=== PATIENT | female | born 1945 | race Caucasian/White ===

== ENCOUNTER 2020-06-30 13:04 | Inpatient (IN) | payer MEDICAID, MEDICARE, OTHER ==
[~2020-06-30] VITALS: Ht 154.9 cm; Wt 55.4 kg
[~2020-06-30 13:04] MED LIST: ASPI-482 PO; BYSTOLIC20 MG PO; CETI10TA16 PO; CITA40TA5 PO; HYDR12.58 PO; ISOS30TA4 PO; LEVO100T5 PO; LEVO50TA5 PO; LOSA100T14 PO; POTA10TA12 PO; SIMV40TA18 PO; ZOLP10TA4 PO
[2020-06-30 13:15] VITALS: BP 168/89
[2020-06-30] MEDS ORDERED: ONDANSETRON PF 4 MG/2 ML VIAL. IVP PRN (14:00)
[2020-06-30] MEDS ORDERED: HYDROmorphone 2 MG/ML VIAL IVP PRN (14:00)
[2020-06-30 14:49] LABS: BASO % 0 % (0-3); EOS % 0 % (0-3); HEMATOCRIT 34.3 % (36.0-47.0); HEMOGLOBIN 11.2 g/dL (12.0-15.5); LYMPH # 0.8 x10^3/uL (1.0-4.8); LYMPH % 7 % (24-48); MEAN CORPUSCULAR HEMOGLOBIN 30 pg (25-35); MEAN CORPUSCULAR HGB CONC 33 g/dL (31-37); MEAN CORPUSCULAR VOLUME 92 fL (79-100); MONO # 0.2 x10^3/uL (0.0-1.1); MONO % 2 % (0-9); NEUT # 10.7 x10^3/uL (1.8-7.7); NEUT % 91 % (31-73); PLATELET COUNT 329 x10^3/uL (140-400); RED BLOOD COUNT 3.72 x10^6/uL (3.50-5.40); RED CELL DISTRIBUTION WIDTH 19.9 % (11.5-14.5); WHITE BLOOD COUNT 11.8 x10^3/uL (4.0-11.0)
[2020-06-30 15:21] LABS: ALBUMIN 3.3 g/dL (3.4-5.0); ALBUMIN/GLOBULIN RATIO 1.3 (1.0-1.7); CALCIUM 8.5 mg/dL (8.5-10.1); CREATININE 1.3 mg/dL (0.6-1.0); GFR 39.9; POTASSIUM 4.3 mmol/L (3.5-5.1); TOTAL BILIRUBIN 1.4 mg/dL (0.2-1.0); TOTAL PROTEIN 5.9 g/dL (6.4-8.2)
--- NOTE | 2020-06-30 15:21 | PDOC2 ---
GI CONSULT Date of Service: DATE: 06/30/20 TIME: 15:00 Reason For Consult: abnormal CT A/P @ [facility] HPI: HPI: 75 y/o female transferred from [facility] w/ A Fib RVR. Reports sudden onset of "strong" chest pain and shortness of breath at home. She thinks it started yesterday. Associated w/ nausea and retching. Apparently got better but started again about 10 minutes ago. WBC 17.2, Hgb 13.5, MCV 99, plt 542, BUN 26, Cr 1.8, lactic 11.6 (to 8.9), bilirubin 2.5, AST 24, ALT 16, Alk Phos 86. CT A/P showed coronary artery calcifications, moderately dilated cardiomegaly, poor visualization of the GB w/ fluid and edema, mild splenomegaly, mild ascites, and cystic and solid lesions int he left adnexa concerning for ovarian cancer. Denies reflux/heartburn, dysphagia, diarrhea, hematochezia, and melena. Has had a bad taste in her mouth recently, even after drinking water. Sometimes has constipation - yesterday had some small hard stools and last "good" bowel movement was about 3 days ago. Daughter about a year ago - she didn't feel like eating for awhile and lost weight but recently has gained weight. No previous EGD or colonoscopy. No GB, liver, pancreas, or PUD history. Denies NSAID use. H/o A Fib on Eliquis. Also took 8 ASA when chest pain started. Indicates evaluation at [facility] 1.5 years ago - says she has "a mass in my uterus." Surgery was recommended but she had to have a stress test first. Says she did that but then no one ever called to schedule surgery and the mass doesn't bother her. PMH: PMH: A Fib, CAD w/ stents, HTN, [place], pneumonia, HLD, TORY, anxiety, OA, CKD, UTI, hypothyroidism FH: Family History: No pertinent hx Social History: Smoke: Quit (remote) ALCOHOL: none Drugs: None ROS: GEN: Denies fevers, chills, sweats HEENT: Denies blurred vision, sore throat CV: +CP RESP: +SOA GI: Per HPI : Denies hematuria, dysuria ENDO: fluctuating weight NEURO: Denies confusion, dizziness MSK: Denies weakness, joint pain/swelling SKIN: Denies jaundice, pruritus Vitals: Vitals: Vital Signs Date Time Temp Pulse Resp B/P (MAP) Pulse Ox O2 Delivery O2 Flow Rate FiO2 06/30/20 13:15 98.1 95 16 168/89 (115) 94 Room Air 98.1 Labs: Labs: Laboratory Tests Test 06/30/20 14:30 White Blood Count 11.8 x10^3/uL (4.0-11.0) Red Blood Count 3.72 x10^6/uL (3.50-5.40) Hemoglobin 11.2 g/dL (12.0-15.5) Hematocrit 34.3 % (36.0-47.0) Mean Corpuscular Volume 92 fL (79-100) Mean Corpuscular Hemoglobin 30 pg (25-35) Mean Corpuscular Hemoglobin Concent 33 g/dL (31-37) Red Cell Distribution Width 19.9 % (11.5-14.5) Platelet Count 329 x10^3/uL (140-400) Neutrophils (%) (Auto) 91 % (31-73) Lymphocytes (%) (Auto) 7 % (24-48) Monocytes (%) (Auto) 2 % (0-9) Eosinophils (%) (Auto) 0 % (0-3) Basophils (%) (Auto) 0 % (0-3) Neutrophils # (Auto) 10.7 x10^3/uL (1.8-7.7) Lymphocytes # (Auto) 0.8 x10^3/uL (1.0-4.8) Monocytes # (Auto) 0.2 x10^3/uL (0.0-1.1) Eosinophils # (Auto) 0.0 x10^3/uL (0.0-0.7) Basophils # (Auto) 0.0 x10^3/uL (0.0-0.2) Allergies: Coded Allergies: amlodipine (Verified Allergy, Intermediate, Swelling, 02/24/15) hydralazine (Verified Allergy, Intermediate, Rash, 02/24/15) morphine (Verified Allergy, Intermediate, 02/24/15) "makes me act loopy" sulfamethoxazole (Verified Allergy, Unknown, 02/24/15) trimethoprim (Verified Allergy, Unknown, 02/24/15) Imaging: Imaging: Per HPI. PE: GEN: anxious HEENT: Atraumatic, PERRL LUNGS: diminished anteriorly HEART: irregularly irregular - chest wall TTP (left, middle, right) ABD: NABS, soft, non-distended, some fullness to left EXTREMITY: trace BLE edema SKIN: No rashes, no jaundice NEURO/PSYCH: A & O 3 - a bit forgetful A/P: A/P: Chest pain, SOA Leukocytosis, lactic acidosis, SHASHANK, hyperbilirubinemia A Fib, h/o CAD Abnormal CT - poor visualization of the GB w/ fluid and edema, mild splenomegaly, mild ascites, cystic and solid lesions in the left adnexa concerning for ovarian cancer Dysgeusia Constipation CRC screen - none Depression R/o COVID-19 -- Await cardiology, MIG WELDER, and surgery evaluations - defer diet to them. 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 Treat constipation as able. Interval labs pending. MADDISON CARRENO Jun 30, 2020 15:21
[2020-06-30 15:27] LABS: % LYMPHS 9 % (24-48); % MONOS 3 % (0-10); % SEGS 88 % (35-66); ANISOCYTOSIS SLIGHT; PLT ESTIMATE ADEQUATE (ADEQUATE); POIKILOCYTOSIS SLIGHT
[2020-06-30 15:28] LABS: OVALOCYTES FEW; POLYCHROMASIA SLIGHT; TEAR DROP CELLS OCC
[2020-06-30 15:32] VITALS: BP 158/87
[2020-06-30] MEDS: IV NORMAL SALINE 1000ML BAG 1,000 ML IV SCH (16:18)
--- NOTE | 2020-06-30 16:26 | PDOC2 ---
SHERIF LARIOS FITNESS CONSULTANT 06/30/20 1626: CONSULT Date of Consult Date of Consult DATE: 06/30/20 TIME: 16:16 Reason for Consult Reason for Consult: abnormal CT Referring Physician Referring Physician: Dr austin Identification/Chief Complaint Chief Complaint SOA Source Source: Chart review, Patient History of Present Illness Reason for Visit: Admitted due to SOA--she said it was severe. She does have a significant cardia c hx. Denies abdominal pain, maybe some nausea with SOA. Does report she had a uterine mass that Paulo was planning to operate on, but had not been scheduled yet. Lab work concerning at [facility] with lactic acidosis, leukocystosis previous admission on 06/19, US done for post menopausal bleeding showed gallstones and possible cholecystitis CT also concerning for adnexal mass, possible neoplasm Past Medical History Cardiovascular: CAD, HTN, SD, Hyperlipidemia Pulmonary: Other CENTRAL NERVOUS SYSTEM: Other GI: No pertinent hx Heme/Onc: No pertinent hx Hepatobiliary: No pertinent hx Psych: Anxiety Musculoskeletal: Osteoarthritis Rheumatologic: No pertinent hx Infectious disease: No pertinent hx Renal/: Chronic renal insuff, UTI Endocrine: Hypothyroidism Past Surgical History Past Surgical History: Cataract Removal, Other Family History Family History: Diabetes, Stroke Social History Quit (remote) ALCOHOL: none Drugs: None Lives: with Family Domestic Violence: Neg Current Medications Current Medications Current Medications Sodium Chloride 1,000 ml @ 75 mls/hr [id number] IV ; Start 06/30/20 at 14:00 Hydromorphone HCl (Dilaudid) 1 mg PRN Q4HRS PRN IVP PAIN; Start 06/30/20 at 14:00 Ondansetron HCl (Zofran) 4 mg PRN Q4HRS PRN IVP NAUSEA/VOMITING; Start 06/30/20 at 14:00 Piperacillin Sod/ Tazobactam Sod 2.25 gm/Sodium Chloride 50 ml @ 100 mls/hr Q6HRS IV ; Start 06/30/20 at 14:00 Linezolid/Dextrose 300 ml @ 300 mls/hr Q12HR IV ; Start 06/30/20 at 21:00 Pantoprazole Sodium (Protonix) 40 mg DAILYAC PO ; Start 07/01/20 at 07:30 Polyethylene Glycol (miraLAX PACKET) 17 gm DAILY PO ; Start 07/01/20 at 09:00 Active Scripts Active Levothyroxine Sodium 50 Mcg Tablet 50 Tab PO DAILY Reported Isosorbide Mononitrate Er (Isosorbide Mononitrate) 30 Mg Tab.er.24h 1 Tab PO DAILY Hydrochlorothiazide Tablet (Hydrochlorothiazide) 12.5 Mg Tablet 1 Tab PO DAILY Losartan Potassium 100 Mg Tablet 1 Tab PO DAILY Citalopram Hbr (Citalopram Hydrobromide) 40 Mg Tablet 1 Tab PO HS Simvastatin 40 Mg Tablet 1 Tab PO QHS Aspir 81 (Aspirin) 81 Mg Tablet.dr 1 Tab PO DAILY Potassium Chloride 10 Meq Capsule.er 20 Meq PO BIDWMEALS Zolpidem Tartrate 10 Mg Tablet 10 Mg PO PRN QHS PRN Cetirizine Hcl 10 Mg Tablet 1 Tab PO PRN DAILY PRN Bystolic (Nebivolol Hcl) 20 Mg Tablet 1 Tab PO DAILY Allergies Allergies: Coded Allergies: amlodipine (Verified Allergy, Intermediate, Swelling, 02/24/15) hydralazine (Verified Allergy, Intermediate, Rash, 02/24/15) morphine (Verified Allergy, Intermediate, 02/24/15) "makes me act loopy" sulfamethoxazole (Verified Allergy, Unknown, 02/24/15) trimethoprim (Verified Allergy, Unknown, 02/24/15) ROS General: YES: Appetite (low); No: Chills PSYCHOLOGICAL ROS: No: Anxiety, Depression Eyes: No Blurry vision, No Double vision HEENT: No: Heacaches, Sore Throat Hematological and Lymphatic: YES: Bleeding Problems; No: Blood Clots Respiratory: YES: Shortness of breath; No: Cough Cardiovascular: yes Chest Pain; No Palpitations Gastrointestinal: Yes Nausea; No Vomiting, No Abdominal Pain Genitourinary: No Dysuria, No Hematuria Musculoskeletal: No Joint Pain, No Muscular Weakness Neurological: No Impaired Coord/balance, No Numbness/Tingling Skin: Yes Rash (laceration to right echavarria); No Pruritus Physical Exam General: Alert, Cooperative, No acute distress HEENT: Atraumatic, PERRLA Lungs: Clear to auscultation, Normal air movement Heart: Regular rate, Normal S1, Normal S2 Abdomen: Soft, Other (mildly ttp epigastric ) Extremities: No clubbing, No cyanosis Skin: No rashes, Other (right echavarria scabbed area) Neuro: Normal speech, Sensation intact Psych/Mental Status: Mental status NL, Mood NL Vitals VITALS Vital Signs Date Time Temp Pulse Resp B/P (MAP) Pulse Ox O2 Delivery O2 Flow Rate FiO2 06/30/20 15:32 98.3 94 16 158/87 (110) 96 Room Air 98.3 Labs Labs Laboratory Tests Test 06/30/20 14:30 06/30/20 15:32 White Blood Count 11.8 x10^3/uL (4.0-11.0) Red Blood Count 3.72 x10^6/uL (3.50-5.40) Hemoglobin 11.2 g/dL (12.0-15.5) Hematocrit 34.3 % (36.0-47.0) Mean Corpuscular Volume 92 fL (79-100) Mean Corpuscular Hemoglobin 30 pg (25-35) Mean Corpuscular Hemoglobin Concent 33 g/dL (31-37) Red Cell Distribution Width 19.9 % (11.5-14.5) Platelet Count 329 x10^3/uL (140-400) Neutrophils (%) (Auto) 91 % (31-73) Lymphocytes (%) (Auto) 7 % (24-48) Monocytes (%) (Auto) 2 % (0-9) Eosinophils (%) (Auto) 0 % (0-3) Basophils (%) (Auto) 0 % (0-3) Neutrophils # (Auto) 10.7 x10^3/uL (1.8-7.7) Lymphocytes # (Auto) 0.8 x10^3/uL (1.0-4.8) Monocytes # (Auto) 0.2 x10^3/uL (0.0-1.1) Eosinophils # (Auto) 0.0 x10^3/uL (0.0-0.7) Basophils # (Auto) 0.0 x10^3/uL (0.0-0.2) Segmented Neutrophils % 88 % (35-66) Lymphocytes % 9 % (24-48) Monocytes % 3 % (0-10) Platelet Estimate Adequate (ADEQUATE) Polychromasia Slight Poikilocytosis Slight Anisocytosis Slight Tear Drop Cells Occ Ovalocytes Few Sodium Level 139 mmol/L (136-145) Potassium Level 4.3 mmol/L (3.5-5.1) Chloride Level 104 mmol/L (98-107) Carbon Dioxide Level 25 mmol/L (21-32) Anion Gap 10 (6-14) Blood Urea Nitrogen 30 mg/dL (7-20) Creatinine 1.3 mg/dL (0.6-1.0) Estimated GFR (Cockcroft-Gault) 39.9 BUN/Creatinine Ratio 23 (6-20) Glucose Level 104 mg/dL (70-99) Lactic Acid Level 1.6 mmol/L (0.4-2.0) Calcium Level 8.5 mg/dL (8.5-10.1) Total Bilirubin 1.4 mg/dL (0.2-1.0) Aspartate Amino Transf (AST/SGOT) 195 U/L (15-37) Alanine Aminotransferase (ALT/SGPT) 78 U/L (14-59) Alkaline Phosphatase 71 U/L (46-116) Lactate Dehydrogenase 541 U/L (81-234) Total Protein 5.9 g/dL (6.4-8.2) Albumin 3.3 g/dL (3.4-5.0) Albumin/Globulin Ratio 1.3 (1.0-1.7) Lipase 104 U/L (73-393) SARS-CoV-2 Antigen (Rapid) Negative (NEGATIVE) Laboratory Tests Test 06/30/20 14:30 06/30/20 15:32 White Blood Count 11.8 x10^3/uL (4.0-11.0) Red Blood Count 3.72 x10^6/uL (3.50-5.40) Hemoglobin 11.2 g/dL (12.0-15.5) Hematocrit 34.3 % (36.0-47.0) Mean Corpuscular Volume 92 fL (79-100) Mean Corpuscular Hemoglobin 30 pg (25-35) Mean Corpuscular Hemoglobin Concent 33 g/dL (31-37) Red Cell Distribution Width 19.9 % (11.5-14.5) Platelet Count 329 x10^3/uL (140-400) Neutrophils (%) (Auto) 91 % (31-73) Lymphocytes (%) (Auto) 7 % (24-48) Monocytes (%) (Auto) 2 % (0-9) Eosinophils (%) (Auto) 0 % (0-3) Basophils (%) (Auto) 0 % (0-3) Neutrophils # (Auto) 10.7 x10^3/uL (1.8-7.7) Lymphocytes # (Auto) 0.8 x10^3/uL (1.0-4.8) Monocytes # (Auto) 0.2 x10^3/uL (0.0-1.1) Eosinophils # (Auto) 0.0 x10^3/uL (0.0-0.7) Basophils # (Auto) 0.0 x10^3/uL (0.0-0.2) Segmented Neutrophils % 88 % (35-66) Lymphocytes % 9 % (24-48) Monocytes % 3 % (0-10) Platelet Estimate Adequate (ADEQUATE) Polychromasia Slight Poikilocytosis Slight Anisocytosis Slight Tear Drop Cells Occ Ovalocytes Few Sodium Level 139 mmol/L (136-145) Potassium Level 4.3 mmol/L (3.5-5.1) Chloride Level 104 mmol/L (98-107) Carbon Dioxide Level 25 mmol/L (21-32) Anion Gap 10 (6-14) Blood Urea Nitrogen 30 mg/dL (7-20) Creatinine 1.3 mg/dL (0.6-1.0) Estimated GFR (Cockcroft-Gault) 39.9 BUN/Creatinine Ratio 23 (6-20) Glucose Level 104 mg/dL (70-99) Lactic Acid Level 1.6 mmol/L (0.4-2.0) Calcium Level 8.5 mg/dL (8.5-10.1) Total Bilirubin 1.4 mg/dL (0.2-1.0) Aspartate Amino Transf (AST/SGOT) 195 U/L (15-37) Alanine Aminotransferase (ALT/SGPT) 78 U/L (14-59) Alkaline Phosphatase 71 U/L (46-116) Lactate Dehydrogenase 541 U/L (81-234) Total Protein 5.9 g/dL (6.4-8.2) Albumin 3.3 g/dL (3.4-5.0) Albumin/Globulin Ratio 1.3 (1.0-1.7) Lipase 104 U/L (73-393) SARS-CoV-2 Antigen (Rapid) Negative (NEGATIVE) Assessment/Plan Assessment/Plan SOA, AFIB, CHF, CAD stents--on eliquis--on hold cholelithiasis -? cholecystitis--T bili 2.5, leukocytosis, lactic acid adnexal mass--double corner cutter consult pending, ? seen at [facility] for this will check HIDA to assess for cholecystitis ANCA MORALES MD 06/30/20 1717: CONSULT Assessment/Plan Assessment/Plan Agree with above plan SHERIF LARIOS APRN Jun 30, 2020 16:26 ANCA MORALES MD Jun 30, 2020 17:17
[2020-06-30] MEDS: PIPERACILLIN/TAZOBACTAM 2.25 GM in IV NORMAL SALINE 50ML 50 ML IV SCH ×3 (18:00→23:32)
[2020-06-30] MEDS ORDERED: INFLUENZA VAX SCREEN BY RX. MC ONE (18:45)
[2020-06-30] MEDS ORDERED: FLU VACC QS 2020-21(6MOS+)/PF 0.5 ML SYRINGE. VAX IM ONE (18:45)
[2020-06-30 19:00] VITALS: BP 171/104
--- NOTE | 2020-06-30 19:50 | NUR ---
Checked with patient's pharmacy, [facility] if received flu vaccine. They reported that she did not received flu vaccine at their store.
--- NOTE | 2020-06-30 20:57 | NUR ---
Pt offered flu vaccine this evening. Pt requests to hold off until the morning. Will recheck in the AM and pass along to day RN.
[2020-06-30 23:04] VITALS: BP 168/75
[2020-07-01] VITALS (8 sets, daily range): BP systolic 152–189; BP diastolic 87–107
[2020-07-01] MEDS: PIPERACILLIN/TAZOBACTAM 2.25 GM in IV NORMAL SALINE 50ML 50 ML IV SCH ×4 (05:33→23:37)
[2020-07-01] MEDS: IV NORMAL SALINE 1000ML BAG 1,000 ML IV SCH ×2 (05:33→18:02)
[2020-07-01] MEDS: PANTOPRAZOLE 40 MG TABLET.DR. PO SCH ×2 (07:30→10:50)
[2020-07-01] MEDS: POLYETHYLENE GLYCOL 3350 17 GM PACKET. PO SCH ×2 (09:00→10:50)
--- NOTE | 2020-07-01 09:23 | RAD ---
EXAM: HEPATOBILIARY SCINTIGRAPHY. HISTORY: Gallbladder wall thickening, concern for cholecystitis TECHNIQUE: 5.5 mCi technetium-99m Choletec were administered intravenously and scintigraphic images of the abdomen obtained. FINDINGS: There is prompt hepatic clearance of tracer from the blood pool. There is homogeneous distribution throughout the liver. There is normal filling of the gallbladder and clearance into the biliary tree and small bowel. IMPRESSION: 1. The gallbladder fills with activity indicating cystic duct patency. Electronically signed by: Citlalli Malone MD (07/01/2020 9:20 AM) [id number]
--- NOTE | 2020-07-01 09:32 | PDOC2 ---
CONSULT Date of Consult Date of Consult DATE: 07/01/20 TIME: 09:31 Reason for Consult Reason for Consult: Abnml CT History of Present Illness Reason for Visit: The pt is a 75y who presented to the ER with CP and SOA. In the course of her w/u the pt underwent imaging. A CT revealed the followin. Coronary artery calcifications. Moderately dilated cardiomegaly likely secondary to ischemic cardiomyopathy. 2. Poor visualization of the gallbladder with fluid and edema and loss of fat planes between the gallbladder fossa and surrounding structures suggest acute cholecystitis. Gallbladder cancer is felt be less likely. 3. Mild splenomegaly. 4. Mild ascites. 5. Cystic and solid lesions in the left adnexa likely ovarian cancer. An u/s revealed the following: Abnormal pelvic ultrasound showing large left adnexal 7.2 cm cyst and a small amount of pelvic free fluid. The solid mass of the left adnexa seen on earlier same day CT is obscured on transabdominal pelvic ultrasound by bowel gas but remains concerning for possible primary left ovarian neoplasm. This could be benign or malignant. Gynecologic oncology referral is recommended. Consider also endovaginal ultrasound when clinically feasible. The pt reports that about 1.5yr ago she was evaluated at [facility] where she was told she has a mass in my uterus. The pt does not recall what initiated the w/u, but likely PMB. From our discussion it sounds like they clear expressed that the mass was on the uterus (likely fibroid). Although they did say they were concerned about CA, plus no uterine masses were seen on this admissions imaging. She was to undergo a stress test but after completion was never contacted for surgery. 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 She states that she went through changes in her life early, but also states that she stopped having period later than usual. The pt states that she took ERT/HRT for about yr. Menarche 17yo Past Medical History Cardiovascular: CAD, HTN, [place], Hyperlipidemia Pulmonary: Other CENTRAL NERVOUS SYSTEM: Other GI: No pertinent hx Heme/Onc: No pertinent hx Hepatobiliary: No pertinent hx Psych: Anxiety Musculoskeletal: Osteoarthritis Rheumatologic: No pertinent hx Infectious disease: No pertinent hx Renal/: Chronic renal insuff, UTI Endocrine: Hypothyroidism Past Surgical History Past Surgical History: Cataract Removal, Other Family History Family History: Diabetes, Stroke Social History Quit (remote) ALCOHOL: none Drugs: None Lives: with Family Domestic Violence: Neg Current Medications Current Medications Current Medications Sodium Chloride 1,000 ml @ 75 mls/hr [id number] IV Last administered on 06/13 at 05:33; Start 06/30/20 at 14:00 Hydromorphone HCl (Dilaudid) 1 mg PRN Q4HRS PRN IVP PAIN; Start 06/30/20 at 14:00 Ondansetron HCl (Zofran) 4 mg PRN Q4HRS PRN IVP NAUSEA/VOMITING; Start 06/30/20 at 14:00 Piperacillin Sod/ Tazobactam Sod 2.25 gm/Sodium Chloride 50 ml @ 100 mls/hr Q6HRS IV Last administered on 07/01/20at 05:33; Start 06/30/20 at 14:00 Linezolid/Dextrose 300 ml @ 300 mls/hr Q12HR IV Last administered on 06/30/20at 20:56; Start 06/30/20 at 21:00 Pantoprazole Sodium (Protonix) 40 mg DAILYAC PO ; Start 07/01/20 at 07:30 Polyethylene Glycol (miraLAX PACKET) 17 gm DAILY PO ; Start 07/01/20 at 09:00 Info (FLU VACCINE SCREEN per RX) 1 each 1X ONCE MC Last administered on 06/30/20at 19:00; Start 06/30/20 at 18:45; Stop 06/30/20 at 18:46; Status DC Influenza Virus Vaccine Quadrival (Fluzone Quad [id number] Syringe) 0.5 ml ONCE ONCE VAX IM ; Start 06/30/20 at 18:45; Stop 06/30/20 at 18:46; Status DC Active Scripts Active Levothyroxine Sodium 50 Mcg Tablet 50 Tab PO DAILY Reported Isosorbide Mononitrate Er (Isosorbide Mononitrate) 30 Mg Tab.er.24h 1 Tab PO DAILY Hydrochlorothiazide Tablet (Hydrochlorothiazide) 12.5 Mg Tablet 1 Tab PO DAILY Losartan Potassium 100 Mg Tablet 1 Tab PO DAILY Citalopram Hbr (Citalopram Hydrobromide) 40 Mg Tablet 1 Tab PO HS Simvastatin 40 Mg Tablet 1 Tab PO QHS Aspir 81 (Aspirin) 81 Mg Tablet.dr 1 Tab PO DAILY Potassium Chloride 10 Meq Capsule.er 20 Meq PO BIDWMEALS Zolpidem Tartrate 10 Mg Tablet 10 Mg PO PRN QHS PRN Cetirizine Hcl 10 Mg Tablet 1 Tab PO PRN DAILY PRN Bystolic (Nebivolol Hcl) 20 Mg Tablet 1 Tab PO DAILY Allergies Allergies: Coded Allergies: amlodipine (Verified Allergy, Intermediate, Swelling, 02/24/15) hydralazine (Verified Allergy, Intermediate, Rash, 02/24/15) morphine (Verified Allergy, Intermediate, 02/24/15) "makes me act loopy" sulfamethoxazole (Verified Allergy, Intermediate, 07/01/20) trimethoprim (Verified Allergy, Intermediate, 07/01/20) Physical Exam HEENT: PERRLA, Mucous membr. moist/pink Lungs: Clear to auscultation, Normal air movement Heart: Regular rate, Normal S1, Normal S2, No murmurs Abdomen: Normal bowel sounds, Soft, No tenderness, No hepatosplenomegaly, No masses Extremities: No clubbing, No cyanosis, No edema, Normal pulses, No tenderness/swelling Skin: No rashes, No breakdown Vitals VITALS Vital Signs Date Time Temp Pulse Resp B/P (MAP) Pulse Ox O2 Delivery O2 Flow Rate FiO2 07/01/20 07:00 98.9 105 18 189/100 (129) 94 Room Air 98.9 Labs Labs Laboratory Tests Test 06/30/20 14:30 06/30/20 15:32 White Blood Count 11.8 x10^3/uL (4.0-11.0) Red Blood Count 3.72 x10^6/uL (3.50-5.40) Hemoglobin 11.2 g/dL (12.0-15.5) Hematocrit 34.3 % (36.0-47.0) Mean Corpuscular Volume 92 fL (79-100) Mean Corpuscular Hemoglobin 30 pg (25-35) Mean Corpuscular Hemoglobin Concent 33 g/dL (31-37) Red Cell Distribution Width 19.9 % (11.5-14.5) Platelet Count 329 x10^3/uL (140-400) Neutrophils (%) (Auto) 91 % (31-73) Lymphocytes (%) (Auto) 7 % (24-48) Monocytes (%) (Auto) 2 % (0-9) Eosinophils (%) (Auto) 0 % (0-3) Basophils (%) (Auto) 0 % (0-3) Neutrophils # (Auto) 10.7 x10^3/uL (1.8-7.7) Lymphocytes # (Auto) 0.8 x10^3/uL (1.0-4.8) Monocytes # (Auto) 0.2 x10^3/uL (0.0-1.1) Eosinophils # (Auto) 0.0 x10^3/uL (0.0-0.7) Basophils # (Auto) 0.0 x10^3/uL (0.0-0.2) Segmented Neutrophils % 88 % (35-66) Lymphocytes % 9 % (24-48) Monocytes % 3 % (0-10) Platelet Estimate Adequate (ADEQUATE) Polychromasia Slight Poikilocytosis Slight Anisocytosis Slight Tear Drop Cells Occ Ovalocytes Few Sodium Level 139 mmol/L (136-145) Potassium Level 4.3 mmol/L (3.5-5.1) Chloride Level 104 mmol/L (98-107) Carbon Dioxide Level 25 mmol/L (21-32) Anion Gap 10 (6-14) Blood Urea Nitrogen 30 mg/dL (7-20) Creatinine 1.3 mg/dL (0.6-1.0) Estimated GFR (Cockcroft-Gault) 39.9 BUN/Creatinine Ratio 23 (6-20) Glucose Level 104 mg/dL (70-99) Lactic Acid Level 1.6 mmol/L (0.4-2.0) Calcium Level 8.5 mg/dL (8.5-10.1) Total Bilirubin 1.4 mg/dL (0.2-1.0) Aspartate Amino Transf (AST/SGOT) 195 U/L (15-37) Alanine Aminotransferase (ALT/SGPT) 78 U/L (14-59) Alkaline Phosphatase 71 U/L (46-116) Lactate Dehydrogenase 541 U/L (81-234) Total Protein 5.9 g/dL (6.4-8.2) Albumin 3.3 g/dL (3.4-5.0) Albumin/Globulin Ratio 1.3 (1.0-1.7) Lipase 104 U/L (73-393) SARS-CoV-2 Antigen (Rapid) Negative (NEGATIVE) Laboratory Tests Test 06/30/20 14:30 06/30/20 15:32 White Blood Count 11.8 x10^3/uL (4.0-11.0) Red Blood Count 3.72 x10^6/uL (3.50-5.40) Hemoglobin 11.2 g/dL (12.0-15.5) Hematocrit 34.3 % (36.0-47.0) Mean Corpuscular Volume 92 fL (79-100) Mean Corpuscular Hemoglobin 30 pg (25-35) Mean Corpuscular Hemoglobin Concent 33 g/dL (31-37) Red Cell Distribution Width 19.9 % (11.5-14.5) Platelet Count 329 x10^3/uL (140-400) Neutrophils (%) (Auto) 91 % (31-73) Lymphocytes (%) (Auto) 7 % (24-48) Monocytes (%) (Auto) 2 % (0-9) Eosinophils (%) (Auto) 0 % (0-3) Basophils (%) (Auto) 0 % (0-3) Neutrophils # (Auto) 10.7 x10^3/uL (1.8-7.7) Lymphocytes # (Auto) 0.8 x10^3/uL (1.0-4.8) Monocytes # (Auto) 0.2 x10^3/uL (0.0-1.1) Eosinophils # (Auto) 0.0 x10^3/uL (0.0-0.7) Basophils # (Auto) 0.0 x10^3/uL (0.0-0.2) Segmented Neutrophils % 88 % (35-66) Lymphocytes % 9 % (24-48) Monocytes % 3 % (0-10) Platelet Estimate Adequate (ADEQUATE) Polychromasia Slight Poikilocytosis Slight Anisocytosis Slight Tear Drop Cells Occ Ovalocytes Few Sodium Level 139 mmol/L (136-145) Potassium Level 4.3 mmol/L (3.5-5.1) Chloride Level 104 mmol/L (98-107) Carbon Dioxide Level 25 mmol/L (21-32) Anion Gap 10 (6-14) Blood Urea Nitrogen 30 mg/dL (7-20) Creatinine 1.3 mg/dL (0.6-1.0) Estimated GFR (Cockcroft-Gault) 39.9 BUN/Creatinine Ratio 23 (6-20) Glucose Level 104 mg/dL (70-99) Lactic Acid Level 1.6 mmol/L (0.4-2.0) Calcium Level 8.5 mg/dL (8.5-10.1) Total Bilirubin 1.4 mg/dL (0.2-1.0) Aspartate Amino Transf (AST/SGOT) 195 U/L (15-37) Alanine Aminotransferase (ALT/SGPT) 78 U/L (14-59) Alkaline Phosphatase 71 U/L (46-116) Lactate Dehydrogenase 541 U/L (81-234) Total Protein 5.9 g/dL (6.4-8.2) Albumin 3.3 g/dL (3.4-5.0) Albumin/Globulin Ratio 1.3 (1.0-1.7) Lipase 104 U/L (73-393) SARS-CoV-2 Antigen (Rapid) Negative (NEGATIVE) Assessment/Plan Assessment/Plan Assessment: 75y who admitted for CP and SOA Recommendations 1.) Ovarian mass Due to pt age, size of the mass and ascites very likely an ovarian CA. It is unclear if they were aware of this mass previously based on her history. The pt should be referred to a GynOnc for eval to determine if she is a candidate for surgery or chemotherapy. 2.) PMB previously w/u, may be were mass was first noted Chest pain, SOA cardiology consulted, Chronic probable diastolic CHF; appears compensated 3.) A Fib, h/o CAD cardiology consulted, s/p PCI/stents 4.) Poor visualization of the GB w/ fluid and edema, mild splenomegaly, mild ascites, cystic along with the ovarian findings GI and Gen Surgery consulted 5.) Depression 6.) Rapid Covid neg 7.) SHASHANK on CKD, hyperkalemia 8.) Hypertension; controlled 9.) Hypothyroidism 10.) Encephalopathy vs dementia SONNY MORALES MD Jul 01, 2020 09:32
--- NOTE | 2020-07-01 09:40 | PDOC ---
Date of Service: DATE: 07/01/20 TIME: 09:35 Subjective: Subjective: Denies pain. Objective: Objective: Able to review other records: Abd US 06/17/20 @ [facility]: cholelithiasis w/ sludge and GB wall thickening and pericholecystic fluid, mild splenomegaly, CBD 4.1 mm. Reviewed SENIOR MANAGEMENT CONSULTANT note - refer to GynOnc for probable ovarian cancer. Vital Signs: Vital Signs Date Time Temp Pulse Resp B/P (MAP) Pulse Ox O2 Delivery O2 Flow Rate FiO2 07/01/20 07:00 98.9 105 18 189/100 (129) 94 Room Air 98.9 Labs: Laboratory Tests Test 06/30/20 14:30 06/30/20 15:32 White Blood Count 11.8 x10^3/uL Red Blood Count 3.72 x10^6/uL Hemoglobin 11.2 g/dL Hematocrit 34.3 % Mean Corpuscular Volume 92 fL Mean Corpuscular Hemoglobin 30 pg Mean Corpuscular Hemoglobin Concent 33 g/dL Red Cell Distribution Width 19.9 % Platelet Count 329 x10^3/uL Neutrophils (%) (Auto) 91 % Lymphocytes (%) (Auto) 7 % Monocytes (%) (Auto) 2 % Eosinophils (%) (Auto) 0 % Basophils (%) (Auto) 0 % Neutrophils # (Auto) 10.7 x10^3/uL Lymphocytes # (Auto) 0.8 x10^3/uL Monocytes # (Auto) 0.2 x10^3/uL Eosinophils # (Auto) 0.0 x10^3/uL Basophils # (Auto) 0.0 x10^3/uL Segmented Neutrophils % 88 % Lymphocytes % 9 % Monocytes % 3 % Platelet Estimate Adequate Polychromasia Slight Poikilocytosis Slight Anisocytosis Slight Tear Drop Cells Occ Ovalocytes Few Sodium Level 139 mmol/L Potassium Level 4.3 mmol/L Chloride Level 104 mmol/L Carbon Dioxide Level 25 mmol/L Anion Gap 10 Blood Urea Nitrogen 30 mg/dL Creatinine 1.3 mg/dL Estimated GFR (Cockcroft-Gault) 39.9 BUN/Creatinine Ratio 23 Glucose Level 104 mg/dL Lactic Acid Level 1.6 mmol/L Calcium Level 8.5 mg/dL Total Bilirubin 1.4 mg/dL Aspartate Amino Transf (AST/SGOT) 195 U/L Alanine Aminotransferase (ALT/SGPT) 78 U/L Alkaline Phosphatase 71 U/L Lactate Dehydrogenase 541 U/L Total Protein 5.9 g/dL Albumin 3.3 g/dL Albumin/Globulin Ratio 1.3 Lipase 104 U/L SARS-CoV-2 Antigen (Rapid) Negative Imaging: HIDA 07/01 IMPRESSION: 1. The gallbladder fills with activity indicating cystic duct patency. PE: GEN: NAD LUNGS: clear anteriorly HEART: irregular ABD: NABS, S/ND/NT NEURO/PSYCH: A & O 3, forgetful A/P: Chest pain, SOA - resolved Leukocytosis, lactic acidosis, SHASHANK, hyperbilirubinemia - no labs today A Fib, h/o CAD Cholelithiasis - no cholecystitis per HIDA as above Rapid COVID negative -- She's not a good historian. Recheck labs. Justicifation of Admission Dx: Justifications for Admission: Justification of Admission Dx: Yes MADDISON CARRENO Jul 01, 2020 09:40
--- NOTE | 2020-07-01 10:10 | NUR ---
SW following. Discussed with RN, pt from home alone, room air, NPO. Pt having a HIDA scan today. Per BUSINESS DEVELOPMENT MANAGER note refer to BUSINESS DEVELOPMENT MANAGER ONC for probable ovarian cancer. SW spoke with Dr. Ryder, he will let SW know the plan when he sees pt this morning. SW expressed concern to Dr. Ryder RE inpatient hospital transfer because of hospitals in our area being at capacity due to COVID and short staff. SW will continue to follow.
[2020-07-01] MEDS ORDERED: CETIRIZINE HCL 10 MG TABLET. PO PRN (10:15)
[2020-07-01] MEDS ORDERED: ACETAMINOPHEN 325 MG TABLET. PO PRN (10:15)
--- NOTE | 2020-07-01 10:24 | PDOC ---
SHERIF LARIOS PROFESSOR OF GENETICS 07/01/20 1024: SURGICAL PROGRESS NOTE DATE: 07/01/20 TIME: 10:23 Subjective no abdominal pain hungry Vital Signs Vital Signs Date Time Temp Pulse Resp B/P (MAP) Pulse Ox O2 Delivery O2 Flow Rate FiO2 07/01/20 07:00 98.9 105 18 189/100 (129) 94 Room Air 98.9 I&O Intake and Output 07/01/20 07:00 Intake Total 1400 ml Output Total 300 ml Balance 1100 ml Intake Oral 0 ml IV Total 1400 ml Output Urine Total 300 ml # Voids 1 General: Alert, Oriented X3, Cooperative Abdomen: Soft, No tenderness Labs Laboratory Tests Test 06/30/20 14:30 06/30/20 15:32 White Blood Count 11.8 x10^3/uL (4.0-11.0) Red Blood Count 3.72 x10^6/uL (3.50-5.40) Hemoglobin 11.2 g/dL (12.0-15.5) Hematocrit 34.3 % (36.0-47.0) Mean Corpuscular Volume 92 fL (79-100) Mean Corpuscular Hemoglobin 30 pg (25-35) Mean Corpuscular Hemoglobin Concent 33 g/dL (31-37) Red Cell Distribution Width 19.9 % (11.5-14.5) Platelet Count 329 x10^3/uL (140-400) Neutrophils (%) (Auto) 91 % (31-73) Lymphocytes (%) (Auto) 7 % (24-48) Monocytes (%) (Auto) 2 % (0-9) Eosinophils (%) (Auto) 0 % (0-3) Basophils (%) (Auto) 0 % (0-3) Neutrophils # (Auto) 10.7 x10^3/uL (1.8-7.7) Lymphocytes # (Auto) 0.8 x10^3/uL (1.0-4.8) Monocytes # (Auto) 0.2 x10^3/uL (0.0-1.1) Eosinophils # (Auto) 0.0 x10^3/uL (0.0-0.7) Basophils # (Auto) 0.0 x10^3/uL (0.0-0.2) Segmented Neutrophils % 88 % (35-66) Lymphocytes % 9 % (24-48) Monocytes % 3 % (0-10) Platelet Estimate Adequate (ADEQUATE) Polychromasia Slight Poikilocytosis Slight Anisocytosis Slight Tear Drop Cells Occ Ovalocytes Few Sodium Level 139 mmol/L (136-145) Potassium Level 4.3 mmol/L (3.5-5.1) Chloride Level 104 mmol/L (98-107) Carbon Dioxide Level 25 mmol/L (21-32) Anion Gap 10 (6-14) Blood Urea Nitrogen 30 mg/dL (7-20) Creatinine 1.3 mg/dL (0.6-1.0) Estimated GFR (Cockcroft-Gault) 39.9 BUN/Creatinine Ratio 23 (6-20) Glucose Level 104 mg/dL (70-99) Lactic Acid Level 1.6 mmol/L (0.4-2.0) Calcium Level 8.5 mg/dL (8.5-10.1) Total Bilirubin 1.4 mg/dL (0.2-1.0) Aspartate Amino Transf (AST/SGOT) 195 U/L (15-37) Alanine Aminotransferase (ALT/SGPT) 78 U/L (14-59) Alkaline Phosphatase 71 U/L (46-116) Lactate Dehydrogenase 541 U/L (81-234) Total Protein 5.9 g/dL (6.4-8.2) Albumin 3.3 g/dL (3.4-5.0) Albumin/Globulin Ratio 1.3 (1.0-1.7) Lipase 104 U/L (73-393) SARS-CoV-2 Antigen (Rapid) Negative (NEGATIVE) Laboratory Tests Test 06/30/20 14:30 06/30/20 15:32 White Blood Count 11.8 x10^3/uL (4.0-11.0) Red Blood Count 3.72 x10^6/uL (3.50-5.40) Hemoglobin 11.2 g/dL (12.0-15.5) Hematocrit 34.3 % (36.0-47.0) Mean Corpuscular Volume 92 fL (79-100) Mean Corpuscular Hemoglobin 30 pg (25-35) Mean Corpuscular Hemoglobin Concent 33 g/dL (31-37) Red Cell Distribution Width 19.9 % (11.5-14.5) Platelet Count 329 x10^3/uL (140-400) Neutrophils (%) (Auto) 91 % (31-73) Lymphocytes (%) (Auto) 7 % (24-48) Monocytes (%) (Auto) 2 % (0-9) Eosinophils (%) (Auto) 0 % (0-3) Basophils (%) (Auto) 0 % (0-3) Neutrophils # (Auto) 10.7 x10^3/uL (1.8-7.7) Lymphocytes # (Auto) 0.8 x10^3/uL (1.0-4.8) Monocytes # (Auto) 0.2 x10^3/uL (0.0-1.1) Eosinophils # (Auto) 0.0 x10^3/uL (0.0-0.7) Basophils # (Auto) 0.0 x10^3/uL (0.0-0.2) Segmented Neutrophils % 88 % (35-66) Lymphocytes % 9 % (24-48) Monocytes % 3 % (0-10) Platelet Estimate Adequate (ADEQUATE) Polychromasia Slight Poikilocytosis Slight Anisocytosis Slight Tear Drop Cells Occ Ovalocytes Few Sodium Level 139 mmol/L (136-145) Potassium Level 4.3 mmol/L (3.5-5.1) Chloride Level 104 mmol/L (98-107) Carbon Dioxide Level 25 mmol/L (21-32) Anion Gap 10 (6-14) Blood Urea Nitrogen 30 mg/dL (7-20) Creatinine 1.3 mg/dL (0.6-1.0) Estimated GFR (Cockcroft-Gault) 39.9 BUN/Creatinine Ratio 23 (6-20) Glucose Level 104 mg/dL (70-99) Lactic Acid Level 1.6 mmol/L (0.4-2.0) Calcium Level 8.5 mg/dL (8.5-10.1) Total Bilirubin 1.4 mg/dL (0.2-1.0) Aspartate Amino Transf (AST/SGOT) 195 U/L (15-37) Alanine Aminotransferase (ALT/SGPT) 78 U/L (14-59) Alkaline Phosphatase 71 U/L (46-116) Lactate Dehydrogenase 541 U/L (81-234) Total Protein 5.9 g/dL (6.4-8.2) Albumin 3.3 g/dL (3.4-5.0) Albumin/Globulin Ratio 1.3 (1.0-1.7) Lipase 104 U/L (73-393) SARS-CoV-2 Antigen (Rapid) Negative (NEGATIVE) Problem List patent cystic duct--no cholecystitis lfts improved no surgical plans for eva CRISIS CLINICIAN recs noted Justicifation of Admission Dx: Justifications for Admission: Justification of Admission Dx: Yes ANCA MORALES MD 07/02/20 0931: SURGICAL PROGRESS NOTE Assessment/Plan Agree with above SHERIF LARIOS PROFESSOR OF GENETICS Jul 01, 2020 10:24 ANCA MORALES MD Jul 02, 2020 09:31
[2020-07-01] MEDS ORDERED: LEVOTHYROXINE 50 MCG TABLET PO SCH (10:30)
[2020-07-01] MEDS: METOPROLOL TART IMMED RELEASE 50 MG TABLET. PO SCH ×2 (10:49→20:59)
[2020-07-01] MEDS: LEVOTHYROXINE 50 MCG TABLET PO SCH (10:49)
[2020-07-01] MEDS: CITALOPRAM 20 MG TABLET. PO SCH (10:49)
[2020-07-01] MEDS: LOSARTAN POTASSIUM 50 MG TABLET. PO SCH (10:49)
[2020-07-01 11:01] LABS: HEMOGLOBIN 10.2 g/dL (12.0-15.5); RED BLOOD COUNT 3.34 x10^6/uL (3.50-5.40); RED CELL DISTRIBUTION WIDTH 19.3 % (11.5-14.5); WHITE BLOOD COUNT 7.5 x10^3/uL (4.0-11.0)
--- NOTE | 2020-07-01 11:17 | HP ---
ADMIT DATE: HISTORY OF PRESENT ILLNESS: The patient is a 75-year-old female patient who apparently presented to [facility] Emergency Room with a sudden onset of chest pain and shortness of breath. The patient was sitting on the couch for about an hour prior to arrival when she began to feel short of breath and had a central chest discomfort. The shortness of breath is the most distressing to her. She has a history of atrial fibrillation. She is not sure what medication she is taking. She does not feel that her heart rate is elevated. Denies any fever or chills. Denied any falls or trauma. She was apparently extensively investigated in the Emergency Room. With lab work, she was found to have leukocytosis with a white cell count 17,200. She did have also lactic acidosis with lactic acid of 11.6. She has mild hyperkalemia and she did have a chest x-ray done, which showed the patient has moderate cardiomegaly, stable appearance of the chest. The pulmonary vessels appear normal. A curvilinear images of the right are overlying skin folds. There is a diffuse linear opacity in the right lung base, likely discoid atelectasis. She has had a CT scan of the abdomen and pelvis, which showed the patient has coronary artery calcification, moderately dilated cardiomegaly, likely secondary to ischemic cardiomyopathy. There is poor visualization of the gallbladder with fluid and edema and loss of fat planes between the gallbladder fossa and surrounding structures, suggesting acute cholecystitis, gallbladder cancer is felt to be less likely, mild splenomegaly, mild ascites, cystic and solid lesion in the left adnexa, likely ovarian cancer. The patient was given IV fluid. She was actually admitted to [facility] and she received at least 2 liters of fluid and was started on antibiotic and given her finding on the CT scan, she underwent transabdominal and transvaginal ultrasound, which showed abnormal pelvic ultrasound showing large left adnexal 7.2 cm cyst and a small amount of pelvic free fluid and solid mass in the left adnexa seen. On earlier the same day, the CT scan is obscured on transabdominal pelvic ultrasound by bowel gas, but remains concerning for possible primary left ovarian neoplasm. This could be benign or malignant. Gynecologic Oncology referral is recommended. The patient was therefore transferred to [facility] to consult the surgical team as well as the territory sales manager medical. She was kept n.p.o., continued on IV fluid and IV antibiotic. The patient herself has poor memory. PAST MEDICAL HISTORY: Significant for atrial fibrillation with rapid ventricular response, coronary artery disease, hypertension, hyperlipidemia, hypothyroidism. She is known to have coronary artery disease, status post PCI with stent deployment and congestive heart failure. She is also known to have hypothyroidism, chronic kidney disease and obstructive sleep apnea. PAST SURGICAL HISTORY: Significant for cataract extraction, appendectomy, cardiac catheterization with PCI and stent deployment. FAMILY HISTORY: Positive for cancer and stroke. SOCIAL HISTORY: She lives alone. She is an ex-smoker, does not drink alcohol or use any recreational drugs. REVIEW OF SYSTEMS: As per history of present illness. PHYSICAL EXAMINATION: GENERAL: On arrival to the Emergency Room, she looked well and was clearly in no apparent distress. No pallor, jaundice, cyanosis or thyromegaly. No jugular venous distention. No lower limb edema. VITAL SIGNS: Her heart rate was 130, blood pressure was 121/54, temperature was 97.4, respiratory rate was 26, and oxygen saturation was 100% on room air. HEAD, EYES, EARS, NOSE AND THROAT: Showed normocephalic, atraumatic. NECK: Supple. HEART: Normal first and second heart sounds. No gallop, rub or murmur. CHEST: Showed equal bilateral expansion, air entry, vesicular sounds. No crepitation or rhonchi. ABDOMEN: Soft, nontender. There is no guarding or rigidity. No organomegaly. All hernial orifices are intact. Bowel sounds normal. NEUROLOGIC: She is alert, oriented x 3, does have some poor memory, but there is no obvious motor or sensory deficit. EXTREMITIES: Showed no clubbing, cyanosis or edema. LABORATORY DATA: Her lab work in the Emergency Room showed a white cell count 17,200; hemoglobin 13.5; hematocrit 44.9; MCV 99 and platelet count 542,000. Her chemistry showed that her serum sodium is 141, potassium 5.3, chloride 100, bicarbonate 15, anion gap of 26, BUN 26, creatinine 1.8, estimated GFR was 27 mL per minute. Her glucose was 102, calcium was 9.9, total bilirubin 2.5. AST, ALT, alkaline phosphatase were normal. Total protein 7.5, albumin was 4.2. Her white cell count was 17,200; hemoglobin 13.5; hematocrit was 44.9; MCV 99 and platelet count 542,000 with normal manual differential. Her chest x-ray showed that the patient has moderate cardiomegaly. The pulmonary vessels appear normal. CT scan of the abdomen and pelvis without contrast showed that the heart is moderately dilated. There is significant coronary artery calcium present. The gallbladder is not well seen and there is fluid and edema around the gallbladder fossa and loss of fat planes between the gallbladder and the aorta. Mana hepatis and liver and distal stomach and duodenal sweep and pancreatic head, small amount of fluid is seen tracking along the right paracolic gutter. There is a 4 x 3.6 cm solid mass in the left of the uterus and there is an 8.7 cm x 4.9 cm septated cystic structure more anteriorly in the left adnexa. The liver and pancreas as well as adrenal glands and kidneys are normal. The spleen is mildly enlarged. There is no free air. There is no lymphadenopathy. The urinary bladder appears normal. There is no pericolonic inflammation identified and basically, the radiologist felt that the patient might have acute cholecystitis as well as obviously cystic and solid lesion in the left adnexa, likely representing ovarian cancer. ASSESSMENT AND PLAN: The patient was treated with IV fluid. She did receive at least 2 liters of fluid while at [facility] and was transferred to [facility] to consult the surgical team as well as the territory sales manager medical. She was kept n.p.o., continued on IV fluid as well as antibiotic in the form of piperacillin, tazobactam as well as Zyvox. HAIR SMITH MD DR: SALOMON/richy JOB#: [id number] / [id number]
[2020-07-01 11:18] LABS: ALBUMIN 3.1 g/dL (3.4-5.0); ALBUMIN/GLOBULIN RATIO 1.3 (1.0-1.7); CALCIUM 8.3 mg/dL (8.5-10.1); CREATININE 1.1 mg/dL (0.6-1.0); GFR 48.4; TOTAL BILIRUBIN 1.1 mg/dL (0.2-1.0); TOTAL PROTEIN 5.4 g/dL (6.4-8.2)
[2020-07-01 11:19] LABS: POTASSIUM 3.1 mmol/L (3.5-5.1)
--- NOTE | 2020-07-01 11:20 | PN ---
DATE: 07/01/2020 SUBJECTIVE: The patient is resting, almost flat in bed, in no apparent distress. On questioning her, denied any complaint; in particular denied any abdominal pain. Denied any further episodes of chest pain or shortness of breath. PHYSICAL EXAMINATION: GENERAL: When I examined her, she looked well and was clearly in no apparent respiratory distress, somewhat pale, but no jaundice, cyanosis or thyromegaly. No jugular venous distention. No lower limb edema. VITAL SIGNS: Her heart rate was 105, blood pressure was 189/100, temperature was 98.9, respiratory rate was 18 and oxygen saturation was 94% on room air. HEAD, EYES, EARS, NOSE, AND THROAT: Showed normocephalic, atraumatic. NECK: Supple. HEART: Normal first and second heart sounds. No gallop or murmur. CHEST: Clear to auscultation. No crepitation or rhonchi. ABDOMEN: Slightly distended, soft, nontender. There is definitely no guarding or rigidity. No organomegaly. All hernial orifice intact. Bowel sounds normal. NEUROLOGIC: She is grossly intact. Her intake was 1400, output was incompletely recorded. LABORATORY DATA: Her lab work this morning showed white cell count of 11,800; hemoglobin 11; hematocrit 34; MCV 92; and platelet count of 329,000. Serum sodium was 139, potassium 4.3, chloride 104, bicarbonate 25, anion gap of 10, BUN 30, creatinine 1.3, estimated GFR was 40 mL per minute. Her glucose was 104, lactic acid was 1.6, calcium was 8.5. Total bilirubin, AST, ALT were slightly elevated. Alkaline phosphatase was normal. Her lactate dehydrogenase was 541. Total protein was 5.9, albumin was 3.3. Her SARS COVID antigen test was negative. She was seen by the Surgical team as well as the rotary engine assembler. Had had a HIDA scan done, which showed a gallbladder filled with activity indicating cystic duct patency and the Surgical team did not recommend any surgical intervention. She was seen by Dr. Jae Lainez, who basically given the size of the mass and ascites, very likely an ovarian carcinoma, and he recommended that she should be referred to rotary engine assembler oncologist for evaluation to determine if she is a candidate for surgery or chemotherapy. She was seen also by the Gastroenterology team and for her impaired liver enzymes, they recommended Cardiology consult. As there is no need for any surgical intervention, I basically will advance her diet as tolerated. I am somewhat concerned about the fact that she has also lactic acidosis and elevated lactic acid, which sometimes indicates bowel ischemia, although the patient seems to be asymptomatic as far as her abdomen is concerned today. I will repeat her labs today and decide the further management accordingly. HAIR SMITH MD DR: SALOMON/richy JOB#: [id number] / [id number]
--- NOTE | 2020-07-01 12:57 | PDOC ---
CARDIO Progress Notes Date and Time Date of Service 07/01/2020 Time of Evaluation 1100 Subjective Subjective: No Chest Pain, No shortness of breath, No Palpitations Vitals Vitals Vital Signs Date Time Temp Pulse Resp B/P (MAP) Pulse Ox O2 Delivery O2 Flow Rate FiO2 07/01/20 11:00 99.3 107 18 185/105 (131) 92 Room Air 99.3 Weight Weight [ ] Input and Output Intake and Output Intake and Output 07/01/20 07:00 Intake Total 1400 ml Output Total 300 ml Balance 1100 ml Intake Oral 0 ml IV Total 1400 ml Output Urine Total 300 ml # Voids 1 Laboratory Labs Laboratory Tests Test 06/30/20 14:30 06/30/20 15:32 07/01/20 10:45 07/01/20 11:10 White Blood Count 11.8 x10^3/uL (4.0-11.0) 7.5 x10^3/uL (4.0-11.0) Red Blood Count 3.72 x10^6/uL (3.50-5.40) 3.34 x10^6/uL (3.50-5.40) Hemoglobin 11.2 g/dL (12.0-15.5) 10.2 g/dL (12.0-15.5) Hematocrit 34.3 % (36.0-47.0) 31.0 % (36.0-47.0) Mean Corpuscular Volume 92 fL (79-100) 93 fL (79-100) Mean Corpuscular Hemoglobin 30 pg (25-35) 31 pg (25-35) Mean Corpuscular Hemoglobin Concent 33 g/dL (31-37) 33 g/dL (31-37) Red Cell Distribution Width 19.9 % (11.5-14.5) 19.3 % (11.5-14.5) Platelet Count 329 x10^3/uL (140-400) 202 x10^3/uL (140-400) Neutrophils (%) (Auto) 91 % (31-73) Lymphocytes (%) (Auto) 7 % (24-48) Monocytes (%) (Auto) 2 % (0-9) Eosinophils (%) (Auto) 0 % (0-3) Basophils (%) (Auto) 0 % (0-3) Neutrophils # (Auto) 10.7 x10^3/uL (1.8-7.7) Lymphocytes # (Auto) 0.8 x10^3/uL (1.0-4.8) Monocytes # (Auto) 0.2 x10^3/uL (0.0-1.1) Eosinophils # (Auto) 0.0 x10^3/uL (0.0-0.7) Basophils # (Auto) 0.0 x10^3/uL (0.0-0.2) Segmented Neutrophils % 88 % (35-66) Lymphocytes % 9 % (24-48) Monocytes % 3 % (0-10) Platelet Estimate Adequate (ADEQUATE) Polychromasia Slight Poikilocytosis Slight Anisocytosis Slight Tear Drop Cells Occ Ovalocytes Few Sodium Level 139 mmol/L (136-145) 137 mmol/L (136-145) Potassium Level 4.3 mmol/L (3.5-5.1) 3.1 mmol/L (3.5-5.1) Chloride Level 104 mmol/L (98-107) 102 mmol/L (98-107) Carbon Dioxide Level 25 mmol/L (21-32) 24 mmol/L (21-32) Anion Gap 10 (6-14) 11 (6-14) Blood Urea Nitrogen 30 mg/dL (7-20) 19 mg/dL (7-20) Creatinine 1.3 mg/dL (0.6-1.0) 1.1 mg/dL (0.6-1.0) Estimated GFR (Cockcroft-Gault) 39.9 48.4 BUN/Creatinine Ratio 23 (6-20) 17 (6-20) Glucose Level 104 mg/dL (70-99) 133 mg/dL (70-99) Lactic Acid Level 1.6 mmol/L (0.4-2.0) 1.5 mmol/L (0.4-2.0) Calcium Level 8.5 mg/dL (8.5-10.1) 8.3 mg/dL (8.5-10.1) Total Bilirubin 1.4 mg/dL (0.2-1.0) 1.1 mg/dL (0.2-1.0) Aspartate Amino Transf (AST/SGOT) 195 U/L (15-37) 217 U/L (15-37) Alanine Aminotransferase (ALT/SGPT) 78 U/L (14-59) 113 U/L (14-59) Alkaline Phosphatase 71 U/L (46-116) 67 U/L (46-116) Lactate Dehydrogenase 541 U/L (81-234) Total Protein 5.9 g/dL (6.4-8.2) 5.4 g/dL (6.4-8.2) Albumin 3.3 g/dL (3.4-5.0) 3.1 g/dL (3.4-5.0) Albumin/Globulin Ratio 1.3 (1.0-1.7) 1.3 (1.0-1.7) Lipase 104 U/L (73-393) SARS-CoV-2 Antigen (Rapid) Negative (NEGATIVE) Physical Exam HEENT: Neck Supple W Full Motion Chest: Symmetric LUNGS: Other (diminished bases) Heart: irregularly irregular (AFIB rate controlled) Abdomen: Other (soft) Extremities: No Edema, No Calf Tenderness Neurology: alert, oriented, follow commands Assessment Assessment 1. PAFIB with RVR; rate better controlled with metoprolol 2. Chronic probable diastolic CHF; compensated 3. Severe lactic acidosis with leukocytosis: much improved. Differentials include liver disease, sepsis, renal insufficiency and malignancy 4. SHASHANK on CKD, hyperkalemia 5. Hypertension; labile 6. CAD s/p PCI/stents; primary psychology lecturer, Dr. Pederson at [facility] clinically stable 7. Hyperlipidemia; statin 8. Hypothyroidism; TSH 24. as per IM 9. Abnormal uterine bleeding: CT with possible ovarian CA 9. Abd US with cholelithiasis 10.. Metabolic encephaolpathy: mentation improved Recommendations 1. Continue metopolol for rate control. Continue BP regimen. Will add norvasc if BP remains labile Labetolol IV PRN. Replace K 2. Hold eliquis for now for potential biopsy. Continue ASA 3. Continue current secondary prevention measures. 4. Supportive care Justicifation of Admission Dx: Justifications for Admission: Justification of Admission Dx: Yes MORRIS DAILEY HEAD WAITRESS Jul 01, 2020 12:57
[2020-07-01] MEDS: hydroCHLOROthiazide 12.5 MG CAPSULE PO SCH (13:17)
[2020-07-01] MEDS ORDERED: POTASSIUM CHLORIDE 20 MEQ TABLET.ER. PO ONE ×2 (16:15→19:00)
[2020-07-01] MEDS ORDERED: amLODIPine BESYLATE 5 MG TABLET PO ONE (17:00)
[2020-07-01] MEDS: POTASSIUM CHLORIDE 10 MEQ TABLET.ER. PO SCH (18:03)
[2020-07-01] MEDS ORDERED: SIMVASTATIN 40 MG TABLET. PO SCH (21:00)
[2020-07-02] VITALS (7 sets, daily range): BP systolic 132–169; BP diastolic 75–113
[2020-07-02] MEDS: PIPERACILLIN/TAZOBACTAM 2.25 GM in IV NORMAL SALINE 50ML 50 ML IV SCH ×3 (05:11→17:51)
[2020-07-02] MEDS: LABETALOL 20 MG/4 ML DISP.SYRIN. IVP PRN (05:11)
[2020-07-02] MEDS: IV NORMAL SALINE 1000ML BAG 1,000 ML IV SCH ×2 (05:12→20:27)
[2020-07-02] MEDS: PANTOPRAZOLE 40 MG TABLET.DR. PO SCH (05:12)
[2020-07-02] MEDS: LEVOTHYROXINE 50 MCG TABLET PO SCH (05:12)
[2020-07-02] MEDS ORDERED: amLODIPine BESYLATE 5 MG TABLET PO SCH (09:00)
[2020-07-02] MEDS: POLYETHYLENE GLYCOL 3350 17 GM PACKET. PO SCH (09:00)
[2020-07-02] MEDS ORDERED: ISOSORBIDE MONONITRATE ER 30 MG TAB.ER.24H PO SCH (09:00)
--- NOTE | 2020-07-02 10:18 | PN ---
DATE: 07/02/2020 SUBJECTIVE: The patient is resting, slightly propped up in bed, in no apparent respiratory distress. She is awake, alert. On questioning her, denied any complaint, in particular denied any nausea or vomiting. Denied any abdominal pain. Nursing staff did not voice any concern. PHYSICAL EXAMINATION: GENERAL: When I examined her, she looked pale, no jaundice, cyanosis or thyromegaly. No jugular venous distention. No lower limb edema. VITAL SIGNS: Her heart rate was 77, blood pressure was 167/109, temperature was 97.9, respiratory rate was 18 and oxygen saturation was 95%. HEENT: Showed normocephalic, atraumatic. NECK: Supple. CARDIAC: Normal first and second heart sounds. No gallop, rub or murmur. CHEST: Clear to auscultation. No crepitation or rhonchi. ABDOMEN: Distended, soft, nontender. I could not really appreciate any guarding or rigidity. No organomegaly. All hernial orifice intact. Bowel sounds normal. NEUROLOGIC: She is grossly intact. Her intake was 1400, output was 300. LABORATORY DATA: This morning labs are still pending at the time of this dictation. As of yesterday, her white cell count was 7500, hemoglobin 10, hematocrit 31, MCV 93, and platelet count 202,000. Serum sodium was 137, potassium 3.1, chloride 102, bicarbonate 24, anion gap of 11, BUN 19, creatinine 1.1, estimated GFR was 48 mL per minute. Her glucose 133, calcium was 8.3. Total bilirubin, AST and ALT elevated. Alkaline phosphatase was normal. Total protein was 5.4, albumin was 3.1. Her coronavirus by PCR was negative. Her HIDA scan done yesterday showed a gallbladder filled with activity, indicating cystic duct patency. The surgical team did not feel that she has any evidence of acute cholecystitis, did not require any surgical intervention. Her cultures done at [facility], unfortunately, she has no blood cultures done; however, her procalcitonin was less than 0.10. However, her white cell count was elevated at 17,200. PLAN: My plan is to continue with IV antibiotic in the form of piperacillin, tazobactam as well as linezolid. I will continue with IV fluid. I would consult Dr. Claros for antibiotic management. HAIR SMITH MD DR: SALOMON/richy JOB#: [id number] / [id number]
[2020-07-02] MEDS: hydroCHLOROthiazide 12.5 MG CAPSULE PO SCH (10:26)
[2020-07-02] MEDS: LOSARTAN POTASSIUM 50 MG TABLET. PO SCH (10:27)
[2020-07-02] MEDS: POTASSIUM CHLORIDE 10 MEQ TABLET.ER. PO SCH ×2 (10:27→17:50)
[2020-07-02] MEDS: METOPROLOL TART IMMED RELEASE 50 MG TABLET. PO SCH (10:27)
[2020-07-02] MEDS: ISOSORBIDE MONONITRATE ER 30 MG TAB.ER.24H PO SCH (10:28)
[2020-07-02] MEDS: CITALOPRAM 20 MG TABLET. PO SCH (10:28)
[2020-07-02 10:29] LABS: BASO # 0.1 x10^3/uL (0.0-0.2); BASO % 1 % (0-3); EOS # 0.2 x10^3/uL (0.0-0.7); EOS % 3 % (0-3); HEMATOCRIT 32.8 % (36.0-47.0); HEMOGLOBIN 10.9 g/dL (12.0-15.5); LYMPH # 0.8 x10^3/uL (1.0-4.8); LYMPH % 11 % (24-48); MEAN CORPUSCULAR HEMOGLOBIN 31 pg (25-35); MEAN CORPUSCULAR HGB CONC 33 g/dL (31-37); MEAN CORPUSCULAR VOLUME 92 fL (79-100); MONO # 0.2 x10^3/uL (0.0-1.1); MONO % 2 % (0-9); NEUT # 6.3 x10^3/uL (1.8-7.7); NEUT % 83 % (31-73); PLATELET COUNT 183 x10^3/uL (140-400); RED BLOOD COUNT 3.55 x10^6/uL (3.50-5.40); RED CELL DISTRIBUTION WIDTH 20.4 % (11.5-14.5); WHITE BLOOD COUNT 7.5 x10^3/uL (4.0-11.0)
[2020-07-02] MEDS: ASPIRIN ENTERIC COATED 81 MG TABLET.DR. PO SCH (10:29)
[2020-07-02 10:41] LABS: ALBUMIN/GLOBULIN RATIO 1.3 (1.0-1.7); GFR 54.1; POTASSIUM 3.6 mmol/L (3.5-5.1); TOTAL BILIRUBIN 0.9 mg/dL (0.2-1.0); TOTAL PROTEIN 5.4 g/dL (6.4-8.2)
--- NOTE | 2020-07-02 10:58 | PDOC ---
PROGRESS NOTES Date of Service DATE: 07/02/20 TIME: 10:57 Subjective Subjective appears well, denies abdominal pain Objective Objective Vital Signs Date Time Temp Pulse Resp B/P (MAP) Pulse Ox O2 Delivery O2 Flow Rate FiO2 07/02/20 10:28 77 167/109 07/02/20 07:00 97.9 18 95 Room Air 97.9 Intake and Output 07/02/20 07:00 Intake Total 322 ml Balance 322 ml Intake Oral 322 ml # Voids 6 # Bowel Movements 3 Physical Exam Abdomen: Soft, No tenderness Heart: Regular rate, Normal S2 Extremities: No clubbing General: Alert, Oriented X3 HEENT: Atraumatic Neuro: Normal gait Psych/Mental Status: Mental status NL Assessment Assessment Ovarian tumor Plan Plan of Care HIDA scan showed no cystic duct obstruction; WEATHERIZATION COORDINATOR input noted; no new surgical recs; we will sign off, please call if needed in the future Comment Review of Relevant I have reviewed the following items reginald (where applicable) has been applied. Labs Laboratory Tests Test 06/30/20 14:30 06/30/20 15:32 06/30/20 15:35 07/01/20 10:45 White Blood Count 11.8 x10^3/uL (4.0-11.0) 7.5 x10^3/uL (4.0-11.0) Red Blood Count 3.72 x10^6/uL (3.50-5.40) 3.34 x10^6/uL (3.50-5.40) Hemoglobin 11.2 g/dL (12.0-15.5) 10.2 g/dL (12.0-15.5) Hematocrit 34.3 % (36.0-47.0) 31.0 % (36.0-47.0) Mean Corpuscular Volume 92 fL (79-100) 93 fL (79-100) Mean Corpuscular Hemoglobin 30 pg (25-35) 31 pg (25-35) Mean Corpuscular Hemoglobin Concent 33 g/dL (31-37) 33 g/dL (31-37) Red Cell Distribution Width 19.9 % (11.5-14.5) 19.3 % (11.5-14.5) Platelet Count 329 x10^3/uL (140-400) 202 x10^3/uL (140-400) Neutrophils (%) (Auto) 91 % (31-73) Lymphocytes (%) (Auto) 7 % (24-48) Monocytes (%) (Auto) 2 % (0-9) Eosinophils (%) (Auto) 0 % (0-3) Basophils (%) (Auto) 0 % (0-3) Neutrophils # (Auto) 10.7 x10^3/uL (1.8-7.7) Lymphocytes # (Auto) 0.8 x10^3/uL (1.0-4.8) Monocytes # (Auto) 0.2 x10^3/uL (0.0-1.1) Eosinophils # (Auto) 0.0 x10^3/uL (0.0-0.7) Basophils # (Auto) 0.0 x10^3/uL (0.0-0.2) Segmented Neutrophils % 88 % (35-66) Lymphocytes % 9 % (24-48) Monocytes % 3 % (0-10) Platelet Estimate Adequate (ADEQUATE) Polychromasia Slight Poikilocytosis Slight Anisocytosis Slight Tear Drop Cells Occ Ovalocytes Few Sodium Level 139 mmol/L (136-145) 137 mmol/L (136-145) Potassium Level 4.3 mmol/L (3.5-5.1) 3.1 mmol/L (3.5-5.1) Chloride Level 104 mmol/L (98-107) 102 mmol/L (98-107) Carbon Dioxide Level 25 mmol/L (21-32) 24 mmol/L (21-32) Anion Gap 10 (6-14) 11 (6-14) Blood Urea Nitrogen 30 mg/dL (7-20) 19 mg/dL (7-20) Creatinine 1.3 mg/dL (0.6-1.0) 1.1 mg/dL (0.6-1.0) Estimated GFR (Cockcroft-Gault) 39.9 48.4 BUN/Creatinine Ratio 23 (6-20) 17 (6-20) Glucose Level 104 mg/dL (70-99) 133 mg/dL (70-99) Lactic Acid Level 1.6 mmol/L (0.4-2.0) Calcium Level 8.5 mg/dL (8.5-10.1) 8.3 mg/dL (8.5-10.1) Total Bilirubin 1.4 mg/dL (0.2-1.0) 1.1 mg/dL (0.2-1.0) Aspartate Amino Transf (AST/SGOT) 195 U/L (15-37) 217 U/L (15-37) Alanine Aminotransferase (ALT/SGPT) 78 U/L (14-59) 113 U/L (14-59) Alkaline Phosphatase 71 U/L (46-116) 67 U/L (46-116) Lactate Dehydrogenase 541 U/L (81-234) Total Protein 5.9 g/dL (6.4-8.2) 5.4 g/dL (6.4-8.2) Albumin 3.3 g/dL (3.4-5.0) 3.1 g/dL (3.4-5.0) Albumin/Globulin Ratio 1.3 (1.0-1.7) 1.3 (1.0-1.7) Lipase 104 U/L (73-393) SARS-CoV-2 Antigen (Rapid) Negative (NEGATIVE) Coronavirus (COVID-19)(PCR) Negative (NEGATIVE) Test 07/01/20 11:10 07/02/20 09:40 Lactic Acid Level 1.5 mmol/L (0.4-2.0) White Blood Count 7.5 x10^3/uL (4.0-11.0) Red Blood Count 3.55 x10^6/uL (3.50-5.40) Hemoglobin 10.9 g/dL (12.0-15.5) Hematocrit 32.8 % (36.0-47.0) Mean Corpuscular Volume 92 fL (79-100) Mean Corpuscular Hemoglobin 31 pg (25-35) Mean Corpuscular Hemoglobin Concent 33 g/dL (31-37) Red Cell Distribution Width 20.4 % (11.5-14.5) Platelet Count 183 x10^3/uL (140-400) Neutrophils (%) (Auto) 83 % (31-73) Lymphocytes (%) (Auto) 11 % (24-48) Monocytes (%) (Auto) 2 % (0-9) Eosinophils (%) (Auto) 3 % (0-3) Basophils (%) (Auto) 1 % (0-3) Neutrophils # (Auto) 6.3 x10^3/uL (1.8-7.7) Lymphocytes # (Auto) 0.8 x10^3/uL (1.0-4.8) Monocytes # (Auto) 0.2 x10^3/uL (0.0-1.1) Eosinophils # (Auto) 0.2 x10^3/uL (0.0-0.7) Basophils # (Auto) 0.1 x10^3/uL (0.0-0.2) Sodium Level 140 mmol/L (136-145) Potassium Level 3.6 mmol/L (3.5-5.1) Chloride Level 105 mmol/L (98-107) Carbon Dioxide Level 25 mmol/L (21-32) Anion Gap 10 (6-14) Blood Urea Nitrogen 14 mg/dL (7-20) Creatinine 1.0 mg/dL (0.6-1.0) Estimated GFR (Cockcroft-Gault) 54.1 BUN/Creatinine Ratio 14 (6-20) Glucose Level 94 mg/dL (70-99) Calcium Level 8.0 mg/dL (8.5-10.1) Total Bilirubin 0.9 mg/dL (0.2-1.0) Aspartate Amino Transf (AST/SGOT) 87 U/L (15-37) Alanine Aminotransferase (ALT/SGPT) 73 U/L (14-59) Alkaline Phosphatase 72 U/L (46-116) Lactate Dehydrogenase 288 U/L (81-234) Total Protein 5.4 g/dL (6.4-8.2) Albumin 3.0 g/dL (3.4-5.0) Albumin/Globulin Ratio 1.3 (1.0-1.7) Laboratory Tests Test 07/01/20 11:10 07/02/20 09:40 Lactic Acid Level 1.5 mmol/L (0.4-2.0) White Blood Count 7.5 x10^3/uL (4.0-11.0) Red Blood Count 3.55 x10^6/uL (3.50-5.40) Hemoglobin 10.9 g/dL (12.0-15.5) Hematocrit 32.8 % (36.0-47.0) Mean Corpuscular Volume 92 fL (79-100) Mean Corpuscular Hemoglobin 31 pg (25-35) Mean Corpuscular Hemoglobin Concent 33 g/dL (31-37) Red Cell Distribution Width 20.4 % (11.5-14.5) Platelet Count 183 x10^3/uL (140-400) Neutrophils (%) (Auto) 83 % (31-73) Lymphocytes (%) (Auto) 11 % (24-48) Monocytes (%) (Auto) 2 % (0-9) Eosinophils (%) (Auto) 3 % (0-3) Basophils (%) (Auto) 1 % (0-3) Neutrophils # (Auto) 6.3 x10^3/uL (1.8-7.7) Lymphocytes # (Auto) 0.8 x10^3/uL (1.0-4.8) Monocytes # (Auto) 0.2 x10^3/uL (0.0-1.1) Eosinophils # (Auto) 0.2 x10^3/uL (0.0-0.7) Basophils # (Auto) 0.1 x10^3/uL (0.0-0.2) Sodium Level 140 mmol/L (136-145) Potassium Level 3.6 mmol/L (3.5-5.1) Chloride Level 105 mmol/L (98-107) Carbon Dioxide Level 25 mmol/L (21-32) Anion Gap 10 (6-14) Blood Urea Nitrogen 14 mg/dL (7-20) Creatinine 1.0 mg/dL (0.6-1.0) Estimated GFR (Cockcroft-Gault) 54.1 BUN/Creatinine Ratio 14 (6-20) Glucose Level 94 mg/dL (70-99) Calcium Level 8.0 mg/dL (8.5-10.1) Total Bilirubin 0.9 mg/dL (0.2-1.0) Aspartate Amino Transf (AST/SGOT) 87 U/L (15-37) Alanine Aminotransferase (ALT/SGPT) 73 U/L (14-59) Alkaline Phosphatase 72 U/L (46-116) Lactate Dehydrogenase 288 U/L (81-234) Total Protein 5.4 g/dL (6.4-8.2) Albumin 3.0 g/dL (3.4-5.0) Albumin/Globulin Ratio 1.3 (1.0-1.7) Medications Current Medications Sodium Chloride 1,000 ml @ 75 mls/hr [id number] IV Last administered on 07/02/20at 05:12; Start 06/30/20 at 14:00 Hydromorphone HCl (Dilaudid) 1 mg PRN Q4HRS PRN IVP PAIN; Start 06/30/20 at 14:00 Ondansetron HCl (Zofran) 4 mg PRN Q4HRS PRN IVP NAUSEA/VOMITING; Start 06/30/20 at 14:00 Piperacillin Sod/ Tazobactam Sod 2.25 gm/Sodium Chloride 50 ml @ 100 mls/hr Q6HRS IV Last administered on 07/02/20at 05:11; Start 06/30/20 at 14:00 Linezolid/Dextrose 300 ml @ 300 mls/hr Q12HR IV Last administered on 07/02/20at 10:28; Start 06/30/20 at 21:00 Pantoprazole Sodium (Protonix) 40 mg DAILYAC PO Last administered on 07/02/20 05:12; Start 07/01/20 at 07:30 Polyethylene Glycol (miraLAX PACKET) 17 gm DAILY PO Last administered on 07/01/20at 10:50; Start 07/01/20 at 09:00 Info (FLU VACCINE SCREEN per RX) 1 each 1X ONCE MC Last administered on 06/30/20at 19:00; Start 06/30/20 at 18:45; Stop 06/30/20 at 18:46; Status DC Influenza Virus Vaccine Quadrival (Fluzone Quad Syringe) 0.5 ml ONCE ONCE VAX IM Last administered on 07/01/20at 13:18; Start 06/30/20 at 18:45; Stop 06/30/20 at 18:46; Status DC Acetaminophen (Tylenol) 650 mg PRN Q4HRS PRN PO MILD PAIN / TEMP > 100.3'F Last administered on 07/01/20at 10:48; Start 07/01/20 at 10:15 Aspirin (Ecotrin) 81 mg DAILY PO Last administered on 07/02/20at 10:29; Start 07/02/20 at 09:00 Cetirizine HCl (ZyrTEC) 10 mg PRN DAILY PRN PO ALLERGIES; Start 07/01/20 at 10:15 Isosorbide Mononitrate (Imdur) 30 mg DAILY PO ; Start 07/02/20 at 09:00; Stop 07/01/20 at 16:59; Status DC Levothyroxine Sodium (Synthroid) 250 mcg DAILY06 PO ; Start 07/01/20 at 10:30; Stop 07/01/20 at 10:15; Status DC Potassium Chloride (Klor-Con) 20 meq BIDWMEALS PO Last administered on 07/02/20at 10:27; Start 07/01/20 at 17:00 Simvastatin (Zocor) 40 mg QHS PO Last administered on 07/01/20at 20:59; Start 07/01/20 at 21:00 Citalopram Hydrobromide (CeleXA) 40 mg DAILY PO Last administered on 07/02/20at 10:28; Start 07/01/20 at 11:00 Hydrochlorothiazide (Microzide) 12.5 mg DAILY PO Last administered on 07/02/20at 10:26; Start 07/01/20 at 11:00 Losartan Potassium (Cozaar) 100 mg DAILY PO Last administered on 07/02/20at 10:27; Start 07/01/20 at 11:00 Metoprolol Tartrate (Lopressor) 50 mg BID PO Last administered on 07/02/20at 10:27; Start 07/01/20 at 11:00 Zolpidem Tartrate (Ambien) 5 mg PRN QHS PRN PO INSOMNIA; Start 07/01/20 at 10:15 Levothyroxine Sodium (Synthroid) 50 mcg DAILY06 PO Last administered on 09/01/19at 05:12; Start 07/01/20 at 10:30 Potassium Chloride (Klor-Con) 40 meq 1X ONCE PO Last administered on 07/01/20at 16:26; Start 07/01/20 at 16:15; Stop 07/01/20 at 16:16; Status DC Potassium Chloride (Klor-Con) 40 meq 1X ONCE PO Last administered on 07/01/20at 20:59; Start 07/01/20 at 19:00; Stop 07/01/20 at 19:11; Status DC Labetalol HCl (Normodyne Iv Push) 20 mg PRN Q2HR PRN IVP HYPERTENSION Last administered on 07/02/20at 05:11; Start 07/01/20 at 17:00 Amlodipine Besylate (Norvasc) 5 mg 1X ONCE PO ; Start 07/01/20 at 17:00; Stop 07/01/20 at 17:01; Status UNV Amlodipine Besylate (Norvasc) 5 mg DAILY PO ; Start 07/02/20 at 09:00; Status UNV Isosorbide Mononitrate (Imdur) 30 mg DAILY PO Last administered on 07/02/20at 10:28; Start 07/02/20 at 09:00 Active Scripts Active Levothyroxine Sodium 50 Mcg Tablet 50 Tab PO DAILY Reported Isosorbide Mononitrate Er (Isosorbide Mononitrate) 30 Mg Tab.er.24h 1 Tab PO DAILY Hydrochlorothiazide Tablet (Hydrochlorothiazide) 12.5 Mg Tablet 1 Tab PO DAILY Losartan Potassium 100 Mg Tablet 1 Tab PO DAILY Citalopram Hbr (Citalopram Hydrobromide) 40 Mg Tablet 1 Tab PO HS Simvastatin 40 Mg Tablet 1 Tab PO QHS Aspir 81 (Aspirin) 81 Mg Tablet.dr 1 Tab PO DAILY Potassium Chloride 10 Meq Capsule.er 20 Meq PO BIDWMEALS Zolpidem Tartrate 10 Mg Tablet 10 Mg PO PRN QHS PRN Cetirizine Hcl 10 Mg Tablet 1 Tab PO PRN DAILY PRN Bystolic (Nebivolol Hcl) 20 Mg Tablet 1 Tab PO DAILY Vitals/I & O Vital Sign - Last 24 Hours 07/01/20 07/01/20 07/01/20 07/01/20 11:00 13:18 15:00 16:59 Temp 99.3 98.5 99.3 98.5 Pulse 107 91 92 83 Resp 18 18 18 B/P (MAP) 185/105 (131) 158/87 (110) 188/96 (126) 168/107 (127) Pulse Ox 92 92 98 O2 Delivery Room Air Room Air Room Air 07/01/20 07/01/20 07/01/20 07/01/20 19:00 20:00 20:59 23:00 Temp 97.9 97.5 97.9 97.5 Pulse 68 83 86 Resp 18 18 B/P (MAP) 152/96 (114) 168/107 161/89 (113) Pulse Ox 96 95 O2 Delivery Room Air Room Air Room Air 07/02/20 07/02/20 07/02/20 07/02/20 03:10 05:11 07:00 10:27 Temp 97.8 97.9 97.8 97.9 Pulse 77 77 77 77 Resp 18 18 B/P (MAP) 153/101 (118) 153/101 167/109 (128) 167/109 Pulse Ox 95 95 O2 Delivery Room Air Room Air 07/02/20 07/02/20 10:27 10:28 Pulse 77 77 B/P (MAP) 167/109 167/109 Intake and Output 07/01/20 07/01/20 07/02/20 15:00 23:00 07:00 Intake Total 120 ml 202 ml Balance 120 ml 202 ml Justifications for Admission Other Justification ANCA MORALES MD Jul 02, 2020 10:58
--- NOTE | 2020-07-02 12:05 | PDOC ---
ROLL UP MACHINE OPERATOR PROGRESS NOTE Date of Service: DATE: 07/02/20 TIME: 12:04 Subjective: Pt is doing well. Discussed findings with the pt. Explained that based on the information gathered so far it is highly likely that this ovarian mass is CA. Also Discussed how it may have been present for some time. The pt stated the other day that she was noted to have a uterine mass found at . With no uterine mass seen on imaging here it is likely that she had that they were taking about this same ovarian mass. The pt states that Dr. Palacios at told h er that it was no likely CA. It is likely that either these were to separate findings or possibly the findings at the time (like tumor markers) were not consistent with CA. Objective: Vital Signs: Vital Signs Date Time Temp Pulse Resp B/P (MAP) Pulse Ox O2 Delivery O2 Flow Rate FiO2 07/01/20 07:00 98.9 105 18 189/100 (129) 94 Room Air 98.9 Vital Signs Date Time Temp Pulse Resp B/P (MAP) Pulse Ox O2 Delivery O2 Flow Rate FiO2 07/02/20 11:31 97.8 74 18 162/96 (118) 97 Room Air 97.8 Labs: Laboratory Tests Test 07/02/20 09:40 White Blood Count 7.5 x10^3/uL (4.0-11.0) Red Blood Count 3.55 x10^6/uL (3.50-5.40) Hemoglobin 10.9 g/dL (12.0-15.5) L Hematocrit 32.8 % (36.0-47.0) L Mean Corpuscular Volume 92 fL (79-100) Mean Corpuscular Hemoglobin 31 pg (25-35) Mean Corpuscular Hemoglobin Concent 33 g/dL (31-37) Red Cell Distribution Width 20.4 % (11.5-14.5) H Platelet Count 183 x10^3/uL (140-400) Neutrophils (%) (Auto) 83 % (31-73) H Lymphocytes (%) (Auto) 11 % (24-48) L Monocytes (%) (Auto) 2 % (0-9) Eosinophils (%) (Auto) 3 % (0-3) Basophils (%) (Auto) 1 % (0-3) Neutrophils # (Auto) 6.3 x10^3/uL (1.8-7.7) Lymphocytes # (Auto) 0.8 x10^3/uL (1.0-4.8) L Monocytes # (Auto) 0.2 x10^3/uL (0.0-1.1) Eosinophils # (Auto) 0.2 x10^3/uL (0.0-0.7) Basophils # (Auto) 0.1 x10^3/uL (0.0-0.2) Sodium Level 140 mmol/L (136-145) Potassium Level 3.6 mmol/L (3.5-5.1) Chloride Level 105 mmol/L (98-107) Carbon Dioxide Level 25 mmol/L (21-32) Anion Gap 10 (6-14) Blood Urea Nitrogen 14 mg/dL (7-20) Creatinine 1.0 mg/dL (0.6-1.0) Estimated GFR (Cockcroft-Gault) 54.1 BUN/Creatinine Ratio 14 (6-20) Glucose Level 94 mg/dL (70-99) Calcium Level 8.0 mg/dL (8.5-10.1) L Total Bilirubin 0.9 mg/dL (0.2-1.0) Aspartate Amino Transferase (AST) 87 U/L (15-37) H Alanine Aminotransferase (ALT) 73 U/L (14-59) H Alkaline Phosphatase 72 U/L (46-116) Lactate Dehydrogenase 288 U/L (81-234) H Total Protein 5.4 g/dL (6.4-8.2) L Albumin 3.0 g/dL (3.4-5.0) L Albumin/Globulin Ratio 1.3 (1.0-1.7) Laboratory Tests 07/02/20 09:40 Laboratory Tests 07/02/20 09:40 Laboratory Tests 07/02/20 09:40 Physical Exam: GENERAL: No apparent distress. Alert and oriented. HEENT: Head normocephalic, atraumatic. NECK: Supple LUNGS: Clear to auscultation. HEART: RRR, S1, S2 present, pulses intact ABDOMEN: Soft, positive bowel sounds. EXTREMITIES: No cyanosis or edema. NEUROLOGIC: Normal speech, normal tone PSYCHIATRIC: Normal affect, normal mood. SKIN: No ulceration. Assessment & Plan: A/P 75y who admitted for CP and SOA 1.) Ovarian mass likely CA. Needs eval by GynOnc. Sounds like may have had previous w/u by [facility]. To be determined by the primary team if this eval should be inpt transfer or on an outpt basis. Inpt transfer may expedite tx of this ovarian CA. If pt prefers another GynOnc outside of , Dr. Hanna Lovelace with [facility] would be an excellent choice. 2.) PMB previously w/u, may be were mass was first noted Chest pain, SOA cardiology consulted, Chronic probable diastolic CHF; appears compensated 3.) A Fib, h/o CAD cardiology consulted, s/p PCI/stents 4.) Poor visualization of the GB w/ fluid and edema, mild splenomegaly, mild ascites, cystic along with the ovarian findings HIDA scan showed no cystic duct obstruction 5.) Sepsis - On piperacillin, tazobactam and linezolid. ID consulted 6.) Depression 7.) Rapid Covid neg 8.) SHASHANK on CKD, hyperkalemia 9.) Hypertension; controlled 10.) Hypothyroidism 11.) Encephalopathy vs dementia SONNY MORALES MD Jul 02, 2020 12:04
--- NOTE | 2020-07-02 13:52 | PDOC ---
PROGRESS NOTES Date of Service: DATE: 07/02/20 TIME: 13:50 Subjective Subjective Denied any chest pain or shortness of breath Objective Objective Vital Signs Date Time Temp Pulse Resp B/P (MAP) Pulse Ox O2 Delivery O2 Flow Rate FiO2 07/02/20 11:31 97.8 74 18 162/96 (118) 97 Room Air 97.8 Intake and Output 07/02/20 07:00 Intake Total 322 ml Balance 322 ml Intake Oral 322 ml # Voids 6 # Bowel Movements 3 Physical Exam Abdomen: Normal bowel sounds Heart: Regular rate, Normal S2 Extremities: No clubbing General: Alert, Oriented X3 HEENT: Atraumatic Lungs: Clear to auscultation, Normal air movement Neuro: Normal gait Psych/Mental Status: Mental status NL Skin: No rashes, No breakdown Assessment Assessment 1. PAFIB with RVR; rate better controlled with metoprolol 2. Chronic probable diastolic CHF; compensated 3. Severe lactic acidosis with leukocytosis: much improved. Differentials include liver disease, sepsis, renal insufficiency and malignancy 4. SHASHANK on CKD, hyperkalemia : Improved 5. Hypertension; labile. Stop hydrochlorothiazide. Change metoprolol to labetalol for better control. 6. 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 Hyperlipidemia; statin 8. Hypothyroidism; TSH 24. as per IM 9. Abnormal uterine bleeding: CT with possible ovarian CA. FORMING ACID DUMPER following 9. Abd US with cholelithiasis: No plans for surgery per general surgery team 10.. Metabolic encephaolpathy: mentation improved Comment Review of Relevant I have reviewed the following items reginald (where applicable) has been applied. Labs Laboratory Tests Test 07/02/20 09:40 White Blood Count 7.5 x10^3/uL (4.0-11.0) Red Blood Count 3.55 x10^6/uL (3.50-5.40) Hemoglobin 10.9 g/dL (12.0-15.5) Hematocrit 32.8 % (36.0-47.0) Mean Corpuscular Volume 92 fL (79-100) Mean Corpuscular Hemoglobin 31 pg (25-35) Mean Corpuscular Hemoglobin Concent 33 g/dL (31-37) Red Cell Distribution Width 20.4 % (11.5-14.5) Platelet Count 183 x10^3/uL (140-400) Neutrophils (%) (Auto) 83 % (31-73) Lymphocytes (%) (Auto) 11 % (24-48) Monocytes (%) (Auto) 2 % (0-9) Eosinophils (%) (Auto) 3 % (0-3) Basophils (%) (Auto) 1 % (0-3) Neutrophils # (Auto) 6.3 x10^3/uL (1.8-7.7) Lymphocytes # (Auto) 0.8 x10^3/uL (1.0-4.8) Monocytes # (Auto) 0.2 x10^3/uL (0.0-1.1) Eosinophils # (Auto) 0.2 x10^3/uL (0.0-0.7) Basophils # (Auto) 0.1 x10^3/uL (0.0-0.2) Sodium Level 140 mmol/L (136-145) Potassium Level 3.6 mmol/L (3.5-5.1) Chloride Level 105 mmol/L (98-107) Carbon Dioxide Level 25 mmol/L (21-32) Anion Gap 10 (6-14) Blood Urea Nitrogen 14 mg/dL (7-20) Creatinine 1.0 mg/dL (0.6-1.0) Estimated GFR (Cockcroft-Gault) 54.1 BUN/Creatinine Ratio 14 (6-20) Glucose Level 94 mg/dL (70-99) Calcium Level 8.0 mg/dL (8.5-10.1) Total Bilirubin 0.9 mg/dL (0.2-1.0) Aspartate Amino Transf (AST/SGOT) 87 U/L (15-37) Alanine Aminotransferase (ALT/SGPT) 73 U/L (14-59) Alkaline Phosphatase 72 U/L (46-116) Lactate Dehydrogenase 288 U/L (81-234) Total Protein 5.4 g/dL (6.4-8.2) Albumin 3.0 g/dL (3.4-5.0) Albumin/Globulin Ratio 1.3 (1.0-1.7) Medications Current Medications Amlodipine Besylate (Norvasc) 5 mg 1X ONCE PO ; Start 07/01/20 at 17:00; Stop 07/01/20 at 17:01; Status UNV Amlodipine Besylate (Norvasc) 5 mg DAILY PO ; Start 07/02/20 at 09:00; Status UNV Aspirin (Ecotrin) 81 mg DAILY PO Last administered on 07/02/20at 10:29; Start 07/02/20 at 09:00 Isosorbide Mononitrate (Imdur) 30 mg DAILY PO ; Start 07/02/20 at 09:00; Stop 07/01/20 at 16:59; Status DC Isosorbide Mononitrate (Imdur) 30 mg DAILY PO Last administered on 07/02/20at 10:28; Start 07/02/20 at 09:00 Labetalol HCl (Normodyne Iv Push) 20 mg PRN Q2HR PRN IVP HYPERTENSION Last administered on 07/02/20at 05:11; Start 07/01/20 at 17:00 Potassium Chloride (Klor-Con) 20 meq BIDWMEALS PO Last administered on 07/02/20at 10:27; Start 07/01/20 at 17:00 Potassium Chloride (Klor-Con) 40 meq 1X ONCE PO Last administered on 07/01/20at 16:26; Start 07/01/20 at 16:15; Stop 07/01/20 at 16:16; Status DC Potassium Chloride (Klor-Con) 40 meq 1X ONCE PO Last administered on 07/01/20at 20:59; Start 07/01/20 at 19:00; Stop 07/01/20 at 19:11; Status DC Simvastatin (Zocor) 40 mg QHS PO Last administered on 07/01/20at 20:59; Start 07/01/20 at 21:00 Vitals/I & O Vital Sign - Last 24 Hours 07/01/20 07/01/20 07/01/20 07/01/20 15:00 16:59 19:00 20:00 Temp 98.5 97.9 98.5 97.9 Pulse 92 83 68 Resp 18 18 18 B/P (MAP) 188/96 (126) 168/107 (127) 152/96 (114) Pulse Ox 92 98 96 O2 Delivery Room Air Room Air Room Air Room Air 07/01/20 07/01/20 07/02/20 07/02/20 20:59 23:00 03:10 05:11 Temp 97.5 97.8 97.5 97.8 Pulse 83 86 77 77 Resp 18 18 B/P (MAP) 168/107 161/89 (113) 153/101 (118) 153/101 Pulse Ox 95 95 O2 Delivery Room Air Room Air 07/02/20 07/02/20 07/02/20 07/02/20 07:00 08:05 10:27 10:27 Temp 97.9 97.9 Pulse 77 77 77 Resp 18 B/P (MAP) 167/109 (128) 167/109 167/109 Pulse Ox 95 O2 Delivery Room Air Room Air 07/02/20 07/02/20 10:28 11:31 Temp 97.8 97.8 Pulse 77 74 Resp 18 B/P (MAP) 167/109 162/96 (118) Pulse Ox 97 O2 Delivery Room Air Intake and Output 07/01/20 07/01/20 07/02/20 15:00 23:00 07:00 Intake Total 120 ml 202 ml Balance 120 ml 202 ml DANAE UMAÑA MD Jul 02, 2020 13:52
[2020-07-02] MEDS: ATORVASTATIN CALCIUM 40 MG TABLET. PO SCH (20:24)
[2020-07-02] MEDS: LABETALOL HCL 200 MG TABLET PO SCH (20:25)
[2020-07-02] MEDS: ZOLPIDEM 5 MG TABLET. PO PRN (21:18)
[2020-07-03] MEDS: PIPERACILLIN/TAZOBACTAM 2.25 GM in IV NORMAL SALINE 50ML 50 ML IV SCH ×2 (00:35→05:56)
[2020-07-03 03:16] VITALS: BP 166/90
[2020-07-03] MEDS: LEVOTHYROXINE 50 MCG TABLET PO SCH (05:58)
[2020-07-03 07:56] LABS: ALBUMIN/GLOBULIN RATIO 1.3 (1.0-1.7); CALCIUM 8.1 mg/dL (8.5-10.1); CREATININE 0.9 mg/dL (0.6-1.0); POTASSIUM 3.4 mmol/L (3.5-5.1); TOTAL BILIRUBIN 0.9 mg/dL (0.2-1.0); TOTAL PROTEIN 5.3 g/dL (6.4-8.2)
[2020-07-03 07:59] VITALS: BP 177/106
[2020-07-03] MEDS: LOSARTAN POTASSIUM 50 MG TABLET. PO SCH (08:51)
[2020-07-03] MEDS: ISOSORBIDE MONONITRATE ER 30 MG TAB.ER.24H PO SCH (08:52)
[2020-07-03] MEDS: CITALOPRAM 20 MG TABLET. PO SCH (08:52)
[2020-07-03] MEDS: POTASSIUM CHLORIDE 10 MEQ TABLET.ER. PO SCH ×2 (08:52→18:08)
[2020-07-03] MEDS: ASPIRIN ENTERIC COATED 81 MG TABLET.DR. PO SCH (08:52)
[2020-07-03] MEDS: PANTOPRAZOLE 40 MG TABLET.DR. PO SCH (08:52)
[2020-07-03] MEDS: LABETALOL HCL 200 MG TABLET PO SCH ×2 (08:52→21:06)
[2020-07-03] MEDS: IV NORMAL SALINE 1000ML BAG 1,000 ML IV SCH (08:54)
[2020-07-03] MEDS: POLYETHYLENE GLYCOL 3350 17 GM PACKET. PO SCH (08:59)
[2020-07-03] MEDS ORDERED: amLODIPine BESYLATE 5 MG TABLET PO SCH (09:00)
--- NOTE | 2020-07-03 10:20 | PN ---
DATE: 07/03/2020 SUBJECTIVE: The patient is resting, slightly propped up in bed, in no apparent respiratory distress. She is awake and alert. On questioning her, denied any complaint; in particular denied any chest pain or shortness of breath. PHYSICAL EXAMINATION: GENERAL: When I examined her this morning, she looked pale. No jaundice, cyanosis or thyromegaly. No jugular venous distention. No lower limb edema. VITAL SIGNS: Her heart rate was 104, blood pressure was 144/106, temperature was 97.4, respiratory rate was 20, and oxygen saturation was 94% on room air. HEAD, EYES, EARS, NOSE, AND THROAT: Showed normocephalic, atraumatic. NECK: Supple. HEART: Normal first and second heart sounds. No gallop, rub or murmur. CHEST: Clear to auscultation. No crepitation or rhonchi. ABDOMEN: Distended, soft, nontender. NEUROLOGIC: She is hard of hearing and somewhat demented, but without any obvious lateralizing sign. Her intake over the last 24 hours was 722, no output was recorded. LABORATORY DATA: Her chemistry this morning showed a serum sodium 139, potassium 3.4, chloride 103, bicarbonate 27, anion gap of 9, BUN 10, creatinine 0.9, estimated GFR was 61 mL per minute. Her glucose was 81, calcium was 8.1. Total bilirubin, AST, ALT, alkaline phosphatase were normal. Total protein was 6.3, albumin 3. As of yesterday; her white cell count is 7500; hemoglobin 11; hematocrit 33; MCV 92; and platelet count of 183,000. ASSESSMENT: 1. Atrial fibrillation with rapid ventricular response. 2. Chronic diastolic congestive heart failure. 3. Severe lactic acidosis and leukocytosis, likely due to sepsis. 4. Acute on chronic kidney injury and hyperkalemia, improved. 5. Hypertension, labile. 6. Coronary artery disease, status post percutaneous coronary intervention with stent deployment. 7. Hyperlipidemia. 8. Hypothyroidism. 9. Abnormal uterine bleeding. CT scan with possibly ovarian cancer. Abdominal ultrasound showed cholelithiasis without any evidence of acute cholecystitis. PLAN: My plan is to discontinue IV fluids, discontinue IV antibiotics. Switched her to Augmentin. I did actually speak with the gameroom technician oncologist at [facility]. Unfortunately, their office is not open. We will contact him again tomorrow to make an appointment for her to be seen for her ovarian cyst and tumor, and hopefully, she can be discharged home tomorrow as I contacted her family yesterday and today without success to get anybody to come and take her. HAIR SMITH MD DR: SALOMON/richy JOB#: [id number] / [id number]
--- NOTE | 2020-07-03 10:36 | PDOC ---
MONUMENT LETTERER PROGRESS NOTE Date of Service: DATE: 07/03/20 TIME: 10:34 Subjective: No issues or concerns. Objective: Vital Signs: Vital Signs Date Time Temp Pulse Resp B/P (MAP) Pulse Ox O2 Delivery O2 Flow Rate FiO2 07/02/20 07:00 97.9 77 18 167/109 (128) 95 Room Air 97.9 Vital Signs Date Time Temp Pulse Resp B/P (MAP) Pulse Ox O2 Delivery O2 Flow Rate FiO2 07/03/20 08:52 104 177/106 07/03/20 07:59 98.1 20 95 Room Air 98.1 Labs: Laboratory Tests Test 07/02/20 16:31 07/03/20 06:15 Glucose (Fingerstick) 113 mg/dL (70-99) H Sodium Level 139 mmol/L (136-145) Potassium Level 3.4 mmol/L (3.5-5.1) L Chloride Level 103 mmol/L (98-107) Carbon Dioxide Level 27 mmol/L (21-32) Anion Gap 9 (6-14) Blood Urea Nitrogen 10 mg/dL (7-20) Creatinine 0.9 mg/dL (0.6-1.0) Estimated GFR (Cockcroft-Gault) 61.0 BUN/Creatinine Ratio 11 (6-20) Glucose Level 81 mg/dL (70-99) Calcium Level 8.1 mg/dL (8.5-10.1) L Total Bilirubin 0.9 mg/dL (0.2-1.0) Aspartate Amino Transferase (AST) 49 U/L (15-37) H Alanine Aminotransferase (ALT) 57 U/L (14-59) Alkaline Phosphatase 64 U/L (46-116) Total Protein 5.3 g/dL (6.4-8.2) L Albumin 3.0 g/dL (3.4-5.0) L Albumin/Globulin Ratio 1.3 (1.0-1.7) Laboratory Tests 07/03/20 06:15 Laboratory Tests 07/03/20 06:15 Physical Exam: GENERAL: No apparent distress. Alert and oriented. HEENT: Head normocephalic, atraumatic. NECK: Supple LUNGS: Clear to auscultation. HEART: RRR, S1, S2 present, pulses intact ABDOMEN: Soft, positive bowel sounds. EXTREMITIES: No cyanosis or edema. NEUROLOGIC: Normal speech, normal tone PSYCHIATRIC: Normal affect, normal mood. SKIN: No ulceration. Assessment & Plan: A/P 75y who admitted for CP and SOA 1.) Ovarian mass likely CA. GynOnc referral to be arranged Saturday. 2.) PMB previously w/u, december be were mass was first noted Chest pain, SOA cardiology consulted, Chronic probable diastolic CHF; appears compensated 3.) A Fib, h/o CAD cardiology consulted, s/p PCI/stents 4.) Poor visualization of the GB w/ fluid and edema, mild splenomegaly, mild ascites, cystic along with the ovarian findings HIDA scan showed no cystic duct obstruction 5.) Sepsis - On piperacillin, tazobactam and linezolid. ID consulted 6.) Depression 7.) Rapid Covid neg 8.) SHASHANK on CKD, hyperkalemia 9.) Hypertension; controlled 10.) Hypothyroidism 11.) Encephalopathy - improved SONNY MORALES MD Jul 03, 2020 10:36
--- NOTE | 2020-07-03 11:00 | PDOC ---
PROGRESS NOTES Date of Service: DATE: 07/03/20 TIME: 10:57 Subjective Subjective No new complaints. Objective Objective Vital Signs Date Time Temp Pulse Resp B/P (MAP) Pulse Ox O2 Delivery O2 Flow Rate FiO2 07/03/20 08:52 104 177/106 07/03/20 07:59 98.1 20 95 Room Air 98.1 Intake and Output 07/03/20 07:00 Intake Total 950 ml Output Total 200 ml Balance 750 ml Intake Oral 600 ml IV Total 350 ml Output Urine Total 200 ml # Voids 3 # Bowel Movements 3 Physical Exam Abdomen: Normal bowel sounds Heart: Regular rate, Normal S2 Extremities: No clubbing General: Alert, Oriented X3 HEENT: Atraumatic Lungs: Clear to auscultation, Normal air movement Neuro: Normal gait Psych/Mental Status: Mental status NL Skin: No rashes, No breakdown Assessment Assessment 1. AFIB with RVR; rate better controlled with metoprolol. Patient poor candidate for long-term anticoagulation. Continue aspirin. 2. Chronic probable diastolic CHF; compensated 3. Severe lactic acidosis with leukocytosis: Multifactorial, improved 4. SHASHANK on CKD, hyperkalemia : Improved 5. Hypertension; labile. Change metoprolol to labetalol for better control. 6. CAD s/p PCI/stents; primary arrt technologist, Dr. Pederson at [facility] clinically stable 7. Hyperlipidemia; statin 8. Hypothyroidism; TSH 24. as per IM 9. Abnormal uterine bleeding: CT with possible ovarian CA. WELLNESS NURSE RN following 9. Abd US with cholelithiasis: No plans for surgery per general surgery team 10.. Metabolic encephaolpathy: mentation improved Comment Review of Relevant I have reviewed the following items reginald (where applicable) has been applied. Labs Laboratory Tests Test 07/02/20 16:31 07/03/20 06:15 Glucose (Fingerstick) 113 mg/dL (70-99) Sodium Level 139 mmol/L (136-145) Potassium Level 3.4 mmol/L (3.5-5.1) Chloride Level 103 mmol/L (98-107) Carbon Dioxide Level 27 mmol/L (21-32) Anion Gap 9 (6-14) Blood Urea Nitrogen 10 mg/dL (7-20) Creatinine 0.9 mg/dL (0.6-1.0) Estimated GFR (Cockcroft-Gault) 61.0 BUN/Creatinine Ratio 11 (6-20) Glucose Level 81 mg/dL (70-99) Calcium Level 8.1 mg/dL (8.5-10.1) Total Bilirubin 0.9 mg/dL (0.2-1.0) Aspartate Amino Transf (AST/SGOT) 49 U/L (15-37) Alanine Aminotransferase (ALT/SGPT) 57 U/L (14-59) Alkaline Phosphatase 64 U/L (46-116) Total Protein 5.3 g/dL (6.4-8.2) Albumin 3.0 g/dL (3.4-5.0) Albumin/Globulin Ratio 1.3 (1.0-1.7) Medications Current Medications Amlodipine Besylate (Norvasc) 5 mg DAILY PO ; Start 07/03/20 at 09:00; Status UNV Amoxicillin/ Clavulanate Potassium (Augmentin 500/ 125mg) 1 tab BID PO ; Start 07/03/20 at 10:00 Atorvastatin Calcium (Lipitor) 40 mg QHS PO Last administered on 07/02/20at 20:24; Start 07/02/20 at 21:00 Labetalol HCl (Trandate) 200 mg BID PO Last administered on 07/03/20at 08:52; Start 07/02/20 at 21:00 Vitals/I & O Vital Sign - Last 24 Hours 07/02/20 07/02/20 07/02/20 07/02/20 11:31 13:55 14:49 19:00 Temp 97.8 97.8 98.1 97.8 97.8 98.1 Pulse 74 94 86 94 Resp 18 18 18 B/P (MAP) 162/96 (118) 159/97 (117) 160/98 (118) 169/113 (131) Pulse Ox 97 97 97 O2 Delivery Room Air Room Air Room Air 07/02/20 07/02/20 07/02/20 07/03/20 20:10 20:25 23:00 03:16 Temp 97.2 97.4 97.2 97.4 Pulse 94 87 90 Resp 16 20 B/P (MAP) 169/113 132/75 (94) 166/90 (115) Pulse Ox 95 94 O2 Delivery Room Air Room Air Room Air 07/03/20 07/03/20 07/03/20 07/03/20 07:59 08:51 08:52 08:52 Temp 98.1 98.1 Pulse 104 104 104 104 Resp 20 B/P (MAP) 177/106 (129) 177/106 177/106 177/106 Pulse Ox 95 O2 Delivery Room Air Intake and Output 07/02/20 07/02/20 07/03/20 15:00 23:00 07:00 Intake Total 750 ml 200 ml Output Total 200 ml Balance 750 ml 200 ml -200 ml DANAE UMAÑA MD Jul 03, 2020 11:00
[2020-07-03 11:59] VITALS: BP 162/109
[2020-07-03] MEDS: AMOXICILLIN/K CLAV 500/125MG TABLET. PO SCH ×2 (13:38→21:06)
[2020-07-03] MEDS: LABETALOL 20 MG/4 ML DISP.SYRIN. IVP PRN (15:49)
[2020-07-03 15:59] VITALS: BP 172/105
[2020-07-03 19:00] VITALS: BP 170/97
[2020-07-03] MEDS: ATORVASTATIN CALCIUM 40 MG TABLET. PO SCH (21:06)
[2020-07-03] MEDS: ZOLPIDEM 5 MG TABLET. PO PRN (21:06)
[2020-07-03 23:00] VITALS: BP 179/114
[2020-07-04] MEDS: LABETALOL 20 MG/4 ML DISP.SYRIN. IVP PRN ×2 (03:07→10:48)
[2020-07-04 03:15] VITALS: BP 170/104
[2020-07-04] MEDS: LEVOTHYROXINE 50 MCG TABLET PO SCH (05:53)
[2020-07-04 07:00] VITALS: BP 191/109
[2020-07-04] MEDS: POTASSIUM CHLORIDE 10 MEQ TABLET.ER. PO SCH (08:38)
[2020-07-04] MEDS: POLYETHYLENE GLYCOL 3350 17 GM PACKET. PO SCH (08:38)
[2020-07-04] MEDS: ISOSORBIDE MONONITRATE ER 30 MG TAB.ER.24H PO SCH (08:39)
[2020-07-04] MEDS: AMOXICILLIN/K CLAV 500/125MG TABLET. PO SCH (08:39)
[2020-07-04] MEDS: ASPIRIN ENTERIC COATED 81 MG TABLET.DR. PO SCH (08:39)
[2020-07-04] MEDS: PANTOPRAZOLE 40 MG TABLET.DR. PO SCH (08:39)
[2020-07-04] MEDS: LABETALOL HCL 200 MG TABLET PO SCH (08:40)
[2020-07-04] MEDS: CITALOPRAM 20 MG TABLET. PO SCH (08:40)
[2020-07-04] MEDS: LOSARTAN POTASSIUM 50 MG TABLET. PO SCH (08:40)
[2020-07-04] MEDS ORDERED: AMOX1TAB58 PO (10:18)
--- NOTE | 2020-07-04 10:21 | SNU/HH DC ---
DISCHARGE WITH HOME HEALTH DISCHARGE INFORMATION: Discharge Date: Jul 04, 2020 Final Diagnosis: sepsis ovarian cancer Condition on Discharge: Stable CODE STATUS: Code Status: Full HOME HEALTH: Face to Face: /I certify this patient is under my care and that I, or a nurse practitioner or physician's nutritional assistant working with me, had a face to face encounter that meets the physician face to face encounter requirements with this patient 07/04/2020 RN For Eval/Treatment: Yes Physical Therapy For: Evalulation/Treatment Occupational Therapy For: Evaluation/Treatment Pt Meets Homebound Status: Unsteady balance w/ amb, POST DISCHARGE ORDERS: Activity Instructions for Disc: No restrictions, Activity as tolerated Weight Bearing Status after Di: No restrictions DIET AFTER DISCHARGE: Cardiac CHECKS AFTER DISCHARGE: Checks after discharge: Check blood press - daily CERTIFICATION STATEMENT: Certification Statement: Certification Statement: Based on the above finding, I certify that this patient is confined to the home and needs intermittent penitentiary care, physical therapy and/or speech therapy, or continues to need occupational therapy.~ This patient is under my care, and I have initiated the establishment of the plan of care.~ This patient will be followed by myself or a community physician who will periodically review the plan of care. Home Meds Active Scripts Amoxicillin/Potassium Clav (AUGMENTIN 500-125 TABLET) 1 Each Tablet, 1 TAB PO BID for sepsis for 7 Days, #14 TAB 0 Refills Prov:HAIR SMITH MD 07/04/20 Levothyroxine Sodium (LEVOTHYROXINE SODIUM) 50 Mcg Tablet, 50 TAB PO DAILY, #30 TAB 5 Refills Prov:KERLINE BROWN MD 02/25/15 Reported Medications Isosorbide Mononitrate (ISOSORBIDE MONONITRATE ER) 30 Mg Tab.er.24h, 1 TAB PO DAILY, #30 TAB 5 Refills 02/24/15 Hydrochlorothiazide (HYDROCHLOROTHIAZIDE TABLET) 12.5 Mg Tablet, 1 TAB PO DAILY, #30 TAB 5 Refills 02/24/15 Losartan Potassium (LOSARTAN POTASSIUM) 100 Mg Tablet, 1 TAB PO DAILY, #30 TAB 5 Refills 02/24/15 Citalopram Hydrobromide (CITALOPRAM HBR) 40 Mg Tablet, 1 TAB PO HS, #90 TAB 1 Refill 02/24/15 Simvastatin (SIMVASTATIN) 40 Mg Tablet, 1 TAB PO QHS, #30 TAB 5 Refills 02/24/15 Aspirin (ASPIR 81) 81 Mg Tablet.dr, 1 TAB PO DAILY, #30 TAB 5 Refills 02/24/15 Potassium Chloride (POTASSIUM CHLORIDE ) 10 Meq Capsule.er, 20 MEQ PO BIDWMEALS, TAB.SR 02/24/15 Zolpidem Tartrate (ZOLPIDEM TARTRATE) 10 Mg Tablet, 10 MG PO PRN QHS PRN for INSOMNIA, TAB 0 Refills 02/24/15 Cetirizine Hcl (CETIRIZINE HCL) 10 Mg Tablet, 1 TAB PO PRN DAILY PRN for CONGESTION, #30 TAB 5 Refills 02/24/15 Nebivolol Hcl (BYSTOLIC) 20 Mg Tablet, 1 TAB PO DAILY, #90 TAB 1 Refill 02/24/15 HAIR SMITH MD Jul 04, 2020 10:21
[2020-07-04 10:49] VITALS: BP 175/105
--- NOTE | 2020-07-04 11:02 | DS ---
DATE OF DISCHARGE: 07/04/2020 HOSPITAL COURSE: The patient is a 75-year-old female patient who was originally seen at [facility] with chest pain and shortness of breath. She was diagnosed with severe sepsis, lactic acidosis and questionable ovarian cancer as well as possible acute cholecystitis. She was seen by the surgical team and had had a HIDA scan that was negative for acute cholecystitis. She was seen by Dr. Jae Lainez, who recommended to referral to clergy member oncologist. She continued to be on IV antibiotic and I did switch her to oral Augmentin and as she remained hemodynamically stable, a decision was made to discharge her home with home health. PHYSICAL EXAMINATION: GENERAL: When I saw her today, she looked well and was clearly in no apparent respiratory distress. No pallor, jaundice, cyanosis or thyromegaly. No jugular venous distention. No lower limb edema. VITAL SIGNS: Her heart rate was 95, blood pressure was 191/109, temperature was 97.7, respiratory rate was 18 and oxygen saturation was 97%. HEAD, EYES, EARS, NOSE AND THROAT: Showed normocephalic, atraumatic. NECK: Supple. HEART: Showed normal first and second heart sounds. No gallop, rub or murmur. CHEST: Clear to auscultation. No crepitation or rhonchi. ABDOMEN: Distended, soft, nontender. NEUROLOGIC: She was grossly intact. LABORATORY DATA: Showed a white cell count 7500, hemoglobin 11, hematocrit 33, MCV 92, and platelet count of 183,000. Her chemistry showed a serum sodium 139, potassium 3.4, chloride 103, bicarbonate 27, anion gap of 9, BUN 10, creatinine 0.9, estimated GFR was 61 mL per minute. Her glucose was 81, calcium was 8.1. Total bilirubin, AST, ALT, alkaline phosphatase were normal. Total protein 5.3, albumin 3. Her COVID-19 by PCR was negative. DISCHARGE MEDICATIONS: She will be discharged home with home health to continue on amoxicillin/clavulanic acid 500/125 one tablet twice a day with food for 7 days, aspirin 81 mg once a day, cetirizine 10 mg once a day, citalopram hydrobromide 40 mg once a day, hydrochlorothiazide 12.5 mg once a day, isosorbide mononitrate 30 mg once a day, levothyroxine sodium 50 mcg once a day, losartan potassium 100 mg daily as needed, nebivolol for Bystolic 20 mg once a day, potassium chloride 20 mEq twice a day, simvastatin 40 mg at bedtime and Ambien 10 mg at bedtime. FINAL DISCHARGE DIAGNOSES: 1. Atrial fibrillation with rapid ventricular response, rate controlled, off anticoagulation. 2. Chronic diastolic congestive heart failure, clinically well compensated. 3. Severe lactic acidosis and leukocytosis, lactic acidosis, resolved. 4. Acute on chronic kidney injury and hyperkalemia resolved. 5. Hypertension, labile. 6. Coronary artery disease, status post percutaneous coronary intervention with stent deployment. 7. Hyperlipidemia. 8. Hypothyroidism, abnormal. The patient has ovarian mass given her age and the size of the mass and ascites are very likely an ovarian cancer and therefore we have referred her to the clergy member oncologist at [facility]. I contacted their office [phone] and we faxed all her face sheet and CT scan, ultrasound and Dr. Rowe's consult to [phone]. HAIR SMITH MD DR: SALOMON/richy JOB#: [id number] / [id number]
--- NOTE | 2020-07-04 11:13 | PDOC ---
Date of Service: DATE: 07/04/20 TIME: 11:05 Subjective: Subjective: No GI complaints, denies abdominal pain, tolerating diet. Objective: Vital Signs: Vital Signs Date Time Temp Pulse Resp B/P (MAP) Pulse Ox O2 Delivery O2 Flow Rate FiO2 07/04/20 10:49 98.5 87 18 175/105 (128) 97 Room Air 98.5 PE: GEN: NAD - was asleep LUNGS: diminished HEART: irregular ABD: S/ND/NT NEURO/PSYCH: A & O 3 A/P: A Fib, CHF, lactic acidosis, concern for ovarian cancer (recs for GynOnc eval) Normocytic anemia (stable), elevated LFTs (resolving) Cholelithiasis - no cholecystitis per HIDA COVID negative 06/30 -- Improved/stable from GI standpoint. Dc per primary - follow-up w/ GynOnc @ [facility] as discussed. 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 Justicifation of Admission Dx: Justifications for Admission: Justification of Admission Dx: Yes MADDISON CARRENO Jul 04, 2020 11:13
--- NOTE | 2020-07-04 12:59 | NUR ---
SW following. Discussed with RN, discharge order for home with home health. DAVY met with pt (no isolation precautions at the time), pt agreeable to home health, reported she has had before but can't remember the name. Pt advised she would like the same company if SW can see it in a previous admission, otherwise no preference of provider. DAVY checked previous admission, no indication of home health company. DAVY faxed referral to [employer], awaiting acceptance decision. Choice of vendor form completed. Pt reported she does not have a ride home, DAVY discussed with RN who advised they are trying to determine if pt can get into her home, based on that her purse isn't here - RN has contacted [facility] and the EMS to determine if pt's purse is there. RN is going to arrange transportation when it is figured out. DAVY will continue to follow. Addendum: 07/04/20 at 1525 by BECCA BHATTI Transportation arranged with [employer] for between [id number]. RN notified.
[2020-07-04 15:00] VITALS: BP 181/102
--- NOTE | 2020-07-04 15:46 | PDOC ---
HILDA PADILLA MANAGER MARKET DEVELOPMENT 07/04/20 1546: CARDIO Progress Notes Date and Time Date of Service 07/04/20 Time of Evaluation 1220 Subjective Subjective: No Chest Pain, No shortness of breath, No Palpitations Vitals Vitals Vital Signs Date Time Temp Pulse Resp B/P (MAP) Pulse Ox O2 Delivery O2 Flow Rate FiO2 07/04/20 15:00 98.6 91 18 181/102 (128) 96 Room Air 98.6 Weight Weight [ ] Input and Output Intake and Output Intake and Output 07/04/20 07:00 Intake Total 200 ml Output Total 600 ml Balance -400 ml Intake Oral 200 ml Output Urine Total 600 ml Physical Exam HEENT: Neck Supple W Full Motion Chest: Symmetric LUNGS: Other (diminished bases) Heart: irregularly irregular (AFIB rate controlled) Abdomen: Other (soft) Extremities: No Edema, No Calf Tenderness Neurology: alert, oriented, follow commands Assessment Assessment 1. AFIB with RVR; rate controlled. Continue aspirin therapy. OAC discontinue due to vaginal bleeding 2. Chronic probable diastolic CHF; compensated 3. Severe lactic acidosis with leukocytosis: Multifactorial, improved 4. SHASHANK on CKD, hyperkalemia : Improved 5. Hypertension; remains labile. Add hydralazine. 6. CAD s/p PCI/stents; primary rigging worker, Dr. Pederson at [facility] clinically stable 7. Hyperlipidemia; statin 8. Hypothyroidism; TSH 24. as per IM 9. Abnormal uterine bleeding: CT with possible ovarian CA. PROGRAM DEVELOPER following. Outpatient hemo/onc eval to be arranged 9. Abd US with cholelithiasis: No plans for surgery per general surgery team 10.. Metabolic encephaolpathy: mentation improved Justicifation of Admission Dx: Justifications for Admission: Justification of Admission Dx: Yes JASMEET PINTO MD 07/04/20 [id number]: CARDIO Progress Notes Assessment Assessment Patient seen and evaluated. I agree with our nurse practitioners assessment and plan as above. AFIB with RVR; rate controlled. Continue aspirin therapy. OAC discontinue due to vaginal bleeding Chronic diastolic CHF; compensated. Continue present treatment. SHASHANK on CKD, hyperkalemia : Improved Hypertension; remains labile. Add hydralazine. CAD s/p PCI/stents; primary rigging worker, Dr. Pederson at [facility] clinically stable Hyperlipidemia; statin Hypothyroidism; TSH 24. as per IM Abnormal uterine bleeding: CT with possible ovarian CA. PROGRAM DEVELOPER following. Outpatient hemo/onc eval to be arranged Abd US with cholelithiasis: No plans for surgery per general surgery team HILDA PADILLA APRN Jul 04, 2020 15:46 JASMEET PINTO MD Jul 04, 2020 18:14
--- NOTE | 2020-07-04 17:08 | NUR ---
pt left via wheelchair by [employer]. No belongings were found
== END 2020-07-04 16:50 | disposition home health service (06) | DRG 871 ==
LOC: 5 NORTH 13:04
PROVIDERS: ADMIT Internal Medicine; ATTEND Internal Medicine
DX: A41.9 Sepsis, unspecified organism (principal); G93.41 Metabolic encephalopathy; N17.9 Acute kidney failure, unspecified; C56.9 Malignant neoplasm of unspecified ovary; I13.0 Hypertensive heart and chronic kidney disease with heart failure and stage 1 through stage 4 chronic kidney disease, or unspecified chronic kidney disease; I50.32 Chronic diastolic (congestive) heart failure; J98.11 Atelectasis; N39.0 Urinary tract infection, site not specified; R18.8 Other ascites; E03.9 Hypothyroidism, unspecified; E78.5 Hyperlipidemia, unspecified; E87.5 Hyperkalemia; F41.9 Anxiety disorder, unspecified; G47.33 Obstructive sleep apnea (adult) (pediatric); I25.10 Atherosclerotic heart disease of native coronary artery without angina pectoris; I25.5 Ischemic cardiomyopathy; I48.0 Paroxysmal atrial fibrillation; K80.20 Calculus of gallbladder without cholecystitis without obstruction; N18.9 Chronic kidney disease, unspecified; N83.9 Noninflammatory disorder of ovary, fallopian tube and broad ligament, unspecified; N93.9 Abnormal uterine and vaginal bleeding, unspecified; R65.20 Severe sepsis without septic shock; Z20.828 Contact with and (suspected) exposure to other viral communicable diseases; Z79.01 Long term (current) use of anticoagulants; Z82.3 Family history of stroke; Z83.3 Family history of diabetes mellitus; Z87.891 Personal history of nicotine dependence; Z95.5 Presence of coronary angioplasty implant and graft; M19.90 Unspecified osteoarthritis, unspecified site
CPT/HCPCS: 36415; 78226; 80053; 82962; 83605; 83615; 83690; 85007; 85025; 85027; 87426; 90471; 90686; 96374; A9537; J2020; J2543; J3490; J7030; U0003; 97116-GP; G0378

== ENCOUNTER 2021-10-11 02:08 | Inpatient (IN) | payer MEDICARE, MEDICAID ==
[~2021-10-11] VITALS: Ht 157.5 cm; Wt 59.7 kg
[~2021-10-11 02:08] MED LIST changes: +ACET325T9 PO; +AMOX1TAB58 PO; +APIX5TAB PO; +CALC200T23 PO; +CHOL10004 PO; -CITA40TA5 PO; +CITA40TA6 PO; +DOCU-148 PO; +HYDR-2761 PO; -ISOS30TA4 PO; +ISOS30TA68 PO; +MAG30ORA2 PO; +MULT1TAB92 PO; +POLY17PO52 PO
[2021-10-11 02:24] LABS: BASO # 0.2 x10^3/uL (0.0-0.2); BASO % 1 % (0-3); EOS # 0.7 x10^3/uL (0.0-0.7); EOS % 3 % (0-3); HEMOGLOBIN 13.7 g/dL (12.0-15.5); LYMPH # 2.2 x10^3/uL (1.0-4.8); LYMPH % 10 % (24-48); MEAN CORPUSCULAR HEMOGLOBIN 21 pg (25-35); MEAN CORPUSCULAR HGB CONC 30 g/dL (31-37); MEAN CORPUSCULAR VOLUME 70 fL (79-100); MONO # 0.3 x10^3/uL (0.0-1.1); MONO % 1 % (0-9); NEUT # 17.8 x10^3/uL (1.8-7.7); NEUT % 84 % (31-73); PLATELET COUNT 560 x10^3/uL (140-400); RED BLOOD COUNT 6.58 x10^6/uL (3.50-5.40); RED CELL DISTRIBUTION WIDTH 21.3 % (11.5-14.5); WHITE BLOOD COUNT 21.2 x10^3/uL (4.0-11.0)
[2021-10-11 02:36] LABS: CALCIUM 8.4 mg/dL (8.5-10.1); CREATININE 1.2 mg/dL (0.6-1.0); GFR 43.7; POTASSIUM 3.9 mmol/L (3.5-5.1)
[2021-10-11 02:38] LABS: ALBUMIN/GLOBULIN RATIO 1.2 (1.0-1.7); MAGNESIUM 2.2 mg/dL (1.8-2.4); TOTAL BILIRUBIN 0.4 mg/dL (0.2-1.0); TOTAL PROTEIN 7.3 g/dL (6.4-8.2)
[2021-10-11 03:13] LABS: BARBITURATES NEG (NEG); BENZODIAZEPINES NEG (NEG); CANNABINOIDS NEG (NEG); COCAINE NEG (NEG); METHADONE NEG (NEG); OPIATES NEG (NEG); PHENCYCLIDINE NEG (NEG)
[2021-10-11 03:20] LABS: AMPHETAMINE/METHAMPHETAMINE NEG (NEG)
--- NOTE | 2021-10-11 03:58 | RAD ---
EXAM: XR CHEST 1V 10/11/2021 2:46 AM CLINICAL INDICATION: Chest pain COMPARISON: Chest radiograph 08/25/2021 TECHNIQUE: AP upright view of the chest FINDINGS: The heart is enlarged. Lungs are well-expanded and clear. No pleural effusion or pneumotho rax. IMPRESSION: Cardiomegaly. No acute abnormality. Electronically signed by: Nicolette Tee MD (10/11/2021 3:55 AM) [facility]
--- NOTE | 2021-10-11 04:08 | PHYS DOC ---
Past Medical History Past Surgical History: Other Additional Past Surgical Histo: UNKNOWN Smoking Status: Former Smoker General Adult EDM: Chief Complaint: CHEST PAIN HPI: HPI: 76-year-old female past medical history HTN, HLD, A. fib on Eliquis, hypothyroidism, anemia, tobacco use and anxiety, presents the ED from her residential facility with complaints of " I feel like someone was sitting on my chest," described left upper chest pressure with associated shortness of breath that woke patient up " out of a sleep." Patient states symptoms lasted for approximately 10 to 15 minutes and improved after aspirin was given by EMS. Is vaccinated for COVID and states she tested positive for covid within the past few months. Has family history of coronary artery disease (mother and sister). EMS reports blood pressure medications were not given tonight. History of stress test and [facility] in the past year and a half. No history of cardiac catheterization. Reports pain is very mild while in the emergency department. No alcohol or cocaine abuse. Review of Systems: Review of Systems: Constitutional: Denies fever or chills. [] Eyes: Denies change in visual acuity. [] HENT: Denies nasal congestion or sore throat. [] Respiratory: Denies cough or hemoptysis Cardiovascular: Denies syncope or edema. [] GI: Denies abdominal pain,bloody stools or diarrhea. [] : Denies dysuria or vaginal bleeding Musculoskeletal: Denies back pain or joint pain. [] Integument: Denies rash or diaphoresis Neurologic: Denies headache, focal weakness or sensory changes. [] Endocrine: Denies polyuria or polydipsia. [] Lymphatic: Denies swollen glands. [] Psychiatric: Denies depression or anxiety. [] Heart Score: C/O Chest Pain: Yes HEART Score for Chest Pain: HEART Score for Chest Pain Response (Comments) Value History Moderately Suspicious 1 ECG Nonspecific Repolarizatio 1 Age > 65 2 Risk Factors >3 Risk Factors or Hx CAD 2 Troponin < Normal Limit 0 Total 6 Risk Factors: Risk Factors: DM, Current or recent (<one month) smoker, HTN, HLP, family history of CAD, obesity. Risk Scores: Score 0 - 3: 2.5% MACE over next 6 weeks - Discharge Home Score 4 - 6: 20.3% MACE over next 6 weeks - Admit for Clinical Observation Score 7 - 10: 72.7% MACE over next 6 weeks - Early Invasive Strategies Current Medications: Current Medications Medications (Trade) Dose Ordered Sig/[place] Start Time Stop Time Status Last Admin Dose Admin Diltiazem HCl (Cardizem Iv Push) 15 mg 1X ONCE 10/11/21 03:30 10/11/21 03:31 DC 10/11/21 03:44 15 MG Allergies: Allergies: Allergies Coded Allergies Type Severity Reaction Last Updated Verified amlodipine Allergy Severe lip swelling 07/01/20 Yes hydralazine Allergy Intermediate Rash 02/24/15 Yes morphine Allergy Intermediate 02/24/15 Yes sulfamethoxazole Allergy Intermediate 07/01/20 Yes trimethoprim Allergy Intermediate 07/01/20 Yes Physical Exam: PE: Constitutional: Well developed, well nourished, no acute distress, non-toxic appearance. HENT: Normocephalic, atraumatic, Eyes: EOMI, conjunctiva normal, no discharge. Neck: Normal range of motion, supple, Cardiovascular: S1/2 present, regular rhythm Lungs & Thorax: Speaking in full sentences, bilateral equal chest rise, no tachypnea or increased work of breathing Abdomen: soft, no tenderness, Skin: Warm, dry, no erythema, no rash. [] Back: No tenderness, no CVA tenderness. [] Extremities: No tenderness, no cyanosis, no lower extremity edema Neurologic: Alert and oriented X 3, normal motor function, normal sensory function, no focal deficits noted. [] Psychologic: Affect normal, judgement normal, mood normal. [] Current Patient Data: Labs: Laboratory Tests Test 10/11/21 02:16 10/11/21 02:56 White Blood Count 21.2 x10^3/uL (4.0-11.0) H Red Blood Count 6.58 x10^6/uL (3.50-5.40) H Hemoglobin 13.7 g/dL (12.0-15.5) Hematocrit 46.0 % (36.0-47.0) Mean Corpuscular Volume 70 fL (79-100) L Mean Corpuscular Hemoglobin 21 pg (25-35) L Mean Corpuscular Hemoglobin Concent 30 g/dL (31-37) L Red Cell Distribution Width 21.3 % (11.5-14.5) H Platelet Count 560 x10^3/uL (140-400) H Neutrophils (%) (Auto) 84 % (31-73) H Lymphocytes (%) (Auto) 10 % (24-48) L Monocytes (%) (Auto) 1 % (0-9) Eosinophils (%) (Auto) 3 % (0-3) Basophils (%) (Auto) 1 % (0-3) Neutrophils # (Auto) 17.8 x10^3/uL (1.8-7.7) H Lymphocytes # (Auto) 2.2 x10^3/uL (1.0-4.8) Monocytes # (Auto) 0.3 x10^3/uL (0.0-1.1) Eosinophils # (Auto) 0.7 x10^3/uL (0.0-0.7) Basophils # (Auto) 0.2 x10^3/uL (0.0-0.2) Platelet Estimate Pending Sodium Level 140 mmol/L (136-145) Potassium Level 3.9 mmol/L (3.5-5.1) Chloride Level 102 mmol/L (98-107) Carbon Dioxide Level 31 mmol/L (21-32) Anion Gap 7 (6-14) Blood Urea Nitrogen 17 mg/dL (7-20) Creatinine 1.2 mg/dL (0.6-1.0) H Estimated GFR (Cockcroft-Gault) 43.7 BUN/Creatinine Ratio 14 (6-20) Glucose Level 107 mg/dL (70-99) H Calcium Level 8.4 mg/dL (8.5-10.1) L Magnesium Level 2.2 mg/dL (1.8-2.4) Total Bilirubin 0.4 mg/dL (0.2-1.0) Aspartate Amino Transferase (AST) 21 U/L (15-37) Alanine Aminotransferase (ALT) 15 U/L (14-59) Alkaline Phosphatase 88 U/L (46-116) Troponin I High Sensitivity 13 ng/L (4-50) AL-Xwa-M-Type Natriuretic Peptide 677 pg/mL (0-449) H Total Protein 7.3 g/dL (6.4-8.2) Albumin 4.0 g/dL (3.4-5.0) Albumin/Globulin Ratio 1.2 (1.0-1.7) Urine Opiates Screen Neg (NEG) Urine Methadone Screen Neg (NEG) Urine Barbiturates Neg (NEG) Urine Phencyclidine Screen Neg (NEG) Urine Amphetamine/Methamphetamine Neg (NEG) Urine Benzodiazepines Screen Neg (NEG) Urine Cocaine Screen Neg (NEG) Urine Cannabinoids Screen Neg (NEG) Urine Ethyl Alcohol Neg (NEG) Laboratory Tests 10/11/21 02:16 Laboratory Tests 10/11/21 02:16 Vital Signs: Vital Signs Date Time Temp Pulse Resp B/P (MAP) Pulse Ox O2 Delivery O2 Flow Rate FiO2 10/11/21 03:52 93 22 148/76 (100) 93 Room Air 10/11/21 02:10 98.5 98.5 EKG: EK A. fib with rapid ventricular rate 135 bpm, left axis deviation, QTC 45, T wave inversion 1, aVL, V5 and V6, no ST elevation or ST depression Radiology/Procedures: Radiology/Procedures: [] IMAGING REPORT Signed PATIENT: MONICO LONG ACCOUNT: [id number] : 1945 LOCATION: ER AGE: 76 SEX: F EXAM STATUS: PRE ER ORD. PHYSICIAN: DENIZ OATES DO REASON: cp PROCEDURE: PORTABLE CHEST 1V EXAM: XR CHEST 1V 10/11/2021 2:46 AM CLINICAL INDICATION: Chest pain COMPARISON: Chest radiograph 08/25/2021 TECHNIQUE: AP upright view of the chest FINDINGS: The heart is enlarged. Lungs are well-expanded and clear. No pleural effusion or pneumothorax. IMPRESSION: Cardiomegaly. No acute abnormality. Electronically signed by: Nicolette Tee MD (10/11/2021 3:55 AM) [facility] DICTATED and SIGNED BY: NICOLETTE TEE MD DATE: 10/11/21 [id number] 0 Course & Med Decision Making: Course & Med Decision Making Pertinent Labs and Imaging studies reviewed. (See chart for details) Concern for chest pain in the setting of uncontrolled hypertension and A. fib with RVR. After the Cardizem was given heart rate was 95. Chest x-ray with cardiomegaly. EKG with inferior lateral T wave inversions. Patient with no history of coronary artery disease. Admit for serial troponins, further medical management and cardiology consultation. Patient stable time of admission agrees with this plan. I have spoken with the patient and/or caregivers. I have explained the patient's condition, diagnosis and treatment plan based on the information available to me at this time. I have answered the patient's and/or caregivers questions and answered any concerns. The patient and/or caregivers have as good an understanding of the patient's diagnosis, condition and treatment plan as can be expected at this point. The patient has been stabilized within the capability of the emergency department. The patient will be transported for further care and management or will be moved to an observation or inpatient [facility]. I have communicated with the staff or medical practitioner taking over this patient's care. Dragon Disclaimer: Dragon Disclaimer: This electronic medical record was generated, in whole or in part, using a voice recognition dictation system. Departure Departure Impression: Primary Impression: Chest pain Additional Impressions: Atrial fibrillation with rapid ventricular response Renal insufficiency Leukocytosis Disposition: ADMITTED INPATIENT Admitting Physician: [facility] (Dr. Oviedo) Condition: STABLE Referrals: NO PCP (PCP) DENIZ OATES DO Oct 11, 2021 04:08
[2021-10-11 05:31] LABS: BILIRUBIN,URINE NEGATIVE (NEG); CLARITY,URINE CLEAR; COLOR,URINE YELLOW; NITRITE,URINE NEGATIVE (NEG); PH,URINE 7.5 (<5.0-8.0); PROTEIN,URINE 100 mg/dL (NEG-TRACE); UROBILINOGEN,URINE 0.2 mg/dL (0.2 mg/dL)
[2021-10-11 05:32] LABS: BACTERIA,URINE FEW /HPF (0-FEW); RBC,URINE OCC /HPF (0-2)
--- NOTE | 2021-10-11 06:20 | EKG ---
[facility] [address] [place] [address] Test Date: 2021-10-11 Test Time: 02:15:06 Pat Name: MONICO LONG Department: Room: Gender: F Movie Star: : 1945 Requested By: DENIZ OATES Order Number: [id number] Reading MD: Wesley Lares MD Measurements Intervals [place] Rate: 135 P: NM: QRS: -27 QRSD: 88 T: 156 QT: 320 QTc: 485 Interpretive Statements ATRIAL FIBRILLATION/SVT ANTEROLATERAL ISCHEMIA LAD Electronically Signed On 10-16-2021 11:25:45 PERFORMANCE MANAGER by Wesley Lares MD
[2021-10-11 07:30] VITALS: BP 174/80
[2021-10-11 07:46] LABS: % ATYL 2 % (0-0); % EOS 1 % (0-5); % LYMPHS 16 % (24-48); % MONOS 1 % (0-10); % SEGS 80 % (35-66); PLT ESTIMATE ADEQUATE (ADEQUATE)
[2021-10-11 07:47] LABS: ANISOCYTOSIS SLIGHT; HYPOCHROMIA SLIGHT
[2021-10-11 08:09] LABS: CHOLESTEROL/HDL RATIO 3.2
[2021-10-11] MEDS ORDERED: METOPROLOL IV PUSH 5 MG/5 ML VIAL. IVP ONE (08:30)
[2021-10-11] MEDS: cefTRIAXone IV Push 1 GM VIAL. IVP SCH (09:03)
--- NOTE | 2021-10-11 09:42 | PDOC2 ---
MORRIS DAILEY MASSAGE THERAPIST 10/11/21 0942: CARDIAC CONSULT DATE OF CONSULT Date of Consult DATE: 10/11/21 TIME: 09:26 REASON FOR CONSULT Reason for Consult: Chest pain REFERRING PHYSICIAN Referring Physician: [facility] SOURCE Source: Chart review, Patient HISTORY OF PRESENT ILLNESS HISTORY OF PRESENT ILLNESS This is a pleasant 76 yo female admitted for complains of chest pain. Reports that this woke her up from her sleep describing it as midchest pressure but no sensation of palpitations. No nausea or vomiting. Has some SOA. No dizziness. Positive for bilateral arm discomfort. No recent falls or injury. No recent MPI or LHC and sees Dr. Pederson at [facility]. She has been feeling fatigue lately as well. PAST MEDICAL HISTORY Past Medical History Coronary artery disease s/p PCI/stent placement CHF PAFIB Hypertension Hyperlipidemia Hypothyroidism Chronic kidney disease Obstructive sleep apnea PAST SURGICAL HISTORY Past Surgical History: Appendectomy, Cataract Removal FAMILY HISTORY Family History: Family History Unknown SOCIAL HISTORY Smoke: Quit ALCOHOL: none Drugs: None Lives: Long Term CURRENT MEDICATIONS CURRENT MEDICATIONS Current Medications Medications (Trade) Dose Ordered Sig/Merced Route PRN Reason Start Time Stop Time Status Last Admin Dose Admin Diltiazem HCl (Cardizem Iv Push) 15 mg 1X ONCE IVP 10/11/21 03:30 10/11/21 03:31 DC 10/11/21 03:44 Metoprolol Tartrate (Lopressor Vial) 5 mg 1X ONCE IVP 10/11/21 08:30 10/11/21 08:31 DC 10/11/21 08:37 Ceftriaxone Sodium (Rocephin) 1 gm Q24H IVP 10/11/21 09:00 10/11/21 09:03 ALLERGIES ALLERGIES: Coded Allergies: amlodipine (Verified Allergy, Severe, lip swelling, 10/11/21) hydralazine (Verified Allergy, Intermediate, Rash, 10/11/21) morphine (Verified Allergy, Intermediate, 10/11/21) "makes me act loopy" sulfamethoxazole (Verified Allergy, Intermediate, 10/11/21) trimethoprim (Verified Allergy, Intermediate, 10/11/21) ROS Review of System 14 point ROS evaluated with pertinent positives noted per HPI PHYSICAL EXAM General: Alert, Oriented X3, Cooperative, No acute distress HEENT: Atraumatic, Mucous membr. moist/pink, Other (LA JOLLA) Lungs: Clear to auscultation, Normal air movement Heart: Other (AFIB RVR) Abdomen: Soft, No tenderness Extremities: No cyanosis Skin: No breakdown, No significant lesion Neuro: Normal speech, Sensation intact Psych/Mental Status: Mental status NL, Mood NL MUSCULOSKELETAL: Osteoarthritic changes both hands VITALS/I&O VITALS/I&O: Vital Signs Date Time Temp Pulse Resp B/P (MAP) Pulse Ox O2 Delivery O2 Flow Rate FiO2 10/11/21 08:37 102 174/80 10/11/21 07:30 98.3 18 97 Room Air 98.3 LABS Lab: Laboratory Tests Test 10/11/21 02:16 10/11/21 02:56 10/11/21 05:42 10/11/21 08:11 White Blood Count 21.2 x10^3/uL (4.0-11.0) H Red Blood Count 6.58 x10^6/uL (3.50-5.40) H Hemoglobin 13.7 g/dL (12.0-15.5) Hematocrit 46.0 % (36.0-47.0) Mean Corpuscular Volume 70 fL (79-100) L Mean Corpuscular Hemoglobin 21 pg (25-35) L Mean Corpuscular Hemoglobin Concent 30 g/dL (31-37) L Red Cell Distribution Width 21.3 % (11.5-14.5) H Platelet Count 560 x10^3/uL (140-400) H Neutrophils (%) (Auto) 84 % (31-73) H Lymphocytes (%) (Auto) 10 % (24-48) L Monocytes (%) (Auto) 1 % (0-9) Eosinophils (%) (Auto) 3 % (0-3) Basophils (%) (Auto) 1 % (0-3) Neutrophils # (Auto) 17.8 x10^3/uL (1.8-7.7) H Lymphocytes # (Auto) 2.2 x10^3/uL (1.0-4.8) Monocytes # (Auto) 0.3 x10^3/uL (0.0-1.1) Eosinophils # (Auto) 0.7 x10^3/uL (0.0-0.7) Basophils # (Auto) 0.2 x10^3/uL (0.0-0.2) Segmented Neutrophils % 80 % (35-66) H Lymphocytes % 16 % (24-48) L Atypical Lymphocytes % (Manual) 2 % (0-0) H Monocytes % 1 % (0-10) Eosinophils % 1 % (0-5) Platelet Estimate Adequate (ADEQUATE) Large Platelets Few Hypochromasia Slight Anisocytosis Slight Sodium Level 140 mmol/L (136-145) Potassium Level 3.9 mmol/L (3.5-5.1) Chloride Level 102 mmol/L (98-107) Carbon Dioxide Level 31 mmol/L (21-32) Anion Gap 7 (6-14) Blood Urea Nitrogen 17 mg/dL (7-20) Creatinine 1.2 mg/dL (0.6-1.0) H Estimated GFR (Cockcroft-Gault) 43.7 BUN/Creatinine Ratio 14 (6-20) Glucose Level 107 mg/dL (70-99) H Calcium Level 8.4 mg/dL (8.5-10.1) L Magnesium Level 2.2 mg/dL (1.8-2.4) Total Bilirubin 0.4 mg/dL (0.2-1.0) Aspartate Amino Transferase (AST) 21 U/L (15-37) Alanine Aminotransferase (ALT) 15 U/L (14-59) Alkaline Phosphatase 88 U/L (46-116) Troponin I High Sensitivity 13 ng/L (4-50) 91 ng/L (4-50) H 219 ng/L (4-50) H LX-Blj-K-Type Natriuretic Peptide 677 pg/mL (0-449) H Total Protein 7.3 g/dL (6.4-8.2) Albumin 4.0 g/dL (3.4-5.0) Albumin/Globulin Ratio 1.2 (1.0-1.7) Urine Collection Type Unknown Urine Color Yellow Urine Clarity Clear Urine pH 7.5 (<5.0-8.0) Urine Specific [place] 1.015 (1.000-1.030) Urine Protein 100 mg/dL (NEG-TRACE) Urine Glucose (UA) Negative mg/dL (NEG) Urine Ketones (Stick) Negative mg/dL (NEG) Urine Blood Negative (NEG) Urine Nitrite Negative (NEG) Urine Bilirubin Negative (NEG) Urine Urobilinogen Dipstick 0.2 mg/dL (0.2 mg/dL) Urine Leukocyte Esterase Negative (NEG) Urine RBC Occ /HPF (0-2) Urine WBC 1-4 /HPF (0-4) Urine Squamous Epithelial Cells Few /LPF Urine Transitional Epithelial Cells Occ /LPF Urine Bacteria Few /HPF (0-FEW) Urine Opiates Screen Neg (NEG) Urine Methadone Screen Neg (NEG) Urine Barbiturates Neg (NEG) Urine Phencyclidine Screen Neg (NEG) Urine Amphetamine/Methamphetamine Neg (NEG) Urine Benzodiazepines Screen Neg (NEG) Urine Cocaine Screen Neg (NEG) Urine Cannabinoids Screen Neg (NEG) Urine Ethyl Alcohol Neg (NEG) Triglycerides Level 177 mg/dL (0-150) H Cholesterol Level 134 mg/dL (0-200) LDL Cholesterol, Calculated 57 mg/dL (0-100) VLDL Cholesterol, Calculated 35 mg/dL (0-40) Non-HDL Cholesterol Calculated 92 mg/dL (0-129) HDL Cholesterol 42 mg/dL (40-60) Cholesterol/HDL Ratio 3.2 Thyroid Stimulating Hormone (TSH) 17.020 uIU/mL (0.358-3.74) H Laboratory Tests 10/11/21 02:16 Laboratory Tests 10/11/21 02:16 ASSESSMENT/PLAN ASSESSMENT/PLAN 1. NSTEMI: ischemic changes to V3-V6 with ST depression 2. HTN urgency 3. AFIB RVR: paroxysmal by hx 4. HLP 5. Chronic diastolic CHF 6. HYpothyroidism: TSH not on goal 7. CAD: past stents 8. Leukocytosis Recommendations 1. Will need ischemic workup. Will control HTN and AFIB, med adjustment 2. Secondary prevention measures 3. TTE 4. ASA, hold eliquis for possible [facility] JASMEET PINTO MD 10/11/21 1624: CARDIAC CONSULT ASSESSMENT/PLAN ASSESSMENT/PLAN Patient seen and examined She is feeling better and denies chest pain. I agree with our nurse practitioners assessment and plan. NSTEMI: ischemic changes to V3-V6 with ST depression. History of coronary artery disease with stents. Now chest pain-free. Heart rate to 120-130. We will initially control the patient's heart rate. Further ischemia evaluation once completed. HTN urgency. Improving on present treatment. AFIB RVR: paroxysmal by hx. elevated rate as above. HLP Chronic diastolic CHF Hypothyroidism: TSH not on goal CAD: past stents MORRIS DAILEY APRN Oct 11, 2021 09:42 JASMEET PINTO MD Oct 11, 2021 16:24
[2021-10-11] MEDS ORDERED: HEPARIN 25,000UTS/250ML PREMIX 250 ML IV PRN (10:15)
[2021-10-11 10:19] VITALS: BP 150/99
[2021-10-11] MEDS ORDERED: DIGOXIN IV 500 MCG/2 ML AMPUL. IV ONE (10:45)
--- NOTE | 2021-10-11 11:29 | HP ---
DATE OF SERVICE: 10/11/2021 ADMIT DATE: 10/11/2021 CHIEF COMPLAINT: Chest discomfort. HISTORY OF PRESENT ILLNESS: The patient is a pleasant 76-year-old female who presented to the ER last night with chest discomfort. She has a known history of AFib and she is on chronic anticoagulation with Eliquis. She has associated weakness that has been occurring for several days. She states it feels like something was sitting on her chest. She has previous known coronary artery disease with 5 prior stents. I discussed the case with ER physician. The patient has been admitted. We will consult Cardiology. I understand she is going to the [facility]phalt plant laborer later today. PAST MEDICAL HISTORY: CAD with previous stents, AFib, hyperlipidemia, hypertension, hypothyroidism, anemia, tobacco abuse, anxiety. ALLERGIES: AMLODIPINE, HYDRALAZINE, MORPHINE, BACTERUM. FAMILY HISTORY: Coronary artery disease. 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 She quit smoking. No drink or drugs. MEDICATIONS: Reviewed, please refer to the MRAD. REVIEW OF SYSTEMS: GENERAL: No history of weight change, weakness or fevers. SKIN: No bruising, hair changes or rashes. EYES: No blurred, double or loss of vision. NOSE AND THROAT: No history of nosebleeds, hoarseness or sore throat. HEART: No history of palpitations, chest pain or shortness of breath on exertion. LUNGS: Denies cough, hemoptysis, wheezing or shortness of breath. GASTROINTESTINAL: Denies changes in appetite, nausea, vomiting, diarrhea or constipation. GENITOURINARY: No history of frequency, urgency, hesitancy or nocturia. NEUROLOGIC: Denies history of numbness, tingling, tremor or weakness. PSYCHIATRIC: No history of panic, anxiety or depression. ENDOCRINE: No history of heat or cold intolerance, polyuria or polydipsia. EXTREMITIES: Denies muscle weakness, joint pain, pain on walking or stiffness. PHYSICAL EXAMINATION: VITALS: Within normal limits and are stable. GENERAL: No apparent distress. Alert and oriented. HEENT: Normal cephalic atraumatic, external auditory canals are patent EYES: Extraocular muscles are intact, pupils are equally round and reactive to light and accommodation MUSCULOSKELETAL: Well developed, well nourished, good range of motion ENDOCRINE: No thyromegaly was palpated LYMPHATICS: No cervical chain or axillary nodes were noted HEMATOPOIETIC: No bruising NECK: Supple, no JVD, no thyromegaly was noted. LUNGS: Clear to auscultation in all lung cox without rhonchi or wheezing. HEART: RRR, S1, S2 present. Peripheral pulses intact, no obvious murmurs were noted. ABDOMEN: Soft, nontender. Positive bowel sounds no organomegaly, normal bowel sounds. EXTREMITIES: Without any cyanosis, clubbing, or edema. Pedal pulses intact, Homans sign is negative. NEUROLOGIC: Normal speech, normal tone. A and O x 3, moves all extremities, no obvious focal deficits. PSYCHIATRIC: Normal affect, normal mood. Stable. SKIN: No ulcerations or rashes, good skin turgor, no jaundice. VASCULAR: Good capillary refill, neurovascular bundle appears to be intact. LABORATORY DATA: Troponin is 91. It then went up to 219. ASSESSMENT AND PLAN: Chest pain with previous known coronary artery disease with elevated troponin. The patient has been admitted. We have consulted Cardiology. They are taking her to the asphalt plant laborer this afternoon. For now, continue cardiac monitoring, serial enzymes, serial EKGs, home meds. DVT prophylaxis. Full code. Await cardiac catheterization results. MYRANDA/KULDEEP/ANUSHA DR: MYRANDA/richy TID: [id number]
[2021-10-11] MEDS ORDERED: CETIRIZINE HCL 10 MG TABLET. PO PRN (13:15)
[2021-10-11] MEDS ORDERED: POLYETHYLENE GLYCOL 3350 17 GM PACKET. PO PRN (13:15)
--- NOTE | 2021-10-11 13:21 | NUR ---
SS following for discharge planning. SS reviewed pt chart and discussed with pt RN. Pt is LT resident from [facility], ; fax [phone]. COVID19 test requested by facility. Pt's RN notified. Pt is currently on room air. Pt on IV Rocephin. Heparin drip. Cardiology following. SS will continue to follow for discharge planning.
[2021-10-11 15:00] VITALS: BP 181/112
[2021-10-11] MEDS: LABETALOL 20 MG/4 ML DISP.SYRIN. IVP PRN ×2 (15:38→20:38)
[2021-10-11] MEDS ORDERED: LOSARTAN POTASSIUM 50 MG TABLET. PO ONE (16:00)
[2021-10-11] MEDS ORDERED: METOPROLOL TART IMMED RELEASE 50 MG TABLET. PO ONE (17:15)
[2021-10-11] MEDS: POTASSIUM CHLORIDE 20 MEQ TABLET.ER. PO SCH (17:19)
[2021-10-11 19:00] VITALS: BP 194/88
[2021-10-11] MEDS: HEPARIN for IV BOLUS 10,000 UNIT/10 ML VIAL. IV PRN (19:03)
--- NOTE | 2021-10-11 19:15 | NUR ---
Pt in bed assessment completed vss poc explained pt denied pain at this time will resume care and continue to monitor pt.
[2021-10-11 20:35] VITALS: BP 175/99
[2021-10-11] MEDS: DOCUSATE SODIUM 100 MG CAPSULE. PO SCH (20:36)
[2021-10-11] MEDS: CITALOPRAM 20 MG TABLET. PO SCH (20:36)
[2021-10-11] MEDS: SIMVASTATIN 40 MG TABLET. PO SCH (20:37)
[2021-10-11] MEDS: METOPROLOL TART IMMED RELEASE 50 MG TABLET. PO SCH (20:37)
[2021-10-11] MEDS ORDERED: APIXABAN 5 MG TABLET. PO SCH (21:00)
[2021-10-11 22:39] VITALS: BP 171/79
[2021-10-12] VITALS (19 sets, daily range): BP systolic 103–220; BP diastolic 58–95
[2021-10-12] MEDS: HEPARIN for IV BOLUS 10,000 UNIT/10 ML VIAL. IV PRN (01:14)
[2021-10-12] MEDS: LABETALOL 20 MG/4 ML DISP.SYRIN. IVP PRN (02:51)
[2021-10-12] MEDS ORDERED: LEVOTHYROXINE 50 MCG TABLET PO SCH (07:00)
[2021-10-12 08:32] LABS: HEMATOCRIT 48.7 % (36.0-47.0); RED BLOOD COUNT 6.93 x10^6/uL (3.50-5.40); RED CELL DISTRIBUTION WIDTH 20.9 % (11.5-14.5); WHITE BLOOD COUNT 22.6 x10^3/uL (4.0-11.0)
[2021-10-12] MEDS: ASPIRIN ENTERIC COATED 81 MG TABLET.DR. PO SCH (08:50)
[2021-10-12] MEDS: CHOLECALCIFEROL (VITAMIN D3) 1,000 UNIT TABLET PO SCH (08:50)
[2021-10-12] MEDS: MULTIVITAMIN with MINERAL TABLET. PO SCH (08:50)
[2021-10-12] MEDS: POTASSIUM CHLORIDE 20 MEQ TABLET.ER. PO SCH ×2 (08:50→17:41)
[2021-10-12] MEDS: ISOSORBIDE MONONITRATE ER 30 MG TAB.ER.24H PO SCH (08:51)
[2021-10-12] MEDS: METOPROLOL TART IMMED RELEASE 50 MG TABLET. PO SCH ×2 (08:52→21:22)
[2021-10-12] MEDS: cefTRIAXone IV Push 1 GM VIAL. IVP SCH (08:52)
[2021-10-12] MEDS: LOSARTAN POTASSIUM 50 MG TABLET. PO SCH (08:52)
[2021-10-12] MEDS: hydroCHLOROthiazide 12.5 MG CAPSULE PO SCH (09:00)
[2021-10-12] MEDS: DOCUSATE SODIUM 100 MG CAPSULE. PO SCH ×2 (09:00→21:23)
[2021-10-12 10:26] LABS: INFLUENZA A PATIENT NEGATIVE (NEGATIVE); INFLUENZA B PATIENT NEGATIVE (NEGATIVE)
--- NOTE | 2021-10-12 10:47 | PDOC ---
[employer] PROGRESS NOTE Date of Service DOS: DATE: 10/12/21 TIME: 10:44 Chief Complaint Chief Complaint Chest pain with elevated troponin CAD with previous stents, AFib, hyperlipidemia, hypertension, hypothyroidism, anemia, tobacco abuse, anxiety. History of Present Illness History of Present Illness 10/12/2021 Patient seen and examined Discussed with RN Discussed with cardiology Chart reviewed Discussed with case management Patient is going for cardiac cath today Her TSH is a little high went ahead and called pharmacy and we increased her Synthroid to 75 a day Vitals/I&O Vitals/I&O: Vital Signs Date Time Temp Pulse Resp B/P (MAP) Pulse Ox O2 Delivery O2 Flow Rate FiO2 10/12/21 08:52 78 168/95 10/12/21 08:00 Room Air 10/12/21 07:00 97.9 18 94 97.9 I & O 10/11/21 10/11/21 10/12/21 15:00 23:00 07:00 Intake Total 0 ml 540 ml 200 ml Output Total 450 ml 400 ml Balance 0 ml 90 ml -200 ml Physical Exam General: Alert, Oriented X3, Cooperative, No acute distress Heart: Other (AFIB RVR) Lungs: Clear Abdomen: Soft, No tenderness Extremities: No cyanosis Skin: No breakdown, No significant lesion Labs Labs: Laboratory Tests Test 10/11/21 18:07 10/12/21 00:45 10/12/21 07:55 10/12/21 09:40 Heparin Anti-Xa Act, Unfractionated < 0.10 IU/mL (0.30-0.70) 0.13 IU/mL (0.30-0.70) 0.49 IU/mL (0.30-0.70) White Blood Count 22.6 x10^3/uL (4.0-11.0) Red Blood Count 6.93 x10^6/uL (3.50-5.40) Hemoglobin 14.0 g/dL (12.0-15.5) Hematocrit 48.7 % (36.0-47.0) Mean Corpuscular Volume 70 fL (79-100) Mean Corpuscular Hemoglobin 20 pg (25-35) Mean Corpuscular Hemoglobin Concent 29 g/dL (31-37) Red Cell Distribution Width 20.9 % (11.5-14.5) Platelet Count 500 x10^3/uL (140-400) Influenza Type A Antigen Negative (NEGATIVE) Influenza Type B Antigen Negative (NEGATIVE) SARS-CoV-2 Antigen (Rapid) Negative (NEGATIVE) Assessment and Plan Assessmemt and Plan Problems Medical Problems: (1) Atrial fibrillation with rapid ventricular response Status: Acute (2) Leukocytosis Status: Acute (3) Renal insufficiency Status: Acut Chest pain with elevated troponin Leukocytosis CAD with previous stents, AFib, hyperlipidemia, hypertension, hypothyroidism, anemia, tobacco abuse, anxiety. Samuel She is going for cardiac cath today Increased her Synthroid to 75 a day Await cath report Cardiac monitoring Continue empiric Rocephin for the leukocytosis Serial enzymes Serial EKGs Home meds DVT prophylaxis Full code Appreciate cardiology input Comment Review of Relevant I have reviewed the following items reginald (where applicable) has been applied. Medications: Current Medications Medications (Trade) Dose Ordered Sig/Merced Route PRN Reason Start Time Stop Time Status Last Admin Dose Admin Aspirin (Ecotrin) 81 mg DAILYWBKFT PO 10/12/21 08:00 10/12/21 08:50 Vitamin D (Vitamin D3) 1,000 unit DAILY PO 10/12/21 09:00 10/12/21 08:50 Docusate Sodium (Colace) 100 mg BID PO 10/11/21 21:00 10/11/21 20:36 Isosorbide Mononitrate (Imdur) 30 mg DAILY PO 10/12/21 09:00 10/12/21 08:51 Levothyroxine Sodium (Synthroid) 50 mcg DAILY07 PO 10/12/21 07:00 10/12/21 05:47 Multivitamins (Thera M Plus) 1 tab DAILY PO 10/12/21 09:00 10/12/21 08:50 Potassium Chloride (Klor-Con) 20 meq BIDWMEALS PO 10/11/21 17:00 10/12/21 08:50 Simvastatin (Zocor) 40 mg QHS PO 10/11/21 21:00 10/11/21 20:37 Citalopram Hydrobromide (CeleXA) 40 mg HS PO 10/11/21 21:00 10/11/21 20:36 Losartan Potassium (Cozaar) 100 mg DAILY PO 10/12/21 09:00 10/12/21 08:52 Metoprolol Tartrate (Lopressor) 50 mg BID PO 10/11/21 21:00 10/12/21 08:52 Losartan Potassium (Cozaar) 100 mg 1X ONCE PO 10/11/21 16:00 10/11/21 16:01 DC 10/11/21 15:37 Metoprolol Tartrate (Lopressor) 50 mg 1X ONCE PO 10/11/21 17:15 10/11/21 17:16 DC 10/11/21 17:19 Justifications for Admission Other Justification Right hip fracture ROSALVA SOTOMAYOR III DO Oct 12, 2021 10:47
[2021-10-12] MEDS ORDERED: IV NORMAL SALINE 1000ML BAG 1,000 ML IV ONE (11:15)
[2021-10-12] MEDS ORDERED: fentaNYL PF VIAL 100 MCG/2 ML VIAL ONE (13:45)
[2021-10-12] MEDS ORDERED: MIDAZOLAM HCL/PF 2 MG/2 ML VIAL. ONE (13:46)
[2021-10-12] MEDS ORDERED: NITROGLYCERIN 200 MCG/2 ML SYRINGE FOR CATH/VASC LAB. ONE ×2 (13:46→14:22)
[2021-10-12] MEDS ORDERED: VERAPAMIL 5 MG/2 ML VIAL. ONE (13:46)
[2021-10-12] MEDS ORDERED: HEPARIN for IV BOLUS 10,000 UNIT/10 ML VIAL. ONE (13:46)
[2021-10-12] MEDS ORDERED: LIDOCAINE 1% PF 2 ML VIAL. ONE (13:59)
[2021-10-12] MEDS ORDERED: IODIXANOL 320 MG/ML 100 ML VIAL. ONE (13:59)
--- NOTE | 2021-10-12 14:19 | NUR ---
Discharge Note: MON[facility] LONG [address] Discharge instructions and discharge home medications reviewed with Patient and a copy given. All questions have been answered and understanding verbalized. The following instructions and handouts were given: chest pain, a-fib, HTN IV discontinued, no complications Patient discharged to home with self care. All belongings taken home with patient. Addendum: 10/12/21 at 1533 by YOUSIF MAXWELL RN disregard this note. On wrong patient.
[2021-10-12] MEDS ORDERED: VERAPAMIL 5 MG/2 ML VIAL. IART ONE (14:30)
[2021-10-12] MEDS ORDERED: MIDAZOLAM HCL/PF 2 MG/2 ML VIAL. IV ONE (14:30)
[2021-10-12] MEDS ORDERED: NITROGLYCERIN 200 MCG/2 ML SYRINGE FOR CATH/VASC LAB. IART ONE (14:30)
[2021-10-12] MEDS ORDERED: NITROGLYCERIN 200 MCG/2 ML SYRINGE FOR CATH/VASC LAB. ICAR ONE (14:30)
[2021-10-12] MEDS ORDERED: IODIXANOL 320 MG/ML 100 ML VIAL. IART ONE (14:30)
[2021-10-12] MEDS ORDERED: LIDOCAINE 1% PF 2 ML VIAL. INJ ONE (14:30)
[2021-10-12] MEDS ORDERED: HEPARIN for IV BOLUS 10,000 UNIT/10 ML VIAL. IART ONE (14:30)
[2021-10-12] MEDS ORDERED: fentaNYL PF VIAL 100 MCG/2 ML VIAL IV ONE (14:30)
--- NOTE | 2021-10-12 14:39 | NUR ---
SS following up with discharge planning. SS reviewed pt chart and discussed with pt RN. Pt is currently on room air. COVID19 negative. Pt is [facility] resident from [facility], ; fax [phone]. Cardiology following. Heart cath today. Heparin drip. Pt on IV Rocephin. Not ready. SS will continue to follow for discharge planning.
--- NOTE | 2021-10-12 15:06 | CARD ---
MR#: [id number] Date of Study: 10/12/2021 Ordering Physician: MORRIS DAILEY, Referring Physician: MORRIS DAILEY, Tech: Eli Moreno RT(R)() APPROVED REPORT Technologist: Eli Moreno RT(R)() Nurse: Kimber Bautista RN Procedure(s) performed: MODERATE SEDATION TIME: 23 MINUTES FLUORO TIME: 1.9 MIN DOSE: 44.1 GYCM2 CONTRAST: 55CC VISI LHC, Coronary angiography INDICATION The indication(s) include : non-STEMI . CS Clinical Frailty Scale [facility] Clinical Frailty Scale: Severely Frail Heart Failure Heart Failure: Yes If Yes, Newly Diagnosed: No If Yes, HF Type: Diastolic If Yes, NYHA Class: Class III PROCEDURE NARRATIVE Clinical information: 76-year-old woman came in with A. fib with RVR and mild troponin elevation with EKG changes suggestiv e of inferolateral ischemia. Procedure details: After proper informed consent the right wrist was prepped and draped in usual sterile fashion. Under 1% lidocaine local anesthesia a 6 Jordanian sheath was placed in the right radial artery. Diagnostic a ngiography was then performed with a 6 Jordanian TIG catheter. Left ventricular end-diastolic pressure was obtained with a 6 Jordanian TIG catheter and a pullback was performed. At case completion the arnulfo ters and sheath were removed and hemostasis was achieved via a Terumo radial band in the right wrist. No acute complications. Findings: Aorta 140/80 LVEDP 10 mmHg Left main is a large-caliber vessel with mild luminal irregularities LAD is a moderate caliber vessel with patent bifurcation stents involving the first diagonal and silvia re negative remodeling and tapered mid to distal segment with moderate diffuse disease D1 is a small caliber vessel with a patent proximal stent and a 50% stent edge stenosis in the distal segment. Left circumflex is a moderate caliber nondominant vessel with a patent stent in the midsegment. OM1 is a moderate caliber vessel with mild diffuse irregularities of up to 40% OM 2 is a moderate caliber vessel with proximal to mid diffuse 40% stenosis RCA is a very large caliber dominant vessel with a proximal 70% stenosis. Conclusion 1. Normal left-sided filling pressures 2. Three-vessel coronary artery disease with patent stents in the LAD and circumflex Recommendations 1. Plan for optimization of her atrial fibrillation with consideration of AMY/cardioversion and outp atient PCI of the right coronary artery with likely orbital atherectomy. Signed by : Wesley Lares, Electronically Approved : 10/12/2021 15:06:05
--- NOTE | 2021-10-12 16:48 | CARD ---
MR#: [id number] Date of Study: 10/12/2021 Ordering Physician: MORRIS DAILEY, Referring Physician: MORRIS DAILEY Tech: Panchito Sellers [facility] APPROVED REPORT EXAM: Two-dimensional and M-mode echocardiogram with Doppler and color Doppler. Other Information Quality : AverageHR: 87bpm Rhythm : Atrial Fibrillation INDICATION Cardiac Disease: CAD Congestive Heart Failure Non STEMI RISK FACTORS Hypertension Hyperlipidemia Chronic kidney disease 2D DIMENSIONS Left Atrium(2D)4.6 (1.6-4.0cm)IVSd1.7 (0.7-1.1cm) Aortic Root(2D)2.9 (2.0-3.7cm)LVDd3.4 (3.9-5.9cm) LVOT Diameter1.8 (1.8-2.4cm)PWd1.7 (0.7-1.1cm) LA Anozbo516 (18-58mL)LVDs2.1 (2.5-4.0cm) FS (%) 38.7 %SV33.3 ml Aortic Valve AoV Peak Barrett.104.2cm/sAoV VTI19.3cm AO Peak GR.4.3mmHgLVOT Peak Barrett.84.0cm/s AO Mean GR.3mmHgAVA (VMAX)1.95cm2 Mitral Valve MV E Peak Gr.3mmHgMV E Mean Gr.2mmHg Pulmonary Valve PV Peak Jkbeccvt661.8cm/s Tricuspid Valve TR P. Nbqjirxj009ey/sTR Peak Gr.23mmHg LEFT VENTRICLE The left ventricle is normal size. There is moderate to moderately severe concentric left ventricular hypertrophy. The left ventricular systolic function is normal and the ejection fraction is within no rmal range LV ejection fraction of 55 to 60%. There is normal LV segmental wall motion. No left ventr icle thrombus noted on this study. There is no ventricular septal defect visualized. There is no left ventricular aneurysm. There is no mass noted in the left ventricle. RIGHT VENTRICLE The right ventricle is normal size. There is normal right ventricular wall thickness. The right ventr icular systolic function is normal. ATRIA The left atrium is moderately dilated. The right atrium size is normal. AORTIC VALVE The aortic valve is calcified but opens well. Doppler and Color Flow revealed no significant aortic r egurgitation. There is no significant aortic valvular stenosis. There is no aortic valvular vegetatio n. MITRAL VALVE The mitral valve is thickened but opens well. There is no evidence of mitral valve prolapse. There is no mitral valve stenosis. Doppler and Color-flow revealed trace to mild mitral regurgitation. TRICUSPID VALVE The tricuspid valve is normal in structure and function. Doppler and Color Flow revealed trace to mil d tricuspid regurgitation. The PA pressure was estimated at 30 mmHg. There is no tricuspid valve prol apse or vegetation. There is no tricuspid valve stenosis. PULMONIC VALVE The pulmonary valve is normal in structure and function. Doppler and Color Flow revealed no pulmonic valvular regurgitation. There is no pulmonic valvular stenosis. GREAT VESSELS The aortic root is normal in size. The ascending aorta is normal in size. The pulmonary artery is nor mal. The IVC is normal in size and collapses >50% with inspiration. PERICARDIAL EFFUSION There is no pleural effusion. There is no evidence of significant pericardial effusion. Critical Notification Critical Value: No <Conclusion> The left ventricle is normal size. The left ventricular systolic function is normal and the ejection fraction is within normal range LV ejection fraction of 55 to 60%. There is moderate to moderately severe concentric left ventricular hypertrophy. Doppler and Color Flow revealed no significant aortic regurgitation. There is no significant aortic valvular stenosis. Doppler and Color-flow revealed trace to mild mitral regurgitation. Doppler and Color Flow revealed trace to mild tricuspid regurgitation. The PA pressure was estimated at 30 mmHg. Signed by : Michel Saha MD Electronically Approved : 10/12/2021 16:48:17
[2021-10-12] MEDS: APIXABAN 5 MG TABLET. PO SCH (17:41)
--- NOTE | 2021-10-12 19:45 | NUR ---
Pt in bed assessment completed vss pt denied pain at this time will resume care. Call light in reach.
[2021-10-12] MEDS: SIMVASTATIN 40 MG TABLET. PO SCH (21:22)
[2021-10-12] MEDS: CITALOPRAM 20 MG TABLET. PO SCH (21:23)
[2021-10-13] VITALS (9 sets, daily range): BP systolic 152–199; BP diastolic 85–106
[2021-10-13] MEDS: LABETALOL 20 MG/4 ML DISP.SYRIN. IVP PRN (02:23)
[2021-10-13] MEDS: LEVOTHYROXINE 75 MCG TABLET PO SCH (06:10)
[2021-10-13] MEDS: DOCUSATE SODIUM 100 MG CAPSULE. PO SCH ×2 (08:39→20:31)
[2021-10-13] MEDS: METOPROLOL TART IMMED RELEASE 50 MG TABLET. PO SCH ×2 (08:39→20:31)
[2021-10-13] MEDS: ISOSORBIDE MONONITRATE ER 30 MG TAB.ER.24H PO SCH (08:40)
[2021-10-13] MEDS: CHOLECALCIFEROL (VITAMIN D3) 1,000 UNIT TABLET PO SCH (08:40)
[2021-10-13] MEDS: hydroCHLOROthiazide 12.5 MG CAPSULE PO SCH (08:40)
[2021-10-13] MEDS: ASPIRIN ENTERIC COATED 81 MG TABLET.DR. PO SCH (08:40)
[2021-10-13] MEDS: LOSARTAN POTASSIUM 50 MG TABLET. PO SCH (08:40)
[2021-10-13] MEDS: POTASSIUM CHLORIDE 20 MEQ TABLET.ER. PO SCH ×2 (08:41→17:00)
[2021-10-13] MEDS: cefTRIAXone IV Push 1 GM VIAL. IVP SCH (08:41)
[2021-10-13] MEDS: MULTIVITAMIN with MINERAL TABLET. PO SCH (08:41)
--- NOTE | 2021-10-13 09:51 | PDOC ---
[employer] PROGRESS NOTE Date of Service DOS: DATE: 10/13/21 TIME: 09:50 Chief Complaint Chief Complaint Chest pain with elevated troponin CAD with previous stents, AFib, hyperlipidemia, hypertension, hypothyroidism, anemia, tobacco abuse, anxiety. History of Present Illness History of Present Illness 10/13/21 Patient seen and examined WBC is elevated from yesterday, will keep her and hopefully d/c tomorrow if it goes down Will d/c to [facility] Chart reviewed Discussed with RN and case management 10/12/2021 Patient seen and examined Discussed with RN Discussed with cardiology Chart reviewed Discussed with case management Patient is going for cardiac cath today Her TSH is a little high went ahead and called pharmacy and we increased her Synthroid to 75 a day Vitals/I&O Vitals/I&O: Vital Signs Date Time Temp Pulse Resp B/P (MAP) Pulse Ox O2 Delivery O2 Flow Rate FiO2 10/13/21 08:40 69 152/89 10/13/21 07:00 97.9 18 98 Room Air 97.9 10/12/21 14:40 2.0 I & O 10/12/21 10/12/21 10/13/21 15:00 23:00 07:00 Intake Total 213 ml 180 ml 430 ml Output Total 300 ml 500 ml Balance 213 ml -120 ml -70 ml Physical Exam General: Alert, Oriented X3, Cooperative, No acute distress Heart: Other (AFIB RVR) Lungs: Clear Abdomen: Soft, No tenderness Extremities: No cyanosis Skin: No breakdown, No significant lesion Assessment and Plan Assessmemt and Plan Problems Medical Problems: (1) Atrial fibrillation with rapid ventricular response Status: Acute (2) Leukocytosis Status: Acute (3) Renal insufficiency Status: Acute Assessment Chest pain with elevated troponin Leukocytosis CAD with previous stents, AFib, hyperlipidemia, hypertension, hypothyroidism, anemia, tobacco abuse, anxiety. Plan Hope to d/c tomorrow if WBC decreases Will return to [facility] Cont Synthroid 75 a day Cardiac monitoring Continue empiric Rocephin for the leukocytosis Serial enzymes Serial EKGs Home meds DVT prophylaxis Full code Appreciate cardiology input Comment Review of Relevant I have reviewed the following items reginald (where applicable) has been applied. Medications: Current Medications Medications (Trade) Dose Ordered Sig/Merced Route PRN Reason Start Time Stop Time Status Last Admin Dose Admin Levothyroxine Sodium (Synthroid) 75 mcg DAILY06 PO 3/4/22 06:00 10/13/21 06:10 Sodium Chloride 1,000 ml @ 75 mls/hr [id number] ONCE IV 10/12/21 11:15 10/13/21 00:34 DC 10/12/21 11:19 Nitroglycerin (Nitroglycerin) 200 mcg 1X ONCE IART 10/12/21 14:30 10/12/21 14:32 DC 10/12/21 14:36 Verapamil HCl (Verapamil) 2.5 mg 1X ONCE IART 10/12/21 14:30 10/12/21 14:32 DC 10/12/21 14:38 Heparin Sodium (Porcine) (Heparin Sodium) 2,500 unit 1X ONCE IART 10/12/21 14:30 10/12/21 14:32 DC 10/12/21 14:38 Heparin Sodium/ Sodium Chloride (HEPARIN for ARTERIAL LINE FLUSH) 1,000 unit 1X ONCE IART 10/12/21 14:30 10/12/21 14:32 DC 10/12/21 14:36 Midazolam HCl (Versed) 2 mg 1X ONCE IV 10/12/21 14:30 10/12/21 14:32 DC 10/12/21 14:36 Fentanyl Citrate (Fentanyl 2ml Vial) 50 mcg 1X ONCE IV 10/12/21 14:30 10/12/21 14:32 DC 10/12/21 14:37 Iodixanol (Visipaque 320) 55 ml 1X ONCE IART 10/12/21 14:30 10/12/21 14:32 DC 10/12/21 14:36 Lidocaine HCl (Xylocaine-Mpf 1% 2ml Vial) 1 ml 1X ONCE INJ 10/12/21 14:30 10/12/21 14:32 DC 10/12/21 14:37 Nitroglycerin (Nitroglycerin) 200 mcg 1X ONCE ICAR 10/12/21 14:30 10/12/21 14:32 DC 10/12/21 14:36 Apixaban (Eliquis) 5 mg BID PO 10/12/21 16:00 10/12/21 17:41 Justifications for Admission Other Justification Right hip fracture ROSALVA SOTOMAYOR III DO Oct 13, 2021 09:51
[2021-10-13] MEDS: APIXABAN 5 MG TABLET. PO SCH ×2 (10:24→20:31)
[2021-10-13 11:49] LABS: ALBUMIN 3.7 g/dL (3.4-5.0); ALBUMIN/GLOBULIN RATIO 1.1 (1.0-1.7); CALCIUM 9.2 mg/dL (8.5-10.1); CREATININE 1.2 mg/dL (0.6-1.0); GFR 43.7; TOTAL BILIRUBIN 0.4 mg/dL (0.2-1.0); TOTAL PROTEIN 7.1 g/dL (6.4-8.2)
--- NOTE | 2021-10-13 13:58 | NUR ---
SS following up with discharge planning. SS reviewed pt chart and discussed with pt RN. Pt is [facility] resident from [facility], ; fax [phone]. Pt is currently on room air. Pt on IV Rocephin. COVID19 negative. Clinical updates phoned and faxed to [facility]. SS will continue to follow for discharge planning.
--- NOTE | 2021-10-13 15:43 | PDOC ---
MORRIS DAILEY [employer] 10/13/21 1543: CARDIO Progress Notes Date and Time Date of Service 10/13/2021 Time of Evaluation 1520 Subjective Subjective: No Chest Pain, No shortness of breath, No Palpitations Vitals Vitals Vital Signs Date Time Temp Pulse Resp B/P (MAP) Pulse Ox O2 Delivery O2 Flow Rate FiO2 10/13/21 11:00 98.1 74 18 180/88 (118) 98 Room Air 98.1 10/12/21 14:40 2.0 Weight Weight [ ] Input and Output Intake and Output Intake and Output 10/13/21 07:00 Intake Total 823 ml Output Total 800 ml Balance 23 ml Intake Oral 610 ml IV Total 213 ml Output Urine Total 800 ml Laboratory Labs Laboratory Tests Test 10/13/21 11:00 Sodium Level 141 mmol/L (136-145) Potassium Level 5.0 mmol/L (3.5-5.1) Chloride Level 104 mmol/L (98-107) Carbon Dioxide Level 25 mmol/L (21-32) Anion Gap 12 (6-14) Blood Urea Nitrogen 16 mg/dL (7-20) Creatinine 1.2 mg/dL (0.6-1.0) Estimated GFR (Cockcroft-Gault) 43.7 BUN/Creatinine Ratio 13 (6-20) Glucose Level 106 mg/dL (70-99) Calcium Level 9.2 mg/dL (8.5-10.1) Total Bilirubin 0.4 mg/dL (0.2-1.0) Aspartate Amino Transf (AST/SGOT) 14 U/L (15-37) Alanine Aminotransferase (ALT/SGPT) 11 U/L (14-59) Alkaline Phosphatase 84 U/L (46-116) Total Protein 7.1 g/dL (6.4-8.2) Albumin 3.7 g/dL (3.4-5.0) Albumin/Globulin Ratio 1.1 (1.0-1.7) Physical Exam HEENT: Neck Supple W Full Motion Chest: Symmetric LUNGS: Clear to Auscultation Heart: S1S2, irregularly irregular (AFIB) Abdomen: Soft N/T Extremities: No Edema, No Calf Tenderness Neurology: alert, oriented, follow commands Assessment Assessment 1. NSTEMI: LHC revealed 3VD with patent stents in the LAD and circumflex 2. HTN urgency: labile 3. AFIB RVR: paroxysmal by hx, now rate controlled 4. HLP 5. Chronic diastolic CHF; compensated 6. Hypothyroidism: TSH not on goal 7. CAD: past stents 8. Leukocytosis Recommendations 1. Will plan for outpatient PCI of the right coronary artery with likely orbital atherectomy. 2. Secondary prevention measures. Add norvasc if BP trend remains high. Meantime hydralazine IV PRN 3. ASA, Eliquis for stroke prevention 4. Will arrange for outpt CVN Justicifation of Admission Dx: Justifications for Admission: Justification of Admission Dx: Yes JASMEET PINTO MD 10/13/21 0291: CARDIO Progress Notes Assessment Assessment Patient seen and examined I agree with our nurse practitioners assessment and plan. NSTEMI: LHC revealed 3VD with patent stents in the LAD and circumflex. Outpatient follow-up with future PCI of the right coronary artery. Continuing present medication including aspirin. HTN urgency: labile but improved. AFIB RVR: paroxysmal by hx, now rate controlled. Continuing Eliquis. Outpatient follow-up and cardioversion. HLP. Continuing present treatment. Chronic diastolic CHF; compensated Hypothyroidism: TSH as above MORRIS DAILEY APRN Oct 13, 2021 15:43 JASMEET PINTO MD Oct 13, 2021 17:59
[2021-10-13] MEDS ORDERED: hydrALAZINE 20 MG/ML VIAL. IVP PRN (16:00)
--- NOTE | 2021-10-13 19:20 | NUR ---
Assessment completed vss poc explained pt c/o headache blood pressure elevated will medicate pt and continue to monitor.Call light in reach.
[2021-10-13] MEDS: SIMVASTATIN 40 MG TABLET. PO SCH (20:28)
[2021-10-13] MEDS: ACETAMINOPHEN 325 MG TABLET. PO PRN (20:28)
[2021-10-13] MEDS: CITALOPRAM 20 MG TABLET. PO SCH (20:31)
[2021-10-13] MEDS: ZOLPIDEM 5 MG TABLET. PO PRN (22:45)
[2021-10-14 03:04] VITALS: BP 160/100
[2021-10-14 05:39] LABS: BASO # 0.1 x10^3/uL (0.0-0.2); BASO % 1 % (0-3); EOS # 0.8 x10^3/uL (0.0-0.7); EOS % 3 % (0-3); HEMATOCRIT 44.5 % (36.0-47.0); HEMOGLOBIN 13.8 g/dL (12.0-15.5); LYMPH # 1.8 x10^3/uL (1.0-4.8); LYMPH % 8 % (24-48); MEAN CORPUSCULAR HEMOGLOBIN 21 pg (25-35); MEAN CORPUSCULAR HGB CONC 31 g/dL (31-37); MEAN CORPUSCULAR VOLUME 68 fL (79-100); MONO # 0.3 x10^3/uL (0.0-1.1); MONO % 1 % (0-9); NEUT # 20.7 x10^3/uL (1.8-7.7); NEUT % 87 % (31-73); PLATELET COUNT 524 x10^3/uL (140-400); RED BLOOD COUNT 6.53 x10^6/uL (3.50-5.40); RED CELL DISTRIBUTION WIDTH 20.8 % (11.5-14.5); WHITE BLOOD COUNT 23.7 x10^3/uL (4.0-11.0)
[2021-10-14] MEDS: LEVOTHYROXINE 75 MCG TABLET PO SCH (05:53)
[2021-10-14 07:30] VITALS: BP 119/57
[2021-10-14] MEDS: ASPIRIN ENTERIC COATED 81 MG TABLET.DR. PO SCH (08:26)
[2021-10-14] MEDS: DOCUSATE SODIUM 100 MG CAPSULE. PO SCH ×2 (08:26→20:13)
[2021-10-14] MEDS: MULTIVITAMIN with MINERAL TABLET. PO SCH (08:26)
[2021-10-14] MEDS: APIXABAN 5 MG TABLET. PO SCH ×2 (08:26→20:13)
[2021-10-14] MEDS: hydroCHLOROthiazide 12.5 MG CAPSULE PO SCH (08:26)
[2021-10-14] MEDS: METOPROLOL TART IMMED RELEASE 50 MG TABLET. PO SCH (08:27)
[2021-10-14] MEDS: ISOSORBIDE MONONITRATE ER 30 MG TAB.ER.24H PO SCH (08:27)
[2021-10-14] MEDS: POTASSIUM CHLORIDE 20 MEQ TABLET.ER. PO SCH ×2 (08:27→17:20)
[2021-10-14] MEDS: LOSARTAN POTASSIUM 50 MG TABLET. PO SCH (08:28)
[2021-10-14] MEDS: CHOLECALCIFEROL (VITAMIN D3) 1,000 UNIT TABLET PO SCH (08:29)
[2021-10-14] MEDS: cefTRIAXone IV Push 1 GM VIAL. IVP SCH (08:31)
--- NOTE | 2021-10-14 09:46 | PDOC ---
PROGRESS NOTES Date of Service: DATE: 10/14/21 TIME: 09:46 Subjective Subjective Denied any chest pain or shortness of breath Objective Objective Vital Signs Date Time Temp Pulse Resp B/P (MAP) Pulse Ox O2 Delivery O2 Flow Rate FiO2 10/14/21 08:28 173/110 10/14/21 08:00 Room Air 10/14/21 07:30 97.8 97.8 Intake and Output 10/14/21 07:00 Intake Total 400 ml Output Total 1102 ml Balance -702 ml Intake Oral 400 ml Output Urine Total 1102 ml Physical Exam Abdomen: Soft, No tenderness Heart: Other (AFIB RVR) Extremities: No cyanosis General: Alert, Oriented X3, Cooperative, No acute distress HEENT: Atraumatic, Mucous membr. moist/pink, Other (FOND DU LAC) Lungs: Clear to auscultation, Normal air movement MUSCULOSKELETAL: Osteoarthritic changes both hands Neuro: Normal speech, Sensation intact Psych/Mental Status: Mental status NL, Mood NL Skin: No breakdown, No significant lesion Assessment Assessment 1. NSTEMI: LHC revealed 3VD with patent stents in the LAD and circumflex 2. HTN urgency: labile 3. AFIB RVR: paroxysmal by hx, now rate controlled 4. HLP 5. Chronic diastolic CHF; compensated 6. Hypothyroidism: TSH not on goal 7. CAD: past stents 8. Leukocytosis Recommendations 1. Will plan for outpatient PCI of the right coronary artery with likely orbital atherectomy. 2. Secondary prevention measures. 3. ASA, Eliquis for stroke prevention 4. Will arrange for outpt CVN 5. Change metoprolol to labetalol for better blood pressure control 6. ID consulted for leukocytosis Plan Plan of Care Problems Medical Problems: (1) Atrial fibrillation with rapid ventricular response Status: Acute (2) Leukocytosis Status: Acute (3) Renal insufficiency Status: Acute Comment Review of Relevant I have reviewed the following items reginald (where applicable) has been applied. Labs Laboratory Tests Test 10/13/21 11:00 10/14/21 04:00 Sodium Level 141 mmol/L (136-145) Potassium Level 5.0 mmol/L (3.5-5.1) Chloride Level 104 mmol/L (98-107) Carbon Dioxide Level 25 mmol/L (21-32) Anion Gap 12 (6-14) Blood Urea Nitrogen 16 mg/dL (7-20) Creatinine 1.2 mg/dL (0.6-1.0) Estimated GFR (Cockcroft-Gault) 43.7 BUN/Creatinine Ratio 13 (6-20) Glucose Level 106 mg/dL (70-99) Calcium Level 9.2 mg/dL (8.5-10.1) Total Bilirubin 0.4 mg/dL (0.2-1.0) Aspartate Amino Transf (AST/SGOT) 14 U/L (15-37) Alanine Aminotransferase (ALT/SGPT) 11 U/L (14-59) Alkaline Phosphatase 84 U/L (46-116) Total Protein 7.1 g/dL (6.4-8.2) Albumin 3.7 g/dL (3.4-5.0) Albumin/Globulin Ratio 1.1 (1.0-1.7) White Blood Count 23.7 x10^3/uL (4.0-11.0) Red Blood Count 6.53 x10^6/uL (3.50-5.40) Hemoglobin 13.8 g/dL (12.0-15.5) Hematocrit 44.5 % (36.0-47.0) Mean Corpuscular Volume 68 fL (79-100) Mean Corpuscular Hemoglobin 21 pg (25-35) Mean Corpuscular Hemoglobin Concent 31 g/dL (31-37) Red Cell Distribution Width 20.8 % (11.5-14.5) Platelet Count 524 x10^3/uL (140-400) Neutrophils (%) (Auto) 87 % (31-73) Lymphocytes (%) (Auto) 8 % (24-48) Monocytes (%) (Auto) 1 % (0-9) Eosinophils (%) (Auto) 3 % (0-3) Basophils (%) (Auto) 1 % (0-3) Neutrophils # (Auto) 20.7 x10^3/uL (1.8-7.7) Lymphocytes # (Auto) 1.8 x10^3/uL (1.0-4.8) Monocytes # (Auto) 0.3 x10^3/uL (0.0-1.1) Eosinophils # (Auto) 0.8 x10^3/uL (0.0-0.7) Basophils # (Auto) 0.1 x10^3/uL (0.0-0.2) Medications Current Medications Hydralazine HCl (Apresoline Inj) 10 mg PRN Q4HRS PRN IVP ELEVATED BP, SEE COMMENTS Last administered on 10/13/21at 19:15; Start 10/13/21 at 16:00 Vitals/I & O Vital Sign - Last 24 Hours 10/13/21 10/13/21 10/13/21 10/13/21 11:00 15:00 19:10 19:15 Temp 98.1 98.2 98.1 98.2 Pulse 74 80 77 Resp 18 18 B/P (MAP) 180/88 (118) 152/85 (107) 199/103 Pulse Ox 98 98 O2 Delivery Room Air Room Air Room Air 10/13/21 10/13/21 10/13/21 10/13/21 19:18 20:31 21:30 22:48 Temp 98.0 97.4 98.0 97.4 Pulse 77 77 89 96 Resp 18 18 B/P (MAP) 199/103 (135) 199/103 188/91 (123) 163/94 (117) Pulse Ox 94 94 O2 Delivery Room Air Room Air 10/14/21 10/14/21 10/14/21 10/14/21 03:04 07:30 08:00 08:27 Temp 98.3 97.8 98.3 97.8 Pulse 76 Resp 18 B/P (MAP) 160/100 (120) 173/110 Pulse Ox 92 O2 Delivery Room Air Room Air O2 Flow Rate 10/14/21 10/14/21 08:27 08:28 B/P (MAP) 173/110 173/110 Intake and Output 10/13/21 10/13/21 10/14/21 15:00 23:00 07:00 Intake Total 100 ml 300 ml Output Total 700 ml 402 ml Balance -600 ml -102 ml DANAE UMAÑA MD Oct 14, 2021 09:46
[2021-10-14] MEDS ORDERED: FUROSEMIDE 40 MG/4 ML VIAL. IVP ONE (10:30)
[2021-10-14 11:00] VITALS: BP 216/115
--- NOTE | 2021-10-14 12:39 | PDOC ---
[facility] PROGRESS NOTE Date of Service DOS: DATE: 10/14/21 TIME: 12:37 Chief Complaint Chief Complaint Chest pain with elevated troponin CAD with previous stents, AFib, hyperlipidemia, hypertension, hypothyroidism, anemia, tobacco abuse, anxiety. History of Present Illness History of Present Illness 10/14/2021 Patient seen and examined Clinically she looks great but her white count keeps going higher its up to 23 (she has no fevers and no sign of sepsis) Blood pressure still running high Discussed with RN Chart reviewed Discussed with pharmacy We will go ahead and consult infectious disease for second opinion 10/13/21 Patient seen and examined WBC is elevated from yesterday, will keep her and hopefully d/c tomorrow if it goes down Will d/c to [facility] Chart reviewed Discussed with RN and case management 10/12/2021 Patient seen and examined Discussed with RN Discussed with cardiology Chart reviewed Discussed with case management Patient is going for cardiac cath today Her TSH is a little high went ahead and called pharmacy and we increased her Synthroid to 75 a day Vitals/I&O Vitals/I&O: Vital Signs Date Time Temp Pulse Resp B/P (MAP) Pulse Ox O2 Delivery O2 Flow Rate FiO2 10/14/21 11:00 97.6 74 16 216/115 (148) 96 Room Air 97.6 10/14/21 07:30 I & O 10/13/21 10/13/21 10/14/21 15:00 23:00 07:00 Intake Total 100 ml 300 ml Output Total 700 ml 402 ml Balance -600 ml -102 ml Physical Exam General: Alert, Oriented X3, Cooperative, No acute distress Heart: Other (AFIB RVR) Lungs: Clear Abdomen: Soft, No tenderness Extremities: No cyanosis Skin: No breakdown, No significant lesion Labs Labs: Laboratory Tests Test 10/14/21 04:00 White Blood Count 23.7 x10^3/uL (4.0-11.0) Red Blood Count 6.53 x10^6/uL (3.50-5.40) Hemoglobin 13.8 g/dL (12.0-15.5) Hematocrit 44.5 % (36.0-47.0) Mean Corpuscular Volume 68 fL (79-100) Mean Corpuscular Hemoglobin 21 pg (25-35) Mean Corpuscular Hemoglobin Concent 31 g/dL (31-37) Red Cell Distribution Width 20.8 % (11.5-14.5) Platelet Count 524 x10^3/uL (140-400) Neutrophils (%) (Auto) 87 % (31-73) Lymphocytes (%) (Auto) 8 % (24-48) Monocytes (%) (Auto) 1 % (0-9) Eosinophils (%) (Auto) 3 % (0-3) Basophils (%) (Auto) 1 % (0-3) Neutrophils # (Auto) 20.7 x10^3/uL (1.8-7.7) Lymphocytes # (Auto) 1.8 x10^3/uL (1.0-4.8) Monocytes # (Auto) 0.3 x10^3/uL (0.0-1.1) Eosinophils # (Auto) 0.8 x10^3/uL (0.0-0.7) Basophils # (Auto) 0.1 x10^3/uL (0.0-0.2) Assessment and Plan Assessmemt and Plan Problems Medical Problems: (1) Atrial fibrillation with rapid ventricular response Status: Acute (2) Leukocytosis Status: Acute (3) Renal insufficiency Status: Acute Chest pain with elevated troponin Leukocytosis CAD with previous stents, AFib, hyperlipidemia, hypertension, hypothyroidism, anemia, tobacco abuse, anxiety. Plan We will consult infectious disease for second opinion regarding the persistent leukocytosis Cont Synthroid 75 a day Cardiac monitoring Continue empiric Rocephin for the leukocytosis Serial enzymes Serial EKGs Home meds DVT prophylaxis Full code Appreciate cardiology input Hope to discharge soon Comment Review of Relevant I have reviewed the following items reginald (where applicable) has been applied. Medications: Current Medications Medications (Trade) Dose Ordered Sig/Mer[place] Route PRN Reason Start Time Stop Time Status Last Admin Dose Admin Hydralazine HCl (Apresoline Inj) 10 mg PRN Q4HRS PRN IVP ELEVATED BP, SEE COMMENTS 10/13/21 16:00 10/13/21 19:15 Furosemide (Lasix) 40 mg 1X ONCE IVP 10/14/21 10:30 10/14/21 10:31 DC 10/14/21 10:33 Justifications for Admission Other Justification Right hip fracture ROSALVA SOTOMAYOR III DO Oct 14, 2021 12:39
[2021-10-14 15:11] VITALS: BP 176/98
--- NOTE | 2021-10-14 15:54 | CONS ---
DATE OF CONSULTATION: 10/14/2021 REQUESTING PHYSICIAN: Dr. Sanchez. REASON FOR CONSULTATION: Leukocytosis. HISTORY OF PRESENT ILLNESS: This is a 76-year-old female who is a senior living resident who comes in with chest pain. The patient does have accelerated/malignant hypertension. The patient had a cardiac cath done and she does have coronary artery disease, but no intervention required. The patient has a white count, she came in with, 21,000 and is up to 23,000 now, hence consultation. The patient is getting Rocephin. The patient right now feels back to normal. Denies any nausea, vomiting, diarrhea, chest pain, shortness of breath, abdominal pain, urinary symptoms or bowel symptoms. The patient says she is ready to go back home. PAST MEDICAL HISTORY: Positive for coronary artery disease with stenting done in the past, atrial fibrillation, hyperlipidemia, hypertension, hypothyroidism, anemia. SOCIAL HISTORY: Negative for smoking, alcohol use or drug use. ALLERGIES: LISTED ALLERGIC TO AMLODIPINE, HYDRALAZINE, MORPHINE. CURRENT MEDICATIONS: Reviewed. REVIEW OF SYSTEMS: As in HPI. All other systems reviewed are negative. PHYSICAL EXAMINATION: GENERAL: Alert, oriented female, not in distress. VITAL SIGNS: Stable, afebrile. HEENT: NAD. NECK: Supple, no JVP, no lymphadenopathy. LUNGS: Clear. HEART: S1, S2, regular. ABDOMEN: Soft, nontender, no organomegaly. EXTREMITIES: No edema, cyanosis. SKIN: Unremarkable. NEUROLOGIC: The patient is alert, awake, and appropriate. No focal neurologic deficit. LABORATORY DATA: White count is 23,000, hemoglobin 13.8, platelets are 524,000. BUN and creatinine 17 and 1.2. Urinalysis is unremarkable. COVID negative. Chest x-ray is unremarkable. IMPRESSION: 1. Leukocytosis. Nothing obvious, rule out occult infection. Although the patient could have a myeloproliferative disorder. Last normal white count in our system is from 2019. 2. Chest pain. 3. Accelerated/malignant hypertension. 4. Coronary artery disease. RECOMMENDATIONS: We will get CT chest, abdomen and pelvis. Rocephin can be discontinued. Supportive care and will continue to follow. Thank you very much, Dr. Sanchez, for giving me opportunity to participate in this patient's care. GINNA/JARAD/ASIF DR: GINNA/richy TID: [id number]
[2021-10-14] MEDS: LABETALOL 20 MG/4 ML DISP.SYRIN. IVP PRN (17:20)
--- NOTE | 2021-10-14 17:38 | RAD ---
Exam Date: 10/14/2021 2:[address] CHEST_ABDOMEN_ AND PELVIS WITHOUT CONTRAST Indication: Reason: leukocytosis / Spl. Instructions: / History: . TECHNIQUE: CT scan of the chest was performed without intravenous contrast. One or more of the fo llowing dose reduction techniques were utilized: *Automated exposure control (AEC) *Adjustment of mA and/or kV according to patient size *Use of iterative reconstruction technique *CT scan done according to ALARA, or ALARA/IMAGE GENTLY FINDINGS: The central airways are patent. There is no focal consolidation, pleural effusion or pneumothorax. Calcified granulomas are seen in the lungs. Mild subsegmental atelectasis and/or scarring is seen bi laterally. The visualized thyroid gland is within normal limits. No lymphadenopathy is seen. Calcified mediastinal and hilar level noted. Aorta is normal in caliber with atherosclerotic calcifications. The heart is enlarged without pericardial effusion. Coronary artery calcifications are present. Degenerative changes are seen in the spine. IMPRESSION: Mild subsegmental atelectasis and/or scarring. Evidence of prior granulomatous disease. Cardiomegal y. Exam Date: 10/14/2021 2:[address] CHEST_ABDOMEN_ AND PELVIS WITHOUT CONTRAST Indication: Reason: leukocytosis / Spl. Instructions: / History: . TECHNIQUE: CT examination of the abdomen and pelvis was performed without intravenous contrast. One or more of the following dose reduction techniques were utilized: *Automated exposure control (AEC) *Adjustment of mA and/or kV according to patient size *Use of iterative reconstruction technique *CT scan done according to ALARA, or ALARA/IMAGE GENTLY FINDINGS: Calcified granulomas are seen in the liver and spleen. The liver, gallbladder, spleen, pancreas, adrenal glands and kidneys are normal. Urinary bladder is normal in appearance. There is no bowel obstruction or inflammation. No evidence of acute appendicitis. Moderate atherosclerotic calcifications are seen. No lymphadenopathy is seen. Small free fluid is s een in the pelvis. Degenerative changes are seen in the spine. IMPRESSION: No evidence of acute intra-abdominal pathology. Electronically signed by: Barry Costello MD (10/14/2021 5:36 PM) [email or web address]
[2021-10-14 19:00] VITALS: BP 152/107
--- NOTE | 2021-10-14 19:05 | NUR ---
Pt in bed assessment completed vss poc explained pt denied pain call light in reach will resume care and continue to monitor pt.
[2021-10-14] MEDS: LABETALOL HCL 200 MG TABLET PO SCH (20:13)
[2021-10-14] MEDS: SIMVASTATIN 40 MG TABLET. PO SCH (20:13)
[2021-10-14] MEDS: CITALOPRAM 20 MG TABLET. PO SCH (20:14)
[2021-10-14] MEDS: ZOLPIDEM 5 MG TABLET. PO PRN (22:00)
[2021-10-14 22:49] VITALS: BP 147/93
[2021-10-15] VITALS (7 sets, daily range): BP systolic 89–173; BP diastolic 53–96
[2021-10-15 05:23] LABS: BASO # 0.2 x10^3/uL (0.0-0.2); BASO % 1 % (0-3); EOS # 0.8 x10^3/uL (0.0-0.7); EOS % 3 % (0-3); HEMATOCRIT 45.4 % (36.0-47.0); HEMOGLOBIN 13.9 g/dL (12.0-15.5); LYMPH # 1.9 x10^3/uL (1.0-4.8); LYMPH % 9 % (24-48); MEAN CORPUSCULAR HEMOGLOBIN 21 pg (25-35); MEAN CORPUSCULAR HGB CONC 31 g/dL (31-37); MEAN CORPUSCULAR VOLUME 68 fL (79-100); MONO # 0.3 x10^3/uL (0.0-1.1); MONO % 1 % (0-9); NEUT # 19.2 x10^3/uL (1.8-7.7); NEUT % 86 % (31-73); PLATELET COUNT 481 x10^3/uL (140-400); RED BLOOD COUNT 6.73 x10^6/uL (3.50-5.40); RED CELL DISTRIBUTION WIDTH 20.5 % (11.5-14.5); WHITE BLOOD COUNT 22.4 x10^3/uL (4.0-11.0)
[2021-10-15] MEDS: LEVOTHYROXINE 75 MCG TABLET PO SCH (06:08)
--- NOTE | 2021-10-15 08:29 | PDOC ---
PROGRESS NOTES Date of Service: DATE: 10/15/21 TIME: 08:29 Subjective Subjective No new complaints Objective Objective Vital Signs Date Time Temp Pulse Resp B/P (MAP) Pulse Ox O2 Delivery O2 Flow Rate FiO2 10/15/21 07:59 Room Air 10/15/21 07:00 97.9 89 13 173/96 (121) 97 97.9 10/14/21 07:30 Intake and Output 10/15/21 07:00 Intake Total 170 ml Balance 170 ml Intake Oral 170 ml Physical Exam Abdomen: Soft, No tenderness Heart: Other (AFIB RVR) Extremities: No cyanosis General: Alert, Oriented X3, Cooperative, No acute distress HEENT: Atraumatic, Mucous membr. moist/pink, Other (VENETIE IRA) Lungs: Clear to auscultation, Normal air movement MUSCULOSKELETAL: Osteoarthritic changes both hands Neuro: Normal speech, Sensation intact Psych/Mental Status: Mental status NL, Mood NL Skin: No breakdown, No significant lesion Assessment Assessment 1. NSTEMI: LHC revealed 3VD with patent stents in the LAD and circumflex 2. HTN urgency: Better controlled 3. AFIB RVR: paroxysmal by hx, now rate controlled 4. HLP 5. Chronic diastolic CHF; compensated 6. Hypothyroidism: TSH not on goal 7. CAD: past stents 8. Leukocytosis Recommendations 1. Will plan for outpatient PCI of the right coronary artery with likely orbital atherectomy. 2. Secondary prevention measures. 3. ASA, Eliquis for stroke prevention 4. Will arrange for outpt CVN 5. ID following for for leukocytosis Plan Plan of Care Problems Medical Problems: (1) Atrial fibrillation with rapid ventricular response Status: Acute (2) Leukocytosis Status: Acute (3) Renal insufficiency Status: Acute Comment Review of Relevant I have reviewed the following items reginald (where applicable) has been applied. Labs Laboratory Tests Test 10/15/21 03:30 White Blood Count 22.4 x10^3/uL (4.0-11.0) Red Blood Count 6.73 x10^6/uL (3.50-5.40) Hemoglobin 13.9 g/dL (12.0-15.5) Hematocrit 45.4 % (36.0-47.0) Mean Corpuscular Volume 68 fL (79-100) Mean Corpuscular Hemoglobin 21 pg (25-35) Mean Corpuscular Hemoglobin Concent 31 g/dL (31-37) Red Cell Distribution Width 20.5 % (11.5-14.5) Platelet Count 481 x10^3/uL (140-400) Neutrophils (%) (Auto) 86 % (31-73) Lymphocytes (%) (Auto) 9 % (24-48) Monocytes (%) (Auto) 1 % (0-9) Eosinophils (%) (Auto) 3 % (0-3) Basophils (%) (Auto) 1 % (0-3) Neutrophils # (Auto) 19.2 x10^3/uL (1.8-7.7) Lymphocytes # (Auto) 1.9 x10^3/uL (1.0-4.8) Monocytes # (Auto) 0.3 x10^3/uL (0.0-1.1) Eosinophils # (Auto) 0.8 x10^3/uL (0.0-0.7) Basophils # (Auto) 0.2 x10^3/uL (0.0-0.2) Medications Current Medications Furosemide (Lasix) 40 mg 1X ONCE IVP Last administered on 10/14/21at 10:33; Start 10/14/21 at 10:30; Stop 10/14/21 at 10:31; Status DC Labetalol HCl (Trandate) 200 mg BID PO Last administered on 10/14/21at 20:13; Start 10/14/21 at 21:00 Vitals/I & O Vital Sign - Last 24 Hours 10/14/21 10/14/21 10/14/21 10/14/21 11:00 15:11 17:20 19:00 Temp 97.6 97.7 98.4 97.6 97.7 98.4 Pulse 74 76 76 86 Resp 16 16 18 B/P (MAP) 216/115 (148) 176/98 (124) 176/98 152/107 (122) Pulse Ox 96 96 94 O2 Delivery Room Air Room Air Room Air 10/14/21 10/14/21 10/14/21 10/15/21 19:05 20:13 22:49 02:34 Temp 98.7 97.7 98.7 97.7 Pulse 86 99 109 Resp 16 19 B/P (MAP) 152/107 147/93 (111) 159/87 (111) Pulse Ox 94 99 O2 Delivery Room Air Room Air Room Air 10/15/21 10/15/21 07:00 07:59 Temp 97.9 97.9 Pulse 89 Resp 13 B/P (MAP) 173/96 (121) Pulse Ox 97 O2 Delivery Room Air Room Air Intake and Output 10/14/21 10/14/21 10/15/21 15:00 23:00 07:00 Intake Total 120 ml 50 ml Balance 120 ml 50 ml DANAE UMAÑA MD Oct 15, 2021 08:29
[2021-10-15] MEDS: POTASSIUM CHLORIDE 20 MEQ TABLET.ER. PO SCH ×2 (08:41→17:07)
[2021-10-15] MEDS: DOCUSATE SODIUM 100 MG CAPSULE. PO SCH ×2 (08:41→20:06)
[2021-10-15] MEDS: MULTIVITAMIN with MINERAL TABLET. PO SCH (08:41)
[2021-10-15] MEDS: ASPIRIN ENTERIC COATED 81 MG TABLET.DR. PO SCH (08:41)
[2021-10-15] MEDS: CHOLECALCIFEROL (VITAMIN D3) 1,000 UNIT TABLET PO SCH (08:41)
[2021-10-15] MEDS: hydroCHLOROthiazide 12.5 MG CAPSULE PO SCH (08:41)
[2021-10-15] MEDS: APIXABAN 5 MG TABLET. PO SCH ×2 (08:41→20:05)
[2021-10-15] MEDS: ISOSORBIDE MONONITRATE ER 30 MG TAB.ER.24H PO SCH (08:42)
[2021-10-15] MEDS: LABETALOL HCL 200 MG TABLET PO SCH ×2 (08:42→20:05)
[2021-10-15] MEDS: LOSARTAN POTASSIUM 50 MG TABLET. PO SCH (08:42)
[2021-10-15] MEDS ORDERED: FUROSEMIDE 40 MG/4 ML VIAL. IVP ONE (10:15)
--- NOTE | 2021-10-15 12:16 | PDOC ---
[employer] [facility] PROGRESS NOTE Date of Service DOS: DATE: 10/15/21 TIME: 12:15 Chief Complaint Chief Complaint Chest pain with elevated troponin CAD with previous stents, AFib, hyperlipidemia, hypertension, hypothyroidism, anemia, tobacco abuse, anxiety. History of Present Illness History of Present Illness 10/15/2021 Patient seen and examined She is resting with no apparent distress Discussed with RN Chart reviewed White count down to 22 Pressures are improving she still at 170 low I ordered another dose of IV Lasix 10/14/2021 Patient seen and examined Clinically she looks great but her white count keeps going higher its up to 23 (she has no fevers and no sign of sepsis) Blood pressure still running high Discussed with RN Chart reviewed Discussed with pharmacy We will go ahead and consult infectious disease for second opinion 10/13/21 Patient seen and examined WBC is elevated from yesterday, will keep her and hopefully d/c tomorrow if it goes down Will d/c to [facility] Chart reviewed Discussed with RN and case management 10/12/2021 Patient seen and examined Discussed with RN Discussed with cardiology Chart reviewed Discussed with case management Patient is going for cardiac cath today Her TSH is a little high went ahead and called pharmacy and we increased her Synthroid to 75 a day Vitals/I&O Vitals/I&O: Vital Signs Date Time Temp Pulse Resp B/P (MAP) Pulse Ox O2 Delivery O2 Flow Rate FiO2 10/15/21 11:00 98.6 82 13 119/76 (90) 96 Room Air 98.6 10/14/21 07:30 I & O 10/14/21 10/14/21 10/15/21 15:00 23:00 07:00 Intake Total 120 ml 50 ml Balance 120 ml 50 ml Physical Exam General: Alert, Oriented X3, Cooperative, No acute distress Heart: Other (AFIB RVR) Lungs: Clear Abdomen: Soft, No tenderness Extremities: No cyanosis Skin: No breakdown, No significant lesion Labs Labs: Laboratory Tests Test 10/15/21 03:30 White Blood Count 22.4 x10^3/uL (4.0-11.0) Red Blood Count 6.73 x10^6/uL (3.50-5.40) Hemoglobin 13.9 g/dL (12.0-15.5) Hematocrit 45.4 % (36.0-47.0) Mean Corpuscular Volume 68 fL (79-100) Mean Corpuscular Hemoglobin 21 pg (25-35) Mean Corpuscular Hemoglobin Concent 31 g/dL (31-37) Red Cell Distribution Width 20.5 % (11.5-14.5) Platelet Count 481 x10^3/uL (140-400) Neutrophils (%) (Auto) 86 % (31-73) Lymphocytes (%) (Auto) 9 % (24-48) Monocytes (%) (Auto) 1 % (0-9) Eosinophils (%) (Auto) 3 % (0-3) Basophils (%) (Auto) 1 % (0-3) Neutrophils # (Auto) 19.2 x10^3/uL (1.8-7.7) Lymphocytes # (Auto) 1.9 x10^3/uL (1.0-4.8) Monocytes # (Auto) 0.3 x10^3/uL (0.0-1.1) Eosinophils # (Auto) 0.8 x10^3/uL (0.0-0.7) Basophils # (Auto) 0.2 x10^3/uL (0.0-0.2) Assessment and Plan Assessmemt and Plan Problems Medical Problems: (1) Atrial fibrillation with rapid ventricular response Status: Acute (2) Leukocytosis Status: Acute (3) Renal insufficiency Status: Acute Chest pain with elevated troponin Leukocytosis CAD with previous stents, AFib, hyperlipidemia, hypertension, hypothyroidism, anemia, tobacco abuse, anxiety. Plan Appreciate infectious disease input Gave another dose of IV Lasix Appreciate cardiology input and will continue the other antihypertensives Cont Synthroid 75 a day Cardiac monitoring Continue empiric Rocephin for the leukocytosis Serial enzymes Serial EKGs Home meds DVT prophylaxis Full code Hope to discharge soon Comment Review of Relevant I have reviewed the following items reginald (where applicable) has been applied. Medications: Current Medications Medications (Trade) Dose Ordered Sig/[place] Route PRN Reason Start Time Stop Time Status Last Admin Dose Admin Labetalol HCl (Trandate) 200 mg BID PO 10/14/21 21:00 10/15/21 08:42 Furosemide (Lasix) 40 mg 1X ONCE IVP 10/15/21 10:15 10/15/21 10:17 DC 10/15/21 11:06 Justifications for Admission Other Justification Right hip fracture CASTLE,NIAL K III DO Oct 15, 2021 12:16
--- NOTE | 2021-10-15 12:51 | PDOC ---
Infectious Disease Note Subjective: Subjective Pt says has nausea today no vomiting Denies headache, sore throat, difficulty swallowing fever, vomiting, shortness of breath, diarrhea, abdominal pain,, symptoms or joint pain rash Otherwise as above Vital Signs: Vital Signs Vital Signs Date Time Temp Pulse Resp B/P (MAP) Pulse Ox O2 Delivery O2 Flow Rate FiO2 10/15/21 11:00 98.6 82 13 119/76 (90) 96 Room Air 98.6 10/14/21 07:30 Physical Exam: PHYSICAL EXAM GENERAL: Alert, oriented female, not in distress. HEENT: no icterus, oral lesions, normocephalic atraumatic NECK: Supple, no JVP, no lymphadenopathy. LUNGS: Clear. HEART: S1, S2, regular. ABDOMEN: Soft, nontender, no organomegaly. EXTREMITIES: No edema, cyanosis. SKIN: Unremarkable. NEUROLOGIC: The patient is alert, awake, and appropriate. No focal neurologic deficit. Medications: Inpatient Meds: Medications reviewed. Labs: Lab Laboratory Tests Test 10/15/21 03:30 White Blood Count 22.4 x10^3/uL (4.0-11.0) Red Blood Count 6.73 x10^6/uL (3.50-5.40) Hemoglobin 13.9 g/dL (12.0-15.5) Hematocrit 45.4 % (36.0-47.0) Mean Corpuscular Volume 68 fL (79-100) Mean Corpuscular Hemoglobin 21 pg (25-35) Mean Corpuscular Hemoglobin Concent 31 g/dL (31-37) Red Cell Distribution Width 20.5 % (11.5-14.5) Platelet Count 481 x10^3/uL (140-400) Neutrophils (%) (Auto) 86 % (31-73) Lymphocytes (%) (Auto) 9 % (24-48) Monocytes (%) (Auto) 1 % (0-9) Eosinophils (%) (Auto) 3 % (0-3) Basophils (%) (Auto) 1 % (0-3) Neutrophils # (Auto) 19.2 x10^3/uL (1.8-7.7) Lymphocytes # (Auto) 1.9 x10^3/uL (1.0-4.8) Monocytes # (Auto) 0.3 x10^3/uL (0.0-1.1) Eosinophils # (Auto) 0.8 x10^3/uL (0.0-0.7) Basophils # (Auto) 0.2 x10^3/uL (0.0-0.2) Objective: Assessment: 1. Leukocytosis. No obvious signs or symptoms of localizing infection at this time patient could have a myeloproliferative disorder though last white count in our system is normal from 2019. 2. Chest pain. 3. Accelerated/malignant hypertension. 4. Coronary artery disease. Plan: Plan of Care CT chest, abdomen and pelvis nonrevealing for acute abnormalities Leukocytosis could be reactive Monitor off antibiotics Trend WBC If WBC remains elevated consider hematology consult Cont Supportive care Discussed with MIGUEL ÁNGEL JUÁREZ MD Oct 15, 2021 12:51
[2021-10-15] MEDS: ZOLPIDEM 5 MG TABLET. PO PRN (20:05)
[2021-10-15] MEDS: CITALOPRAM 20 MG TABLET. PO SCH (20:05)
[2021-10-15] MEDS: SIMVASTATIN 40 MG TABLET. PO SCH (20:05)
[2021-10-15] MEDS: CALCIUM CARBONATE 500 MG TAB.CHEW PO PRN (20:09)
[2021-10-16 02:18] VITALS: BP 130/60
[2021-10-16] MEDS: LEVOTHYROXINE 75 MCG TABLET PO SCH (04:31)
[2021-10-16 05:19] LABS: BASO # 0.1 x10^3/uL (0.0-0.2); BASO % 1 % (0-3); EOS # 0.8 x10^3/uL (0.0-0.7); EOS % 4 % (0-3); HEMATOCRIT 43.7 % (36.0-47.0); HEMOGLOBIN 13.3 g/dL (12.0-15.5); LYMPH # 2.1 x10^3/uL (1.0-4.8); LYMPH % 10 % (24-48); MEAN CORPUSCULAR HEMOGLOBIN 21 pg (25-35); MEAN CORPUSCULAR HGB CONC 30 g/dL (31-37); MEAN CORPUSCULAR VOLUME 70 fL (79-100); MONO # 0.3 x10^3/uL (0.0-1.1); MONO % 1 % (0-9); NEUT # 18.4 x10^3/uL (1.8-7.7); NEUT % 85 % (31-73); PLATELET COUNT 465 x10^3/uL (140-400); RED BLOOD COUNT 6.29 x10^6/uL (3.50-5.40); RED CELL DISTRIBUTION WIDTH 21.1 % (11.5-14.5); WHITE BLOOD COUNT 21.7 x10^3/uL (4.0-11.0)
[2021-10-16 05:34] LABS: CALCIUM 9.4 mg/dL (8.5-10.1); CREATININE 2.1 mg/dL (0.6-1.0); GFR 22.9; POTASSIUM 5.5 mmol/L (3.5-5.1)
[2021-10-16 07:00] VITALS: BP 125/59
[2021-10-16] MEDS: POTASSIUM CHLORIDE 20 MEQ TABLET.ER. PO SCH ×2 (08:00→09:29)
[2021-10-16] MEDS: ASPIRIN ENTERIC COATED 81 MG TABLET.DR. PO SCH (09:29)
[2021-10-16] MEDS: MULTIVITAMIN with MINERAL TABLET. PO SCH (09:29)
[2021-10-16] MEDS: hydroCHLOROthiazide 12.5 MG CAPSULE PO SCH (09:30)
[2021-10-16] MEDS: ISOSORBIDE MONONITRATE ER 30 MG TAB.ER.24H PO SCH (09:30)
[2021-10-16] MEDS: LABETALOL HCL 200 MG TABLET PO SCH ×2 (09:30→20:49)
[2021-10-16] MEDS: DOCUSATE SODIUM 100 MG CAPSULE. PO SCH ×2 (09:30→20:48)
[2021-10-16] MEDS: CHOLECALCIFEROL (VITAMIN D3) 1,000 UNIT TABLET PO SCH (09:30)
[2021-10-16] MEDS: APIXABAN 5 MG TABLET. PO SCH (09:31)
[2021-10-16] MEDS: LOSARTAN POTASSIUM 50 MG TABLET. PO SCH (09:31)
[2021-10-16 10:31] VITALS: BP 103/50
--- NOTE | 2021-10-16 10:41 | PDOC ---
[facility] [facility] PROGRESS NOTE Date of Service DOS: DATE: 10/16/21 TIME: 10:40 Chief Complaint Chief Complaint Chest pain with elevated troponin CAD with previous stents, AFib, hyperlipidemia, hypertension, hypothyroidism, anemia, tobacco abuse, anxiety. History of Present Illness History of Present Illness 10/16/2021 Patient seen and examined Discussed with RN Chart reviewed White count is down to 21.7 Blood pressures have normalized 10/15/2021 Patient seen and examined She is resting with no apparent distress Discussed with RN Chart reviewed White count down to 22 Pressures are improving she still at 170 low I ordered another dose of IV Lasix 10/14/2021 Patient seen and examined Clinically she looks great but her white count keeps going higher its up to 23 (she has no fevers and no sign of sepsis) Blood pressure still running high Discussed with RN Chart reviewed Discussed with pharmacy We will go ahead and consult infectious disease for second opinion 10/13/21 Patient seen and examined WBC is elevated from yesterday, will keep her and hopefully d/c tomorrow if it goes down Will d/c to [facility] Chart reviewed Discussed with RN and case management 10/12/2021 Patient seen and examined Discussed with RN Discussed with cardiology Chart reviewed Discussed with case management Patient is going for cardiac cath today Her TSH is a little high went ahead and called pharmacy and we increased her Synthroid to 75 a day Vitals/I&O Vitals/I&O: Vital Signs Date Time Temp Pulse Resp B/P (MAP) Pulse Ox O2 Delivery O2 Flow Rate FiO2 10/16/21 10:31 98.0 61 18 103/50 (67) 91 Room Air 98.0 10/16/21 08:00 2.0 I & O 10/15/21 10/15/21 10/16/21 15:00 23:00 07:00 Intake Total 100 ml Output Total 500 ml Balance -500 ml 100 ml Physical Exam Physical Exam: GENERAL: Alert, oriented female, not in distress. HEENT: no icterus, oral lesions, normocephalic atraumatic NECK: Supple, no JVP, no lymphadenopathy. LUNGS: Clear. HEART: S1, S2, regular. ABDOMEN: Soft, nontender, no organomegaly. EXTREMITIES: No edema, cyanosis. SKIN: Unremarkable. NEUROLOGIC: The patient is alert, awake, and appropriate. No focal neurologic deficit. General: Alert, Oriented X3, Cooperative, No acute distress Heart: Other (AFIB RVR) Lungs: Clear Abdomen: Soft, No tenderness Extremities: No cyanosis Skin: No breakdown, No significant lesion Labs Labs: Laboratory Tests Test 10/16/21 04:35 White Blood Count 21.7 x10^3/uL (4.0-11.0) Red Blood Count 6.29 x10^6/uL (3.50-5.40) Hemoglobin 13.3 g/dL (12.0-15.5) Hematocrit 43.7 % (36.0-47.0) Mean Corpuscular Volume 70 fL (79-100) Mean Corpuscular Hemoglobin 21 pg (25-35) Mean Corpuscular Hemoglobin Concent 30 g/dL (31-37) Red Cell Distribution Width 21.1 % (11.5-14.5) Platelet Count 465 x10^3/uL (140-400) Neutrophils (%) (Auto) 85 % (31-73) Lymphocytes (%) (Auto) 10 % (24-48) Monocytes (%) (Auto) 1 % (0-9) Eosinophils (%) (Auto) 4 % (0-3) Basophils (%) (Auto) 1 % (0-3) Neutrophils # (Auto) 18.4 x10^3/uL (1.8-7.7) Lymphocytes # (Auto) 2.1 x10^3/uL (1.0-4.8) Monocytes # (Auto) 0.3 x10^3/uL (0.0-1.1) Eosinophils # (Auto) 0.8 x10^3/uL (0.0-0.7) Basophils # (Auto) 0.1 x10^3/uL (0.0-0.2) Sodium Level 139 mmol/L (136-145) Potassium Level 5.5 mmol/L (3.5-5.1) Chloride Level 99 mmol/L (98-107) Carbon Dioxide Level 29 mmol/L (21-32) Anion Gap 11 (6-14) Blood Urea Nitrogen 27 mg/dL (7-20) Creatinine 2.1 mg/dL (0.6-1.0) Estimated GFR (Cockcroft-Gault) 22.9 Glucose Level 103 mg/dL (70-99) Calcium Level 9.4 mg/dL (8.5-10.1) Assessment and Plan Assessmemt and Plan Problems Medical Problems: (1) Atrial fibrillation with rapid ventricular response Status: Acute (2) Leukocytosis Status: Acute (3) Renal insufficiency Status: Acute Chest pain with elevated troponin Leukocytosis CAD with previous stents, AFib, hyperlipidemia, hypertension, hypothyroidism, anemia, tobacco abuse, anxiety. Plan Appreciate infectious disease input Appreciate cardiology input and will continue theantihypertensives Cont Synthroid 75 a day Trend labs Cardiac monitoring Continue empiric Rocephin for the leukocytosis Serial enzymes Serial EKGs Home meds DVT prophylaxis Full code Hope to discharge soon if white count continues to trend down Comment Review of Relevant I have reviewed the following items reginald (where applicable) has been applied. Justifications for Admission Other Justification Right hip fracture ROSALVA SOTOMAYOR III DO Oct 16, 2021 10:41
--- NOTE | 2021-10-16 11:04 | PDOC ---
HILDA PADILLA [employer] 10/16/21 1104: CARDIO Progress Notes Date and Time Date of Service 10/16/21 Time of Evaluation 1100 Subjective Subjective: No Chest Pain, No shortness of breath, No Palpitations Vitals Vitals Vital Signs Date Time Temp Pulse Resp B/P (MAP) Pulse Ox O2 Delivery O2 Flow Rate FiO2 10/16/21 10:31 98.0 61 18 103/50 (67) 91 Room Air 98.0 10/16/21 08:00 2.0 Weight Weight [ ] Input and Output Intake and Output Intake and Output 10/16/21 06:59 Intake Total 100 ml Output Total 500 ml Balance -400 ml Intake Oral 100 ml Output Urine Total 500 ml # Voids 1 # Bowel Movements 1 Laboratory Labs Laboratory Tests Test 10/16/21 04:35 White Blood Count 21.7 x10^3/uL (4.0-11.0) Red Blood Count 6.29 x10^6/uL (3.50-5.40) Hemoglobin 13.3 g/dL (12.0-15.5) Hematocrit 43.7 % (36.0-47.0) Mean Corpuscular Volume 70 fL (79-100) Mean Corpuscular Hemoglobin 21 pg (25-35) Mean Corpuscular Hemoglobin Concent 30 g/dL (31-37) Red Cell Distribution Width 21.1 % (11.5-14.5) Platelet Count 465 x10^3/uL (140-400) Neutrophils (%) (Auto) 85 % (31-73) Lymphocytes (%) (Auto) 10 % (24-48) Monocytes (%) (Auto) 1 % (0-9) Eosinophils (%) (Auto) 4 % (0-3) Basophils (%) (Auto) 1 % (0-3) Neutrophils # (Auto) 18.4 x10^3/uL (1.8-7.7) Lymphocytes # (Auto) 2.1 x10^3/uL (1.0-4.8) Monocytes # (Auto) 0.3 x10^3/uL (0.0-1.1) Eosinophils # (Auto) 0.8 x10^3/uL (0.0-0.7) Basophils # (Auto) 0.1 x10^3/uL (0.0-0.2) Sodium Level 139 mmol/L (136-145) Potassium Level 5.5 mmol/L (3.5-5.1) Chloride Level 99 mmol/L (98-107) Carbon Dioxide Level 29 mmol/L (21-32) Anion Gap 11 (6-14) Blood Urea Nitrogen 27 mg/dL (7-20) Creatinine 2.1 mg/dL (0.6-1.0) Estimated GFR (Cockcroft-Gault) 22.9 Glucose Level 103 mg/dL (70-99) Calcium Level 9.4 mg/dL (8.5-10.1) Physical Exam HEENT: Neck Supple W Full Motion Chest: Symmetric LUNGS: Clear to Auscultation Heart: S1S2, RRR (SR) Abdomen: Soft N/T Extremities: No Edema, No Calf Tenderness Neurology: alert, oriented, follow commands Assessment Assessment 1. NSTEMI: LHC revealed 3VD with patent stents in the LAD and circumflex 2. HTN urgency: now controlled 3. AFIB RVR: paroxysmal by hx. presently SR 4. HLP; statin 5. Chronic diastolic CHF; compensated 6. Hypothyroidism: TSH not on goal 7. CAD: past stents 8. Leukocytosis; ID following 9. SHASHANK, hyperkalemia; ARB, HCTZ held Recommendations Secondary prevention measures. ASA therapy. Eliquis for stroke prevention Will plan for outpatient PCI of the right coronary artery with likely orbital atherectomy. Monitor renal function Supportive care Justicifation of Admission Dx: Justifications for Admission: Justification of Admission Dx: Yes JASMEET PINTO MD 10/16/21 1651: CARDIO Progress Notes Assessment Assessment Patient seen and examined She reports increased nausea today. NSTEMI: LHC revealed 3VD with patent stents in the LAD and circumflex. Future intervention in the RCA. HTN urgency: now controlled AFIB RVR: paroxysmal by hx. presently SR HLP; statin Chronic diastolic CHF; compensated Hypothyroidism: TSH not on goal Leukocytosis; ID following SHASHANK, hyperkalemia; ARB, HCTZ held Increasing nausea. Continue present medications. Evaluation is in progress. HILDA PADILLA APRN Oct 16, 2021 11:04 JASMEET PINTO MD Oct 16, 2021 16:51
[2021-10-16] MEDS ORDERED: ONDANSETRON PF 4 MG/2 ML VIAL. IVP PRN (12:00)
--- NOTE | 2021-10-16 13:35 | PDOC ---
Infectious Disease Note Subjective: Subjective Pt says has nausea and vomiting today Had constipation but now is having bowel movement with stool softeners. Denies headache, sore throat, difficulty swallowing fever, vomiting, shortness of breath, diarrhea, abdominal pain,, symptoms or joint pain rash Otherwise as above Vital Signs: Vital Signs Vital Signs Date Time Temp Pulse Resp B/P (MAP) Pulse Ox O2 Delivery O2 Flow Rate FiO2 10/16/21 10:31 98.0 61 18 103/50 (67) 91 Room Air 98.0 10/16/21 08:00 2.0 Physical Exam: PHYSICAL EXAM GENERAL: Alert, oriented female, not in distress. HEENT: no icterus, oral lesions, normocephalic atraumatic NECK: Supple, no JVP, no lymphadenopathy. LUNGS: Clear. HEART: S1, S2, regular. ABDOMEN: Soft, nontender, no organomegaly. EXTREMITIES: No edema, cyanosis. SKIN: Unremarkable. NEUROLOGIC: The patient is alert, awake, and appropriate. No focal neurologic deficit. Medications: Inpatient Meds: Medications reviewed. Labs: Lab Laboratory Tests Test 10/16/21 04:35 White Blood Count 21.7 x10^3/uL (4.0-11.0) Red Blood Count 6.29 x10^6/uL (3.50-5.40) Hemoglobin 13.3 g/dL (12.0-15.5) Hematocrit 43.7 % (36.0-47.0) Mean Corpuscular Volume 70 fL (79-100) Mean Corpuscular Hemoglobin 21 pg (25-35) Mean Corpuscular Hemoglobin Concent 30 g/dL (31-37) Red Cell Distribution Width 21.1 % (11.5-14.5) Platelet Count 465 x10^3/uL (140-400) Neutrophils (%) (Auto) 85 % (31-73) Lymphocytes (%) (Auto) 10 % (24-48) Monocytes (%) (Auto) 1 % (0-9) Eosinophils (%) (Auto) 4 % (0-3) Basophils (%) (Auto) 1 % (0-3) Neutrophils # (Auto) 18.4 x10^3/uL (1.8-7.7) Lymphocytes # (Auto) 2.1 x10^3/uL (1.0-4.8) Monocytes # (Auto) 0.3 x10^3/uL (0.0-1.1) Eosinophils # (Auto) 0.8 x10^3/uL (0.0-0.7) Basophils # (Auto) 0.1 x10^3/uL (0.0-0.2) Sodium Level 139 mmol/L (136-145) Potassium Level 5.5 mmol/L (3.5-5.1) Chloride Level 99 mmol/L (98-107) Carbon Dioxide Level 29 mmol/L (21-32) Anion Gap 11 (6-14) Blood Urea Nitrogen 27 mg/dL (7-20) Creatinine 2.1 mg/dL (0.6-1.0) Estimated GFR (Cockcroft-Gault) 22.9 Glucose Level 103 mg/dL (70-99) Calcium Level 9.4 mg/dL (8.5-10.1) Objective: Assessment: 1. Leukocytosis. No obvious signs or symptoms of localizing infection at this time patient could have a myeloproliferative disorder though last white count in our system is normal from 2019. 2. Chest pain. 3. Accelerated/malignant hypertension. 4. Coronary artery disease. Plan: Plan of Care CT chest, abdomen and pelvis nonrevealing for acute abnormalities Leukocytosis could be reactive from nausea and constipation Monitor off antibiotics Trend WBC Cont Supportive care MIGUEL ÁNGEL PRASAD MD Oct 16, 2021 13:35
--- NOTE | 2021-10-16 14:22 | NUR ---
SS following up with discharge planning. SS reviewed pt chart and discussed with pt RN. Pt is currently on room air. COVID19 negative. Pt is [facility] resident from [facility], ; fax [phone]. Pt able to return to facility when medically ready for discharge. SS will continue to follow for discharge planning.
[2021-10-16] MEDS: CALCIUM CARBONATE 500 MG TAB.CHEW PO PRN (14:58)
[2021-10-16 15:00] VITALS: BP 107/64
[2021-10-16] MEDS: IV NORMAL SALINE 1000ML BAG 1,000 ML IV SCH (15:00)
[2021-10-16 19:20] VITALS: BP 123/58
[2021-10-16] MEDS: SIMVASTATIN 40 MG TABLET. PO SCH (20:48)
[2021-10-16] MEDS: APIXABAN 2.5 MG TABLET. PO SCH (20:49)
[2021-10-16] MEDS: ZOLPIDEM 5 MG TABLET. PO PRN (20:49)
[2021-10-16] MEDS: CITALOPRAM 20 MG TABLET. PO SCH (20:49)
[2021-10-16 23:00] VITALS: BP 156/70
[2021-10-17 03:05] VITALS: BP 131/60
[2021-10-17 05:09] LABS: BASO % 0 % (0-3); EOS # 0.6 x10^3/uL (0.0-0.7); EOS % 3 % (0-3); HEMATOCRIT 39.3 % (36.0-47.0); HEMOGLOBIN 11.8 g/dL (12.0-15.5); LYMPH % 10 % (24-48); MEAN CORPUSCULAR HEMOGLOBIN 21 pg (25-35); MEAN CORPUSCULAR HGB CONC 30 g/dL (31-37); MEAN CORPUSCULAR VOLUME 69 fL (79-100); MONO # 0.3 x10^3/uL (0.0-1.1); MONO % 2 % (0-9); NEUT # 17.3 x10^3/uL (1.8-7.7); NEUT % 85 % (31-73); PLATELET COUNT 420 x10^3/uL (140-400); RED BLOOD COUNT 5.71 x10^6/uL (3.50-5.40); WHITE BLOOD COUNT 20.3 x10^3/uL (4.0-11.0)
[2021-10-17] MEDS: IV NORMAL SALINE 1000ML BAG 1,000 ML IV SCH ×2 (05:25→18:15)
[2021-10-17 05:27] LABS: CALCIUM 8.8 mg/dL (8.5-10.1); CREATININE 2.6 mg/dL (0.6-1.0); GFR 17.9
[2021-10-17 05:36] LABS: POTASSIUM 5.3 mmol/L (3.5-5.1)
[2021-10-17] MEDS: LEVOTHYROXINE 75 MCG TABLET PO SCH (05:59)
[2021-10-17 07:00] VITALS: BP_SYST 147; BP_SYST 158; BP_DIAS 68; BP_DIAS 90
[2021-10-17] MEDS: ASPIRIN ENTERIC COATED 81 MG TABLET.DR. PO SCH (08:19)
[2021-10-17] MEDS: MULTIVITAMIN with MINERAL TABLET. PO SCH (08:19)
[2021-10-17] MEDS: DOCUSATE SODIUM 100 MG CAPSULE. PO SCH ×2 (08:19→20:35)
[2021-10-17] MEDS: APIXABAN 2.5 MG TABLET. PO SCH ×2 (08:19→20:35)
[2021-10-17] MEDS: CHOLECALCIFEROL (VITAMIN D3) 1,000 UNIT TABLET PO SCH (08:19)
[2021-10-17] MEDS: ISOSORBIDE MONONITRATE ER 30 MG TAB.ER.24H PO SCH (08:20)
[2021-10-17] MEDS: LABETALOL HCL 200 MG TABLET PO SCH ×2 (08:21→20:34)
--- NOTE | 2021-10-17 10:32 | PDOC ---
CARDIO Progress Notes Date and Time Date of Service 10/17/21 Time of Evaluation 1030 Subjective Subjective: No Chest Pain, No shortness of breath, No Palpitations Vitals Vitals Vital Signs Date Time Temp Pulse Resp B/P (MAP) Pulse Ox O2 Delivery O2 Flow Rate FiO2 10/17/21 08:21 65 158/68 10/17/21 08:00 Room Air 10/17/21 07:00 97.9 18 92 97.9 10/16/21 20:00 2.0 Weight Weight [ ] Input and Output Intake and Output Intake and Output 10/17/21 07:00 Intake Total 1020 ml Balance 1020 ml Intake Oral 1020 ml # Voids 2 # Bowel Movements 2 Laboratory Labs Laboratory Tests Test 10/17/21 04:30 White Blood Count 20.3 x10^3/uL (4.0-11.0) Red Blood Count 5.71 x10^6/uL (3.50-5.40) Hemoglobin 11.8 g/dL (12.0-15.5) Hematocrit 39.3 % (36.0-47.0) Mean Corpuscular Volume 69 fL (79-100) Mean Corpuscular Hemoglobin 21 pg (25-35) Mean Corpuscular Hemoglobin Concent 30 g/dL (31-37) Red Cell Distribution Width 21.0 % (11.5-14.5) Platelet Count 420 x10^3/uL (140-400) Neutrophils (%) (Auto) 85 % (31-73) Lymphocytes (%) (Auto) 10 % (24-48) Monocytes (%) (Auto) 2 % (0-9) Eosinophils (%) (Auto) 3 % (0-3) Basophils (%) (Auto) 0 % (0-3) Neutrophils # (Auto) 17.3 x10^3/uL (1.8-7.7) Lymphocytes # (Auto) 2.0 x10^3/uL (1.0-4.8) Monocytes # (Auto) 0.3 x10^3/uL (0.0-1.1) Eosinophils # (Auto) 0.6 x10^3/uL (0.0-0.7) Basophils # (Auto) 0.0 x10^3/uL (0.0-0.2) Sodium Level 138 mmol/L (136-145) Potassium Level 5.3 mmol/L (3.5-5.1) Chloride Level 102 mmol/L (98-107) Carbon Dioxide Level 27 mmol/L (21-32) Anion Gap 9 (6-14) Blood Urea Nitrogen 36 mg/dL (7-20) Creatinine 2.6 mg/dL (0.6-1.0) Estimated GFR (Cockcroft-Gault) 17.9 Glucose Level 88 mg/dL (70-99) Calcium Level 8.8 mg/dL (8.5-10.1) Physical Exam HEENT: Neck Supple W Full Motion Chest: Symmetric LUNGS: Clear to Auscultation Heart: S1S2, RRR (SR) Abdomen: Soft N/T Extremities: No Edema, No Calf Tenderness Neurology: alert, oriented, follow commands Assessment Assessment 1. NSTEMI: LHC revealed 3VD with patent stents in the LAD and circumflex 2. HTN urgency: now controlled 3. AFIB RVR: paroxysmal by hx. presently SR 4. HLP; statin 5. Chronic diastolic CHF; compensated 6. Hypothyroidism: TSH not on goal 7. CAD: past stents 8. Leukocytosis; ID following 9. SHASHANK, hyperkalemia; ARB, HCTZ held. nephrology consulted Recommendations Secondary prevention measures. ASA therapy. Eliquis for stroke prevention Avoid nephrotoxins. Monitor renal function Will plan for outpatient PCI of the right coronary artery with likely orbital atherectomy. Supportive care Follow up in our office has been arranged with Dr. Shamir Ricoicifation of Admission Dx: Justifications for Admission: Justification of Admission Dx: Yes HILDA PADILLA APRN Oct 17, 2021 10:32
--- NOTE | 2021-10-17 10:36 | PDOC ---
[employer] PROGRESS NOTE Date of Service DOS: DATE: 10/17/21 TIME: 10:34 Chief Complaint Chief Complaint New SHASHANK Leukocytosis Status post cardiac cath Chest pain with elevated troponin CAD with previous stents x5, AFib, hyperlipidemia, hypertension, hypothyroidism, anemia, tobacco abuse, anxiety. History of Present Illness History of Present Illness 10/17/2021 Patient seen and examined Discussed with RN Chart reviewed Her white count continues to trend down to 20.3 However now her creatinine is climbing to 2.6 I went ahead and consulted nephrology 10/16/2021 Patient seen and examined Discussed with RN Chart reviewed White count is down to 21.7 Blood pressures have normalized 10/15/2021 Patient seen and examined She is resting with no apparent distress Discussed with RN Chart reviewed White count down to 22 Pressures are improving she still at 170 low I ordered another dose of IV Lasix 10/14/2021 Patient seen and examined Clinically she looks great but her white count keeps going higher its up to 23 (she has no fevers and no sign of sepsis) Blood pressure still running high Discussed with RN Chart reviewed Discussed with pharmacy We will go ahead and consult infectious disease for second opinion 10/13/21 Patient seen and examined WBC is elevated from yesterday, will keep her and hopefully d/c tomorrow if it goes down Will d/c to [facility] Chart reviewed Discussed with RN and case management 10/12/2021 Patient seen and examined Discussed with RN Discussed with cardiology Chart reviewed Discussed with case management Patient is going for cardiac cath today Her TSH is a little high went ahead and called pharmacy and we increased her Synthroid to 75 a day Vitals/I&O Vitals/I&O: Vital Signs Date Time Temp Pulse Resp B/P (MAP) Pulse Ox O2 Delivery O2 Flow Rate FiO2 10/17/21 08:21 65 158/68 10/17/21 08:00 Room Air 10/17/21 07:00 97.9 18 92 97.9 10/16/21 20:00 2.0 I & O 10/16/21 10/16/21 10/17/21 15:00 23:00 07:00 Intake Total 460 ml 360 ml 200 ml Balance 460 ml 360 ml 200 ml Physical Exam Physical Exam: GENERAL: Alert, oriented female, not in distress. HEENT: no icterus, oral lesions, normocephalic atraumatic NECK: Supple, no JVP, no lymphadenopathy. LUNGS: Clear. HEART: S1, S2, regular. ABDOMEN: Soft, nontender, no organomegaly. EXTREMITIES: No edema, cyanosis. SKIN: Unremarkable. NEUROLOGIC: The patient is alert, awake, and appropriate. No focal neurologic deficit. General: Alert, Oriented X3, Cooperative, No acute distress Heart: Other (AFIB RVR) Lungs: Clear Abdomen: Soft, No tenderness Extremities: No cyanosis Skin: No breakdown, No significant lesion Labs Labs: Laboratory Tests Test 10/17/21 04:30 White Blood Count 20.3 x10^3/uL (4.0-11.0) Red Blood Count 5.71 x10^6/uL (3.50-5.40) Hemoglobin 11.8 g/dL (12.0-15.5) Hematocrit 39.3 % (36.0-47.0) Mean Corpuscular Volume 69 fL (79-100) Mean Corpuscular Hemoglobin 21 pg (25-35) Mean Corpuscular Hemoglobin Concent 30 g/dL (31-37) Red Cell Distribution Width 21.0 % (11.5-14.5) Platelet Count 420 x10^3/uL (140-400) Neutrophils (%) (Auto) 85 % (31-73) Lymphocytes (%) (Auto) 10 % (24-48) Monocytes (%) (Auto) 2 % (0-9) Eosinophils (%) (Auto) 3 % (0-3) Basophils (%) (Auto) 0 % (0-3) Neutrophils # (Auto) 17.3 x10^3/uL (1.8-7.7) Lymphocytes # (Auto) 2.0 x10^3/uL (1.0-4.8) Monocytes # (Auto) 0.3 x10^3/uL (0.0-1.1) Eosinophils # (Auto) 0.6 x10^3/uL (0.0-0.7) Basophils # (Auto) 0.0 x10^3/uL (0.0-0.2) Sodium Level 138 mmol/L (136-145) Potassium Level 5.3 mmol/L (3.5-5.1) Chloride Level 102 mmol/L (98-107) Carbon Dioxide Level 27 mmol/L (21-32) Anion Gap 9 (6-14) Blood Urea Nitrogen 36 mg/dL (7-20) Creatinine 2.6 mg/dL (0.6-1.0) Estimated GFR (Cockcroft-Gault) 17.9 Glucose Level 88 mg/dL (70-99) Calcium Level 8.8 mg/dL (8.5-10.1) Assessment and Plan Assessmemt and Plan Problems Medical Problems: (1) Atrial fibrillation with rapid ventricular response Status: Acute (2) Leukocytosis Status: Acute (3) Renal insufficiency Status: Acute New SHASHANK Leukocytosis Status post cardiac cath Chest pain with elevated troponin CAD with previous stents x5, AFib, hyperlipidemia, hypertension, hypothyroidism, anemia, tobacco abuse, anxiety. Plan IV fluids Trend creatinine and white count I consulted nephrology for second opinion Continue empiric IV antibiotics Appreciate ID input Appreciate cardiology input Home meds DVT prophylaxis Full code Hope to discharge once her creatinine has returned to his baseline and white count down to less than 15 Comment Review of Relevant I have reviewed the following items reginald (where applicable) has been applied. Medications: Current Medications Medications (Trade) Dose Ordered Sig/[place] Route PRN Reason Start Time Stop Time Status Last Admin Dose Admin Ondansetron HCl (Zofran) 4 mg PRN Q6HRS PRN IVP NAUSEA/VOMITING 10/16/21 12:00 10/16/21 12:01 Apixaban (Eliquis) 2.5 mg BID PO 10/16/21 21:00 10/17/21 08:19 Sodium Chloride 1,000 ml @ 75 mls/hr [id number] IV 10/16/21 15:00 10/17/21 05:25 Justifications for Admission Other Justification Right hip fracture ROSALVA SOTOMAYOR III DO Oct 17, 2021 10:36
[2021-10-17 11:00] VITALS: BP 137/62
--- NOTE | 2021-10-17 11:05 | PDOC2 ---
CONSULT Date of Consult Date of Consult DATE: 10/17/21 TIME: 10:59 Reason for Consult Reason for Consult: SHASHANK Referring Physician Referring Physician: PATTY Identification/Chief Complaint Chief Complaint CHEST PAIN Source Source: Chart review, Patient History of Present Illness Reason for Visit: THIS IS A 76 YR OLD WITH CHEST PAIN. HAS HX OF CAD AND UNDERWENT CARDIAC CATH. DID NOT NEED ANY INTERVENTION. ALSO ON ADMIT SHE WAS EXTREMELY HYPERTENSIVE WITH SBP NEAR 200 AND DBP OVER 100. SINCE THEN SHE HAS HAD CORRECTION OF HER HTN. NO KNOWN CKD. CR OF 1.2 ON ADMIT BUT NOW CR UP TO 2.6 WITH K OF 5.3. UA NEG. SHE HAD BEEN ON K SUPPLEMENTS, HCTZ AND LOSARTAN. Past Medical History Cardiovascular: CAD, HTN, [place], Hyperlipidemia Pulmonary: Other CENTRAL NERVOUS SYSTEM: Other GI: No pertinent hx Heme/Onc: No pertinent hx Hepatobiliary: No pertinent hx Psych: Anxiety Musculoskeletal: Osteoarthritis Rheumatologic: No pertinent hx Infectious disease: No pertinent hx Renal/: Chronic renal insuff, UTI Endocrine: Hypothyroidism Past Surgical History Past Surgical History: Appendectomy, Cataract Removal Family History Family History: Family History Unknown Social History Quit ALCOHOL: none Drugs: None Lives: Intermediate Domestic Violence: Neg Current Problem List Problem List Problems Medical Problems: (1) Atrial fibrillation with rapid ventricular response Status: Acute (2) Leukocytosis Status: Acute (3) Renal insufficiency Status: Acute Current Medications Current Medications Current Medications Diltiazem HCl (Cardizem Iv Push) 15 mg 1X ONCE IVP Last administered on 10/11/21at 03:44; Start 10/11/21 at 03:30; Stop 10/11/21 at 03:31; Status DC Metoprolol Tartrate (Lopressor Vial) 5 mg 1X ONCE IVP Last administered on 10/11/21at 08:37; Start 10/11/21 at 08:30; Stop 10/11/21 at 08:31; Status DC Ceftriaxone Sodium (Rocephin) 1 gm Q24H IVP Last administered on 10/14/21at 08:31; Start 10/11/21 at 09:00; Stop 10/14/21 at 16:56; Status DC Labetalol HCl (Normodyne Iv Push) 20 mg PRN Q4HRS PRN IVP HYPERTENSION Last administered on 10/14/21at 17:20; Start 10/11/21 at 09:45 Aspirin (Ecotrin) 81 mg DAILYWBKFT PO Last administered on 10/17/21 08:19; Start 10/12/21 at 08:00 Heparin Sodium/ Dextrose 250 ml @ 6.996 mls/ hr CONT PRN IV PER PROTOCOL Last administered on 10/11/21 12:29; Start 10/11/21 at 10:15; Stop 10/12/21 at 15:01; Status DC Heparin Sodium (Porcine) (Heparin Sodium) 1,450 unit PRN Q6HRS PRN IV FOR UFH LEVEL LESS THAN 0.2 Last administered on 10/12/21 01:14; Start 10/11/21 at 10:15; Stop 10/12/21 at 15:01; Status DC Digoxin (Lanoxin) 250 mcg 1X ONCE IV Last administered on 10/11/21 10:51; Start 10/11/21 at 10:45; Stop 10/11/21 at 10:47; Status DC Acetaminophen (Tylenol) 650 mg PRN Q6HRS PRN PO Headaches, Temp > 101.5F Last administered on 10/13/21 20:28; Start 10/11/21 at 13:15 Apixaban (Eliquis) 5 mg BID PO ; Start 10/11/21 at 21:00; Status Cancel Calcium Carbonate/ Glycine (Tums) 500 mg PRN Q3HRS PRN PO UPSET STOMACH Last administered on 10/16/21 14:58; Start 10/11/21 at 13:15 Cetirizine HCl (ZyrTEC) 10 mg PRN DAILY PRN PO ALLERGIES; Start 10/11/21 at 13:15 Vitamin D (Vitamin D3) 1,000 unit DAILY PO Last administered on 10/17/21 08:19; Start 10/12/21 at 09:00 Docusate Sodium (Colace) 100 mg BID PO Last administered on 10/17/21 08:19; Start 10/11/21 at 21:00 Isosorbide Mononitrate (Imdur) 30 mg DAILY PO Last administered on 10/17/21 08:20; Start 10/12/21 at 09:00 Levothyroxine Sodium (Synthroid) 50 mcg DAILY07 PO Last administered on 10/12/21 05:47; Start 10/12/21 at 07:00; Stop 10/12/21 at 10:46; Status DC Multivitamins (Thera M Plus) 1 tab DAILY PO Last administered on 10/17/21at 08:19; Start 10/12/21 at 09:00 Polyethylene Glycol (miraLAX PACKET) 17 gm PRN DAILY PRN PO CONSTIPATION; Start 10/11/21 at 13:15 Potassium Chloride (Klor-Con) 20 meq BIDWMEALS PO Last administered on 10/15/21at 17:07; Start 10/11/21 at 17:00; Stop 10/16/21 at 15:00; Status DC Simvastatin (Zocor) 40 mg QHS PO Last administered on 10/16/21at 20:48; Start 10/11/21 at 21:00 Citalopram Hydrobromide (CeleXA) 40 mg HS PO Last administered on 10/16/21at 20:49; Start 10/11/21 at 21:00 Hydrochlorothiazide (Microzide) 12.5 mg DAILY PO Last administered on 10/16/21at 09:30; Start 10/12/21 at 09:00; Stop 10/16/21 at 14:59; Status DC Losartan Potassium (Cozaar) 100 mg DAILY PO Last administered on 10/16/21at 09:31; Start 10/12/21 at 09:00; Stop 10/16/21 at 14:59; Status DC Metoprolol Tartrate (Lopressor) 50 mg BID PO Last administered on 10/14/21at 08:27; Start 10/11/21 at 21:00; Stop 10/14/21 at 11:18; Status DC Zolpidem Tartrate (Ambien) 5 mg PRN QHS PRN PO INSOMNIA Last administered on 10/16/21 20:49; Start 10/11/21 at 13:30 Losartan Potassium (Cozaar) 100 mg 1X ONCE PO Last administered on 10/11/21at 15:37; Start 10/11/21 at 16:00; Stop 10/11/21 at 16:01; Status DC Metoprolol Tartrate (Lopressor) 50 mg 1X ONCE PO Last administered on 10/11/21 17:19; Start 10/11/21 at 17:15; Stop 10/11/21 at 17:16; Status DC Levothyroxine Sodium (Synthroid) 75 mcg DAILY06 PO Last administered on 10/17/21at 05:59; Start 10/13/21 at 06:00 Sodium Chloride 1,000 ml @ 75 mls/hr [id number] ONCE IV Last administered on 10/12/21at 11:19; Start 10/12/21 at 11:15; Stop 10/13/21 at 00:34; Status DC Fentanyl Citrate (Fentanyl 2ml Vial) 100 mcg STK-MED ONCE .ROUTE ; Start 10/12/21 at 13:45; Stop 10/12/21 at 13:46; Status DC Midazolam HCl (Versed) 2 mg STK-MED ONCE .ROUTE ; Start 10/12/21 at 13:46; Stop 10/12/21 at 13:46; Status DC Heparin Sodium (Porcine) (Heparin Sodium) 10,000 unit STK-MED ONCE .ROUTE ; Start 10/12/21 at 13:46; Stop 10/12/21 at 13:46; Status DC Verapamil HCl (Verapamil) 5 mg STK-MED ONCE .ROUTE ; Start 10/12/21 at 13:46; Stop 10/12/21 at 13:46; Status DC Nitroglycerin (Nitroglycerin) 200 mcg STK-MED ONCE .ROUTE ; Start 10/12/21 at 13:46; Stop 10/12/21 at 13:46; Status DC Iodixanol (Visipaque 320) 100 ml STK-MED ONCE .ROUTE ; Start 10/12/21 at 13:59; Stop 10/12/21 at 14:00; Status DC Lidocaine HCl (Xylocaine-Mpf 1% 2ml Vial) 2 ml STK-MED ONCE .ROUTE ; Start 10/12/21 at 13:59; Stop 10/12/21 at 14:00; Status DC Heparin Sodium/ Sodium Chloride 1,000 ml @ As Directed STK-MED ONCE .ROUTE ; Start 10/12/21 at 14:00; Stop 10/12/21 at 14:00; Status DC Nitroglycerin (Nitroglycerin) 200 mcg STK-MED ONCE .ROUTE ; Start 10/12/21 at 14:22; Stop 10/12/21 at 14:22; Status DC Nitroglycerin (Nitroglycerin) 200 mcg 1X ONCE IART Last administered on 10/12/21 14:36; Start 10/12/21 at 14:30; Stop 10/12/21 at 14:32; Status DC Verapamil HCl (Verapamil) 2.5 mg 1X ONCE IART Last administered on 10/12/21 14:38; Start 10/12/21 at 14:30; Stop 10/12/21 at 14:32; Status DC Heparin Sodium (Porcine) (Heparin Sodium) 2,500 unit 1X ONCE IART Last administered on 10/12/21 14:38; Start 10/12/21 at 14:30; Stop 10/12/21 at 14:32; Status DC Heparin Sodium/ Sodium Chloride (HEPARIN for ARTERIAL LINE FLUSH) 1,000 unit 1X ONCE IART Last administered on 10/12/21 14:36; Start 10/12/21 at 14:30; Stop 10/12/21 at 14:32; Status DC Midazolam HCl (Versed) 2 mg 1X ONCE IV Last administered on 10/12/21 14:36; Start 10/12/21 at 14:30; Stop 10/12/21 at 14:32; Status DC Fentanyl Citrate (Fentanyl 2ml Vial) 50 mcg 1X ONCE IV Last administered on 10/12/21 14:37; Start 10/12/21 at 14:30; Stop 10/12/21 at 14:32; Status DC Iodixanol (Visipaque 320) 55 ml 1X ONCE IART Last administered on 10/12/21 14:36; Start 10/12/21 at 14:30; Stop 10/12/21 at 14:32; Status DC Lidocaine HCl (Xylocaine-Mpf 1% 2ml Vial) 1 ml 1X ONCE INJ Last administered on 10/12/21 14:37; Start 10/12/21 at 14:30; Stop 10/12/21 at 14:32; Status DC Nitroglycerin (Nitroglycerin) 200 mcg 1X ONCE ICAR Last administered on 10/12/21 14:36; Start 10/12/21 at 14:30; Stop 10/12/21 at 14:32; Status DC Apixaban (Eliquis) 5 mg BID PO Last administered on 10/16/21at 09:31; Start 10/12/21 at 16:00; Stop 10/16/21 at 14:20; Status DC Hydralazine HCl (Apresoline Inj) 10 mg PRN Q4HRS PRN IVP ELEVATED BP, SEE COMMENTS Last administered on 10/13/21at 19:15; Start 10/13/21 at 16:00 Furosemide (Lasix) 40 mg 1X ONCE IVP Last administered on 10/14/21at 10:33; Start 10/14/21 at 10:30; Stop 10/14/21 at 10:31; Status DC Labetalol HCl (Trandate) 200 mg BID PO Last administered on 10/17/21at 08:21; Start 10/14/21 at 21:00 Furosemide (Lasix) 40 mg 1X ONCE IVP Last administered on 10/15/21at 11:06; Start 10/15/21 at 10:15; Stop 10/15/21 at 10:17; Status DC Ondansetron HCl (Zofran) 4 mg PRN Q6HRS PRN IVP NAUSEA/VOMITING Last administered on 10/16/21 12:01; Start 10/16/21 at 12:00 Apixaban (Eliquis) 2.5 mg BID PO Last administered on 10/17/21 08:19; Start 10/16/21 at 21:00 Sodium Chloride 1,000 ml @ 75 mls/hr [id number] IV Last administered on 10/17/21at 05:25; Start 10/16/21 at 15:00 Active Scripts Active Thera-M Tablet (Multivits,Ca,Minerals/Iron/Fa) 1 Each Tablet 1 Tab PO DAILY 30 Days Vitamin D3 (Vitamin D) 25 Mcg Tablet 1,000 Unit PO DAILY 30 Days Polyethylene Glycol 3350 17 Gm Powd.pack 17 Gm PO PRN DAILY PRN 30 Days Dok (Docusate Sodium) 100 Mg Capsule 100 Mg PO BID 30 Days Mag-Al Plus Xs Suspension (Mag Hydrox/Al Hydrox/Simeth) 30 Ml Oral.susp 30 Ml PO PRN Q3HRS PRN 28 Days Calcium Carbonate 200 Mg Tab.chew 500 Mg PO PRN Q3HRS PRN 30 Days Tylenol (Acetaminophen) 325 Mg Tablet 650 Mg PO PRN Q6HRS PRN 14 Days Hydrocodone-Apap 5-325 (Hydrocodone Bit/Acetaminophen) 1 Tab Tablet 1 Tab PO PRN Q4HRS PRN 14 Days Eliquis (Apixaban) 5 Mg Tablet 5 Mg PO BID 30 Days Levothyroxine Sodium 50 Mcg Tablet 50 Tab PO DAILY Reported Isosorbide Mononitrate Er (Isosorbide Mononitrate) 30 Mg Tab.er.24h 1 Tab PO DAILY Hydrochlorothiazide Tablet (Hydrochlorothiazide) 12.5 Mg Tablet 1 Tab PO DAILY Losartan Potassium 100 Mg Tablet 1 Tab PO DAILY Citalopram Hbr (Citalopram Hydrobromide) 40 Mg Tablet 1 Tab PO HS Simvastatin 40 Mg Tablet 1 Tab PO QHS Aspir 81 (Aspirin) 81 Mg Tablet.dr 1 Tab PO DAILY Potassium Chloride (Potassium Chloride) 10 Meq Capsule.er 20 Meq PO BIDWMEALS Zolpidem Tartrate 10 Mg Tablet 10 Mg PO PRN QHS PRN Cetirizine Hcl 10 Mg Tablet 1 Tab PO PRN DAILY PRN Bystolic (Nebivolol Hcl) 20 Mg Tablet 1 Tab PO DAILY Allergies Allergies: Coded Allergies: amlodipine (Verified Allergy, Severe, lip swelling, 10/11/21) hydralazine (Verified Allergy, Intermediate, Rash, 10/11/21) sulfamethoxazole (Verified Allergy, Intermediate, 10/11/21) trimethoprim (Verified Allergy, Intermediate, 10/11/21) morphine (Verified Adverse Reaction, Intermediate, 10/12/21) "makes me act loopy" ROS General: YES: Fatigue PSYCHOLOGICAL ROS: YES: Anxiety Eyes: Yes Decreased vision HEENT: YES: Melissa ALLERGY AND IMMUNOLOGY: YES: Seasonal Allergies Respiratory: YES: Cough, Shortness of breath Cardiovascular: yes Chest Pain Gastrointestinal: Yes Nausea Genitourinary: YES Other (NOCTURIA) Musculoskeletal: Yes Muscular Weakness Neurological: Yes Weakness Skin: Yes Dry Skin Physical Exam General: Alert, Oriented X3, Cooperative, No acute distress HEENT: Atraumatic Lungs: Clear to auscultation Heart: Regular rate Abdomen: Normal bowel sounds, Soft, No tenderness Extremities: No clubbing Skin: No breakdown Neuro: Normal speech, Normal tone Psych/Mental Status: Mental status NL MUSCULOSKELETAL: No joint tenderness, No deformity, No swelling Vitals VITALS Vital Signs Date Time Temp Pulse Resp B/P (MAP) Pulse Ox O2 Delivery O2 Flow Rate FiO2 10/17/21 08:21 65 158/68 10/17/21 08:00 Room Air 10/17/21 07:00 97.9 18 92 97.9 10/16/21 20:00 2.0 Labs Labs Laboratory Tests Test 10/16/21 04:35 10/17/21 04:30 White Blood Count 21.7 x10^3/uL (4.0-11.0) 20.3 x10^3/uL (4.0-11.0) Red Blood Count 6.29 x10^6/uL (3.50-5.40) 5.71 x10^6/uL (3.50-5.40) Hemoglobin 13.3 g/dL (12.0-15.5) 11.8 g/dL (12.0-15.5) Hematocrit 43.7 % (36.0-47.0) 39.3 % (36.0-47.0) Mean Corpuscular Volume 70 fL (79-100) 69 fL (79-100) Mean Corpuscular Hemoglobin 21 pg (25-35) 21 pg (25-35) Mean Corpuscular Hemoglobin Concent 30 g/dL (31-37) 30 g/dL (31-37) Red Cell Distribution Width 21.1 % (11.5-14.5) 21.0 % (11.5-14.5) Platelet Count 465 x10^3/uL (140-400) 420 x10^3/uL (140-400) Neutrophils (%) (Auto) 85 % (31-73) 85 % (31-73) Lymphocytes (%) (Auto) 10 % (24-48) 10 % (24-48) Monocytes (%) (Auto) 1 % (0-9) 2 % (0-9) Eosinophils (%) (Auto) 4 % (0-3) 3 % (0-3) Basophils (%) (Auto) 1 % (0-3) 0 % (0-3) Neutrophils # (Auto) 18.4 x10^3/uL (1.8-7.7) 17.3 x10^3/uL (1.8-7.7) Lymphocytes # (Auto) 2.1 x10^3/uL (1.0-4.8) 2.0 x10^3/uL (1.0-4.8) Monocytes # (Auto) 0.3 x10^3/uL (0.0-1.1) 0.3 x10^3/uL (0.0-1.1) Eosinophils # (Auto) 0.8 x10^3/uL (0.0-0.7) 0.6 x10^3/uL (0.0-0.7) Basophils # (Auto) 0.1 x10^3/uL (0.0-0.2) 0.0 x10^3/uL (0.0-0.2) Sodium Level 139 mmol/L (136-145) 138 mmol/L (136-145) Potassium Level 5.5 mmol/L (3.5-5.1) 5.3 mmol/L (3.5-5.1) Chloride Level 99 mmol/L (98-107) 102 mmol/L (98-107) Carbon Dioxide Level 29 mmol/L (21-32) 27 mmol/L (21-32) Anion Gap 11 (6-14) 9 (6-14) Blood Urea Nitrogen 27 mg/dL (7-20) 36 mg/dL (7-20) Creatinine 2.1 mg/dL (0.6-1.0) 2.6 mg/dL (0.6-1.0) Estimated GFR (Cockcroft-Gault) 22.9 17.9 Glucose Level 103 mg/dL (70-99) 88 mg/dL (70-99) Calcium Level 9.4 mg/dL (8.5-10.1) 8.8 mg/dL (8.5-10.1) Laboratory Tests Test 10/17/21 04:30 White Blood Count 20.3 x10^3/uL (4.0-11.0) Red Blood Count 5.71 x10^6/uL (3.50-5.40) Hemoglobin 11.8 g/dL (12.0-15.5) Hematocrit 39.3 % (36.0-47.0) Mean Corpuscular Volume 69 fL (79-100) Mean Corpuscular Hemoglobin 21 pg (25-35) Mean Corpuscular Hemoglobin Concent 30 g/dL (31-37) Red Cell Distribution Width 21.0 % (11.5-14.5) Platelet Count 420 x10^3/uL (140-400) Neutrophils (%) (Auto) 85 % (31-73) Lymphocytes (%) (Auto) 10 % (24-48) Monocytes (%) (Auto) 2 % (0-9) Eosinophils (%) (Auto) 3 % (0-3) Basophils (%) (Auto) 0 % (0-3) Neutrophils # (Auto) 17.3 x10^3/uL (1.8-7.7) Lymphocytes # (Auto) 2.0 x10^3/uL (1.0-4.8) Monocytes # (Auto) 0.3 x10^3/uL (0.0-1.1) Eosinophils # (Auto) 0.6 x10^3/uL (0.0-0.7) Basophils # (Auto) 0.0 x10^3/uL (0.0-0.2) Sodium Level 138 mmol/L (136-145) Potassium Level 5.3 mmol/L (3.5-5.1) Chloride Level 102 mmol/L (98-107) Carbon Dioxide Level 27 mmol/L (21-32) Anion Gap 9 (6-14) Blood Urea Nitrogen 36 mg/dL (7-20) Creatinine 2.6 mg/dL (0.6-1.0) Estimated GFR (Cockcroft-Gault) 17.9 Glucose Level 88 mg/dL (70-99) Calcium Level 8.8 mg/dL (8.5-10.1) Images Images PATIENT: MONICO LONG ACCOUNT: [id number] : 1945 LOCATION: ER AGE: 76 SEX: F EXAM STATUS: PRE ER ORD. PHYSICIAN: DENIZ OATES DO REASON: cp PROCEDURE: PORTABLE CHEST 1V EXAM: XR CHEST 1V 10/11/2021 2:46 AM CLINICAL INDICATION: Chest pain COMPARISON: Chest radiograph 08/25/2021 TECHNIQUE: AP upright view of the chest FINDINGS: The heart is enlarged. Lungs are well-expanded and clear. No pleural effusion or pneumothorax. IMPRESSION: Cardiomegaly. No acute abnormality. Electronically signed by: Nicolette Tee MD (10/11/2021 3:55 AM) [facility] Assessment/Plan Assessment/Plan IMP [id number] AND RELATIVE HYPOTENSION MALIGNANT ACCELERATED HTN-BETTER CAD HX - CHEST PAIN AFIB RVR NSTEMI LEUCOCYTOSIS PLAN HYDRATION HOLD ARB, K AND ARB LABS IN AM WILL FOLLOW ID AND CARDIOLOGY EVAL ONGOING FREDI MAXWELL MD Oct 17, 2021 11:05
--- NOTE | 2021-10-17 12:21 | PDOC ---
Infectious Disease Note Subjective: Subjective Pt feels better Vital Signs: Vital Signs Vital Signs Date Time Temp Pulse Resp B/P (MAP) Pulse Ox O2 Delivery O2 Flow Rate FiO2 10/17/21 11:00 97.7 61 18 137/62 (87) 95 Nasal Cannula 97.7 10/16/21 20:00 2.0 Physical Exam: PHYSICAL EXAM GENERAL: Alert, oriented female, not in distress. HEENT: no icterus, oral lesions, normocephalic atraumatic NECK: Supple, no JVP, no lymphadenopathy. LUNGS: Clear. HEART: S1, S2, regular. ABDOMEN: Soft, nontender, no organomegaly. EXTREMITIES: No edema, cyanosis. SKIN: Unremarkable. NEUROLOGIC: The patient is alert, awake, and appropriate. No focal neurologic deficit. Medications: Inpatient Meds: Medications reviewed. Labs: Lab Laboratory Tests Test 10/17/21 04:30 White Blood Count 20.3 x10^3/uL (4.0-11.0) Red Blood Count 5.71 x10^6/uL (3.50-5.40) Hemoglobin 11.8 g/dL (12.0-15.5) Hematocrit 39.3 % (36.0-47.0) Mean Corpuscular Volume 69 fL (79-100) Mean Corpuscular Hemoglobin 21 pg (25-35) Mean Corpuscular Hemoglobin Concent 30 g/dL (31-37) Red Cell Distribution Width 21.0 % (11.5-14.5) Platelet Count 420 x10^3/uL (140-400) Neutrophils (%) (Auto) 85 % (31-73) Lymphocytes (%) (Auto) 10 % (24-48) Monocytes (%) (Auto) 2 % (0-9) Eosinophils (%) (Auto) 3 % (0-3) Basophils (%) (Auto) 0 % (0-3) Neutrophils # (Auto) 17.3 x10^3/uL (1.8-7.7) Lymphocytes # (Auto) 2.0 x10^3/uL (1.0-4.8) Monocytes # (Auto) 0.3 x10^3/uL (0.0-1.1) Eosinophils # (Auto) 0.6 x10^3/uL (0.0-0.7) Basophils # (Auto) 0.0 x10^3/uL (0.0-0.2) Sodium Level 138 mmol/L (136-145) Potassium Level 5.3 mmol/L (3.5-5.1) Chloride Level 102 mmol/L (98-107) Carbon Dioxide Level 27 mmol/L (21-32) Anion Gap 9 (6-14) Blood Urea Nitrogen 36 mg/dL (7-20) Creatinine 2.6 mg/dL (0.6-1.0) Estimated GFR (Cockcroft-Gault) 17.9 Glucose Level 88 mg/dL (70-99) Calcium Level 8.8 mg/dL (8.5-10.1) Objective: Assessment: 1. Leukocytosis. No obvious signs or symptoms of localizing infection at this time patient could have a myeloproliferative disorder though last white count in our system is normal from 2019. 2. Chest pain. 3. Accelerated/malignant hypertension. 4. Coronary artery disease. Plan: Plan of Care Leukocytosis could be reactive now has SHASHANK, anemia Monitor off antibiotics Trend WBC Cont Supportive care MIGUEL ÁNGEL PRASAD MD Oct 17, 2021 12:21
--- NOTE | 2021-10-17 12:38 | NUR ---
SS following up with discharge planning. SS reviewed pt chart and discussed with pt RN. Pt is currently on room air. COVID19 negative. Pt is [facility] resident from [facility], ; fax [phone]. Pt able to return to facility when medically ready for discharge. Nephrology consulted. Clinical updates phoned and faxed to facility. SS will continue to follow for discharge planning.
[2021-10-17 15:00] VITALS: BP 147/67
[2021-10-17 19:00] VITALS: BP 170/75
[2021-10-17] MEDS: ZOLPIDEM 5 MG TABLET. PO PRN (20:34)
[2021-10-17] MEDS: CITALOPRAM 20 MG TABLET. PO SCH (20:34)
[2021-10-17] MEDS: SIMVASTATIN 40 MG TABLET. PO SCH (20:34)
[2021-10-17 22:35] VITALS: BP 147/66
[2021-10-18] VITALS (8 sets, daily range): BP systolic 165–217; BP diastolic 79–91
[2021-10-18 03:24] LABS: BASO # 0.1 x10^3/uL (0.0-0.2); BASO % 0 % (0-3); EOS # 0.6 x10^3/uL (0.0-0.7); EOS % 3 % (0-3); HEMATOCRIT 37.2 % (36.0-47.0); HEMOGLOBIN 11.1 g/dL (12.0-15.5); LYMPH # 1.7 x10^3/uL (1.0-4.8); LYMPH % 10 % (24-48); MEAN CORPUSCULAR HEMOGLOBIN 20 pg (25-35); MEAN CORPUSCULAR HGB CONC 30 g/dL (31-37); MEAN CORPUSCULAR VOLUME 68 fL (79-100); MONO # 0.2 x10^3/uL (0.0-1.1); MONO % 1 % (0-9); NEUT # 14.5 x10^3/uL (1.8-7.7); NEUT % 85 % (31-73); PLATELET COUNT 413 x10^3/uL (140-400); RED BLOOD COUNT 5.47 x10^6/uL (3.50-5.40); RED CELL DISTRIBUTION WIDTH 20.8 % (11.5-14.5); WHITE BLOOD COUNT 17.1 x10^3/uL (4.0-11.0)
[2021-10-18 03:54] LABS: CALCIUM 8.7 mg/dL (8.5-10.1); CREATININE 1.6 mg/dL (0.6-1.0); GFR 31.3; POTASSIUM 4.2 mmol/L (3.5-5.1)
[2021-10-18] MEDS: LEVOTHYROXINE 75 MCG TABLET PO SCH (05:34)
[2021-10-18] MEDS: IV NORMAL SALINE 1000ML BAG 1,000 ML IV SCH (08:24)
[2021-10-18] MEDS: ISOSORBIDE MONONITRATE ER 30 MG TAB.ER.24H PO SCH (08:29)
[2021-10-18] MEDS: CHOLECALCIFEROL (VITAMIN D3) 1,000 UNIT TABLET PO SCH (08:29)
[2021-10-18] MEDS: LABETALOL HCL 200 MG TABLET PO SCH ×2 (08:29→21:10)
[2021-10-18] MEDS: DOCUSATE SODIUM 100 MG CAPSULE. PO SCH ×2 (08:29→21:10)
[2021-10-18] MEDS: ASPIRIN ENTERIC COATED 81 MG TABLET.DR. PO SCH (08:29)
[2021-10-18] MEDS: MULTIVITAMIN with MINERAL TABLET. PO SCH (08:29)
[2021-10-18] MEDS: APIXABAN 2.5 MG TABLET. PO SCH ×2 (08:29→21:09)
--- NOTE | 2021-10-18 08:48 | PDOC ---
[employer] PROGRESS NOTE Date of Service DOS: DATE: 10/18/21 TIME: 08:47 Chief Complaint Chief Complaint New SHASHANK Leukocytosis Status post cardiac cath Chest pain with elevated troponin CAD with previous stents x5, AFib, hyperlipidemia, hypertension, hypothyroidism, anemia, tobacco abuse, anxiety. History of Present Illness History of Present Illness 10/18/2021 Patient seen and examined She is resting with NAD Creatinine is down to 1.6 White count down to 17 Suspect we could go ahead and discharge 10/17/2021 Patient seen and examined Discussed with RN Chart reviewed Her white count continues to trend down to 20.3 However now her creatinine is climbing to 2.6 I went ahead and consulted nephrology 10/16/2021 Patient seen and examined Discussed with RN Chart reviewed White count is down to 21.7 Blood pressures have normalized 10/15/2021 Patient seen and examined She is resting with no apparent distress Discussed with RN Chart reviewed White count down to 22 Pressures are improving she still at 170 low I ordered another dose of IV Lasix 10/14/2021 Patient seen and examined Clinically she looks great but her white count keeps going higher its up to 23 (she has no fevers and no sign of sepsis) Blood pressure still running high Discussed with RN Chart reviewed Discussed with pharmacy We will go ahead and consult infectious disease for second opinion 10/13/21 Patient seen and examined WBC is elevated from yesterday, will keep her and hopefully d/c tomorrow if it goes down Will d/c to [facility] Chart reviewed Discussed with RN and case management 10/12/2021 Patient seen and examined Discussed with RN Discussed with cardiology Chart reviewed Discussed with case management Patient is going for cardiac cath today Her TSH is a little high went ahead and called pharmacy and we increased her Synthroid to 75 a day Vitals/I&O Vitals/I&O: Vital Signs Date Time Temp Pulse Resp B/P (MAP) Pulse Ox O2 Delivery O2 Flow Rate FiO2 10/18/21 08:29 75 181/83 10/18/21 07:00 97.4 18 95 Room Air 97.4 10/17/21 20:00 2.0 I & O 10/17/21 10/17/21 10/18/21 15:00 23:00 07:00 Intake Total 360 ml 1420 ml 360 ml Balance 360 ml 1420 ml 360 ml Physical Exam Physical Exam: GENERAL: Alert, oriented female, not in distress. HEENT: no icterus, oral lesions, normocephalic atraumatic NECK: Supple, no JVP, no lymphadenopathy. LUNGS: Clear. HEART: S1, S2, regular. ABDOMEN: Soft, nontender, no organomegaly. EXTREMITIES: No edema, cyanosis. SKIN: Unremarkable. NEUROLOGIC: The patient is alert, awake, and appropriate. No focal neurologic deficit. General: No acute distress Heart: Regular rate Lungs: Clear Abdomen: Normal bowel sounds, Soft, No tenderness Extremities: No clubbing Skin: No breakdown Labs Labs: Laboratory Tests Test 10/18/21 02:55 White Blood Count 17.1 x10^3/uL (4.0-11.0) Red Blood Count 5.47 x10^6/uL (3.50-5.40) Hemoglobin 11.1 g/dL (12.0-15.5) Hematocrit 37.2 % (36.0-47.0) Mean Corpuscular Volume 68 fL (79-100) Mean Corpuscular Hemoglobin 20 pg (25-35) Mean Corpuscular Hemoglobin Concent 30 g/dL (31-37) Red Cell Distribution Width 20.8 % (11.5-14.5) Platelet Count 413 x10^3/uL (140-400) Neutrophils (%) (Auto) 85 % (31-73) Lymphocytes (%) (Auto) 10 % (24-48) Monocytes (%) (Auto) 1 % (0-9) Eosinophils (%) (Auto) 3 % (0-3) Basophils (%) (Auto) 0 % (0-3) Neutrophils # (Auto) 14.5 x10^3/uL (1.8-7.7) Lymphocytes # (Auto) 1.7 x10^3/uL (1.0-4.8) Monocytes # (Auto) 0.2 x10^3/uL (0.0-1.1) Eosinophils # (Auto) 0.6 x10^3/uL (0.0-0.7) Basophils # (Auto) 0.1 x10^3/uL (0.0-0.2) Sodium Level 140 mmol/L (136-145) Potassium Level 4.2 mmol/L (3.5-5.1) Chloride Level 104 mmol/L (98-107) Carbon Dioxide Level 27 mmol/L (21-32) Anion Gap 9 (6-14) Blood Urea Nitrogen 24 mg/dL (7-20) Creatinine 1.6 mg/dL (0.6-1.0) Estimated GFR (Cockcroft-Gault) 31.3 Glucose Level 86 mg/dL (70-99) Calcium Level 8.7 mg/dL (8.5-10.1) Assessment and Plan Assessmemt and Plan Problems Medical Problems: (1) Atrial fibrillation with rapid ventricular response Status: Acute (2) Leukocytosis Status: Acute (3) Renal insufficiency Status: Acute New SHASHANK Leukocytosis Status post cardiac cath Chest pain with elevated troponin CAD with previous stents x5, AFib, hyperlipidemia, hypertension, hypothyroidism, anemia, tobacco abuse, anxiety. Plan Her creatinine is down to 1.6 and white count down to 17 suspect we could go ahead and discharge For now continue the following; Will send prescriptions for empiric p.o. antibiotics Encourage p.o. intake and p.o. fluids IV fluids Appreciate ID input Appreciate cardiology input Home meds DVT prophylaxis Full code Discharge Comment Review of Relevant I have reviewed the following items reginald (where applicable) has been applied. Justifications for Admission Other Justification Right hip fracture ROSALVA SOTOMAYOR III DO Oct 18, 2021 08:48
[2021-10-18] MEDS ORDERED: LABE200T4 PO (08:50)
--- NOTE | 2021-10-18 08:51 | SNU/HH DC ---
DISCHARGE WITH HOME HEALTH DISCHARGE INFORMATION: Final Diagnosis: Problems Medical Problems: (1) Atrial fibrillation with rapid ventricular response Status: Acute (2) Leukocytosis Status: Acute (3) Renal insufficiency Status: Acute Condition on Discharge: Stable CODE STATUS: Code Status: Full HOME HEALTH: Face to Face: I certify this patient is under my care and that I, or a nurse practitioner or physician's operating room assistant working with me, had a face to face encounter that meets the physician face to face encounter requirements with this patient on []. Medical Complications: Other (CAD) Custodial For: Assess Cardiopulm Status RN For Eval/Treatment: Yes Physical Therapy For: Evalulation/Treatment Occupational Therapy For: Evaluation/Treatment Home Health Aide For: Self-care SUPERVISOR COLD ROLLING For: Community Resources Pt Meets Homebound Status: Poor coordination w/ amb. POST DISCHARGE ORDERS: Activity Instructions for Disc: Activity as tolerated Weight Bearing Status after Di: Full weight bearing, As tolerated DIET AFTER DISCHARGE: Cardiac Wound/Incision Care: Change dressing CHECKS AFTER DISCHARGE: Checks after discharge: Check blood press - daily TREATMENT/EQUIPMENT ORDERS: Adaptive Equipment Issued: None, Front wheeled walker CERTIFICATION STATEMENT: Certification Statement: Certification Statement: Based on the above finding, I certify that this patient is confined to the home and needs intermittent intermediate care, physical therapy and/or speech therapy, or continues to need occupational therapy.~ This patient is under my care, and I have initiated the establishment of the plan of care.~ This patient will be followed by myself or a community physician who will periodically review the plan of care. Home Meds Active Scripts Labetalol Hcl (LABETALOL HCL) 200 Mg Tablet, 200 MG PO BID for . for 60 Days, #120 TAB Prov:CASTLE,NIAL K III DO 10/18/21 Multivits,Ca,Minerals/Iron/Fa (THERA-M TABLET) 1 Each Tablet, 1 TAB PO DAILY for SUPPLEMENT for 30 Days, #30 TAB Prov:LEANA LUU MD 07/25/20 Cholecalciferol (Vitamin D3) (Vitamin D3 ) 25 Mcg Tablet, 1000 UNIT PO DAILY for SUPPLEMENT for 30 Days, #30 TAB Prov:LEANA LUU MD 07/25/20 Polyethylene Glycol 3350 (POLYETHYLENE GLYCOL 3350) 17 Gm Powd.pack, 17 GM PO PRN DAILY PRN for CONSTIPATION for 30 Days, #30 PKT Prov:LEANA LUU MD 07/25/20 Docusate Sodium (DOK) 100 Mg Capsule, 100 MG PO BID for PREVENT HARD STOOLS for 30 Days, #60 CAP Prov:LEANA LUU MD 07/25/20 Mag Hydrox/Al Hydrox/Simeth (MAG-AL PLUS XS SUSPENSION) 30 Ml Oral.susp, 30 ML PO PRN Q3HRS PRN for HEARTBURN / GAS for 28 Days, #30 MISC Prov:LEANA LUU MD 07/25/20 Calcium Carbonate (CALCIUM CARBONATE) 200 Mg Tab.chew, 500 MG PO PRN Q3HRS PRN for UPSET STOMACH for 30 Days, #60 TAB.CHEW Prov:LEANA LUU MD 07/25/20 Acetaminophen (TYLENOL) 325 Mg Tablet, 650 MG PO PRN Q6HRS PRN for Headaches, Temp > 101.5F for 14 Days, #30 TAB Prov:LEANA LUU MD 07/25/20 Hydrocodone Bit/Acetaminophen (HYDROCODONE-APAP 5-325 ) 1 Tab Tablet, 1 TAB PO PRN Q4HRS PRN for MODERATE PAIN for 14 Days, #30 TAB Prov:LEANA LUU MD 07/25/20 Apixaban (ELIQUIS) 5 Mg Tablet, 5 MG PO BID for A FIB for 30 Days, #60 TAB Prov:LEANA LUU MD 07/25/20 Levothyroxine Sodium (LEVOTHYROXINE SODIUM) 50 Mcg Tablet, 50 TAB PO DAILY, #30 TAB 5 Refills Prov:KERLINE BROWN MD 02/25/15 Reported Medications Isosorbide Mononitrate (ISOSORBIDE MONONITRATE ER) 30 Mg Tab.er.24h, 1 TAB PO DAILY, #30 TAB 5 Refills 02/24/15 Hydrochlorothiazide (HYDROCHLOROTHIAZIDE TABLET) 12.5 Mg Tablet, 1 TAB PO DAILY, #30 TAB 5 Refills 02/24/15 Losartan Potassium (LOSARTAN POTASSIUM) 100 Mg Tablet, 1 TAB PO DAILY, #30 TAB 5 Refills 02/24/15 Citalopram Hydrobromide (CITALOPRAM HBR) 40 Mg Tablet, 1 TAB PO HS, #90 TAB 1 Refill 02/24/15 Simvastatin (SIMVASTATIN) 40 Mg Tablet, 1 TAB PO QHS, #30 TAB 5 Refills 02/24/15 Aspirin (ASPIR 81) 81 Mg Tablet.dr, 1 TAB PO DAILY, #30 TAB 5 Refills 02/24/15 Potassium Chloride (POTASSIUM CHLORIDE ) 10 Meq Capsule.er, 20 MEQ PO B IDWMEALS, TAB.SR 02/24/15 Zolpidem Tartrate (ZOLPIDEM TARTRATE) 10 Mg Tablet, 10 MG PO PRN QHS PRN for INSOMNIA, TAB 0 Refills 02/24/15 Cetirizine Hcl (CETIRIZINE HCL) 10 Mg Tablet, 1 TAB PO PRN DAILY PRN for CONGE STION, #30 TAB 5 Refills 02/24/15 Nebivolol Hcl (BYSTOLIC) 20 Mg Tablet, 1 TAB PO DAILY, #90 TAB 1 Refill 02/24/15 ROSALVA SOTOMAYOR III DO Oct 18, 2021 08:51
--- NOTE | 2021-10-18 10:54 | PDOC ---
CARDIO Progress Notes Date and Time Date of Service 10/18/21 Time of Evaluation 1050 Subjective Subjective: No Chest Pain, No shortness of breath, No Palpitations Vitals Vitals Vital Signs Date Time Temp Pulse Resp B/P (MAP) Pulse Ox O2 Delivery O2 Flow Rate FiO2 10/18/21 10:31 97.8 62 18 170/79 (109) 95 Room Air 97.8 10/17/21 20:00 2.0 Weight Weight [ ] Input and Output Intake and Output Intake and Output 10/18/21 07:00 Intake Total 2140 ml Balance 2140 ml Intake Oral 1140 ml IV Total 1000 ml # Voids 5 # Bowel Movements 1 Laboratory Labs Laboratory Tests Test 10/18/21 02:55 White Blood Count 17.1 x10^3/uL (4.0-11.0) Red Blood Count 5.47 x10^6/uL (3.50-5.40) Hemoglobin 11.1 g/dL (12.0-15.5) Hematocrit 37.2 % (36.0-47.0) Mean Corpuscular Volume 68 fL (79-100) Mean Corpuscular Hemoglobin 20 pg (25-35) Mean Corpuscular Hemoglobin Concent 30 g/dL (31-37) Red Cell Distribution Width 20.8 % (11.5-14.5) Platelet Count 413 x10^3/uL (140-400) Neutrophils (%) (Auto) 85 % (31-73) Lymphocytes (%) (Auto) 10 % (24-48) Monocytes (%) (Auto) 1 % (0-9) Eosinophils (%) (Auto) 3 % (0-3) Basophils (%) (Auto) 0 % (0-3) Neutrophils # (Auto) 14.5 x10^3/uL (1.8-7.7) Lymphocytes # (Auto) 1.7 x10^3/uL (1.0-4.8) Monocytes # (Auto) 0.2 x10^3/uL (0.0-1.1) Eosinophils # (Auto) 0.6 x10^3/uL (0.0-0.7) Basophils # (Auto) 0.1 x10^3/uL (0.0-0.2) Sodium Level 140 mmol/L (136-145) Potassium Level 4.2 mmol/L (3.5-5.1) Chloride Level 104 mmol/L (98-107) Carbon Dioxide Level 27 mmol/L (21-32) Anion Gap 9 (6-14) Blood Urea Nitrogen 24 mg/dL (7-20) Creatinine 1.6 mg/dL (0.6-1.0) Estimated GFR (Cockcroft-Gault) 31.3 Glucose Level 86 mg/dL (70-99) Calcium Level 8.7 mg/dL (8.5-10.1) Physical Exam HEENT: Neck Supple W Full Motion Chest: Symmetric LUNGS: Clear to Auscultation Heart: S1S2, RRR (SR) Abdomen: Soft N/T Extremities: No Edema, No Calf Tenderness Neurology: alert, oriented, follow commands Assessment Assessment 1. NSTEMI: LHC revealed 3VD with patent stents in the LAD and circumflex 2. HTN urgency: now controlled 3. AFIB RVR: paroxysmal by hx. presently SR 4. HLP; statin 5. Chronic diastolic CHF; compensated 6. Hypothyroidism: TSH not on goal 7. CAD: past stents 8. Leukocytosis; ID following 9. SHASHANK, hyperkalemia; ARB, HCTZ held. improved s/p IVFs. nephrology following Recommendations Secondary prevention measures. ASA therapy. Eliquis for stroke prevention Avoid nephrotoxins. Monitor renal function Will plan for outpatient PCI of the right coronary artery with likely orbital atherectomy. Supportive care Follow up in our office has been arranged with Dr. Shamir Ricoicifation of Admission Dx: Justifications for Admission: Justification of Admission Dx: Yes HILDA PADILLA APRN Oct 18, 2021 10:54
--- NOTE | 2021-10-18 13:32 | PDOC ---
Infectious Disease Note Subjective: Subjective Pt feels better afebrile WBC and creat decreasing Vital Signs: Vital Signs Vital Signs Date Time Temp Pulse Resp B/P (MAP) Pulse Ox O2 Delivery O2 Flow Rate FiO2 10/18/21 10:31 97.8 62 18 170/79 (109) 95 Room Air 97.8 10/17/21 20:00 2.0 Physical Exam: PHYSICAL EXAM GENERAL: Alert, oriented female, not in distress. HEENT: no icterus, oral lesions, normocephalic atraumatic NECK: Supple, no JVP, no lymphadenopathy. LUNGS: Clear. HEART: S1, S2, regular. ABDOMEN: Soft, nontender, no organomegaly. EXTREMITIES: No edema, cyanosis. SKIN: Unremarkable. NEUROLOGIC: The patient is alert, awake, and appropriate. No focal neurologic deficit. Medications: Inpatient Meds: Medications reviewed. Labs: Lab Laboratory Tests Test 10/18/21 02:55 White Blood Count 17.1 x10^3/uL (4.0-11.0) Red Blood Count 5.47 x10^6/uL (3.50-5.40) Hemoglobin 11.1 g/dL (12.0-15.5) Hematocrit 37.2 % (36.0-47.0) Mean Corpuscular Volume 68 fL (79-100) Mean Corpuscular Hemoglobin 20 pg (25-35) Mean Corpuscular Hemoglobin Concent 30 g/dL (31-37) Red Cell Distribution Width 20.8 % (11.5-14.5) Platelet Count 413 x10^3/uL (140-400) Neutrophils (%) (Auto) 85 % (31-73) Lymphocytes (%) (Auto) 10 % (24-48) Monocytes (%) (Auto) 1 % (0-9) Eosinophils (%) (Auto) 3 % (0-3) Basophils (%) (Auto) 0 % (0-3) Neutrophils # (Auto) 14.5 x10^3/uL (1.8-7.7) Lymphocytes # (Auto) 1.7 x10^3/uL (1.0-4.8) Monocytes # (Auto) 0.2 x10^3/uL (0.0-1.1) Eosinophils # (Auto) 0.6 x10^3/uL (0.0-0.7) Basophils # (Auto) 0.1 x10^3/uL (0.0-0.2) Sodium Level 140 mmol/L (136-145) Potassium Level 4.2 mmol/L (3.5-5.1) Chloride Level 104 mmol/L (98-107) Carbon Dioxide Level 27 mmol/L (21-32) Anion Gap 9 (6-14) Blood Urea Nitrogen 24 mg/dL (7-20) Creatinine 1.6 mg/dL (0.6-1.0) Estimated GFR (Cockcroft-Gault) 31.3 Glucose Level 86 mg/dL (70-99) Calcium Level 8.7 mg/dL (8.5-10.1) Objective: Assessment: 1. Leukocytosis. No obvious signs or symptoms of localizing infection at this time patient could have a myeloproliferative disorder though last white count in our system is normal from 2019. 2. Chest pain. 3. Accelerated/malignant hypertension. 4. Coronary artery disease. Plan: Plan of Care Leukocytosis could be reactive now has SHASHANK, anemia Monitor off antibiotics Cont Supportive care MIGUEL ÁNGEL PRASAD MD Oct 18, 2021 13:31
--- NOTE | 2021-10-18 13:55 | SNU/HH DC ---
DISCHARGE ORDERS DISCHARGE INFORMATION: DISCHARGE DATE: Oct 18, 2021 FINAL DIAGNOSIS Problems Medical Problems: (1) Atrial fibrillation with rapid ventricular response Status: Acute (2) Leukocytosis Status: Acute (3) Renal insufficiency Status: Acute CONDITION ON DISCHARGE: Stable CODE STATUS: Code Status: Full ASSISTED: SNF STAY <30 DAYS: No HOSPICE: HOSPICE: No HOSPICE EVAL & TREAT: No POST DISCHARGE ORDERS: ACTIVITY ORDERS: Activity as tolerated WEIGHT BEARING STATUS: Full weight bearing, As tolerated DIET AFTER DISCHARGE: Cardiac WOUND/INCISION CARE: Change dressing CHECKS AFTER DISCHARGE: CHECKS AFTER DISCHARGE: Check blood press - daily TREATMENT/EQUIPMENT ORDERS: ADAPTIVE EQUIPMENT NEEDED: Front wheeled walker Physical Therapy For: Evalulation/Treatment Occupational Therapy For: Evaluation/Treatment DISCHARGE MEDICATIONS: Home Meds Active Scripts Labetalol Hcl (LABETALOL HCL) 200 Mg Tablet, 200 MG PO BID for . for 60 Days, #120 TAB Prov:CASTLE,NIAL K III DO 10/18/21 Multivits,Ca,Minerals/Iron/Fa (THERA-M TABLET) 1 Each Tablet, 1 TAB PO DAILY for SUPPLEMENT for 30 Days, #30 TAB Prov:LEANA LUU MD 07/25/20 Cholecalciferol (Vitamin D3) (Vitamin D3 ) 25 Mcg Tablet, 1000 UNIT PO DAILY for SUPPLEMENT for 30 Days, #30 TAB Prov:LEANA LUU MD 07/25/20 Polyethylene Glycol 3350 (POLYETHYLENE GLYCOL 3350) 17 Gm Powd.pack, 17 GM PO PRN DAILY PRN for CONSTIPATION for 30 Days, #30 PKT Prov:LEANA LUU MD 07/25/20 Docusate Sodium (DOK) 100 Mg Capsule, 100 MG PO BID for PREVENT HARD STOOLS for 30 Days, #60 CAP Prov:LEANA LUU MD 07/25/20 Mag Hydrox/Al Hydrox/Simeth (MAG-AL PLUS XS SUSPENSION) 30 Ml Oral.susp, 30 ML PO PRN Q3HRS PRN for HEARTBURN / GAS for 28 Days, #30 MISC Prov:LEANA LUU MD 07/25/20 Calcium Carbonate (CALCIUM CARBONATE) 200 Mg Tab.chew, 500 MG PO PRN Q3HRS PRN for UPSET STOMACH for 30 Days, #60 TAB.CHEW Prov:LEANA LUU MD 07/25/20 Acetaminophen (TYLENOL) 325 Mg Tablet, 650 MG PO PRN Q6HRS PRN for Headaches, Temp > 101.5F for 14 Days, #30 TAB Prov:LEANA LUU MD 07/25/20 Hydrocodone Bit/Acetaminophen (HYDROCODONE-APAP 5-325 ) 1 Tab Tablet, 1 TAB PO PRN Q4HRS PRN for MODERATE PAIN for 14 Days, #30 TAB Prov:LEANA LUU MD 07/25/20 Apixaban (ELIQUIS) 5 Mg Tablet, 5 MG PO BID for A FIB for 30 Days, #60 TAB Prov:LEANA LUU MD 07/25/20 Levothyroxine Sodium (LEVOTHYROXINE SODIUM) 50 Mcg Tablet, 50 TAB PO DAILY, #30 TAB 5 Refills Prov:KERLINE BROWN MD 02/25/15 Reported Medications Isosorbide Mononitrate (ISOSORBIDE MONONITRATE ER) 30 Mg Tab.er.24h, 1 TAB PO DAILY, #30 TAB 5 Refills 02/24/15 Hydrochlorothiazide (HYDROCHLOROTHIAZIDE TABLET) 12.5 Mg Tablet, 1 TAB PO DAILY, #30 TAB 5 Refills 02/24/15 Losartan Potassium (LOSARTAN POTASSIUM) 100 Mg Tablet, 1 TAB PO DAILY, #30 TAB 5 Refills 02/24/15 Citalopram Hydrobromide (CITALOPRAM HBR) 40 Mg Tablet, 1 TAB PO HS, #90 TAB 1 Refill 02/24/15 Simvastatin (SIMVASTATIN) 40 Mg Tablet, 1 TAB PO QHS, #30 TAB 5 Refills 02/24/15 Aspirin (ASPIR 81) 81 Mg Tablet.dr, 1 TAB PO DAILY, #30 TAB 5 Refills 02/24/15 Potassium Chloride (POTASSIUM CHLORIDE ) 10 Meq Capsule.er, 20 MEQ PO BIDWMEALS, TAB.SR 02/24/15 Zolpidem Tartrate (ZOLPIDEM TARTRATE) 10 Mg Tablet, 10 MG PO PRN QHS PRN for INSOMNIA, TAB 0 Refills 02/24/15 Cetirizine Hcl (CETIRIZINE HCL) 10 Mg Tablet, 1 TAB PO PRN DAILY PRN for CONGESTION, #30 TAB 5 Refills 02/24/15 Nebivolol Hcl (BYSTOLIC) 20 Mg Tablet, 1 TAB PO DAILY, #90 TAB 1 Refill 02/24/15 NAYANA CLAIRE MD Oct 18, 2021 13:55
--- NOTE | 2021-10-18 14:05 | NUR ---
SS following up with discharge planning. SS reviewed pt chart and discussed with pt RN. Pt is currently on room air. COVID19 negative. Pt is LTC resident from [facility], ; fax [phone]. Discharge orders received and faxed to facility. Pt will discharge today and return to [facility]. [place] to provide transportation. Pt and pt's RN notified.
[2021-10-18] MEDS ORDERED: ISOSORBIDE MONONITRATE ER 30 MG TAB.ER.24H PO ONE (15:00)
[2021-10-18] MEDS: ACETAMINOPHEN 325 MG TABLET. PO PRN (15:30)
[2021-10-18] MEDS ORDERED: cloNIDine HCL 0.2 MG TABLET PO ONE (15:45)
[2021-10-18] MEDS ORDERED: cloNIDine HCL 0.1 MG TABLET PO ONE (17:30)
[2021-10-18] MEDS ORDERED: cloNIDine TTS-1 1 PATCH PATCH.TDWK TD SCH (17:30)
--- NOTE | 2021-10-18 20:52 | NUR ---
Unable to discharge patient d/t elevated BP. Per Dr. Izaguirre, pt could go if <170 systolic. BP at time of transportation arrival (approx. 1755) was 176/81, about an hour after giving BP meds. Patient symptomatic with a headache and overall not feeling good as well. About 15 minutes after transportation left, patient's BP came down to 165/84.
[2021-10-18] MEDS: CITALOPRAM 20 MG TABLET. PO SCH (21:10)
[2021-10-18] MEDS: SIMVASTATIN 40 MG TABLET. PO SCH (21:10)
[2021-10-19] MEDS: ZOLPIDEM 5 MG TABLET. PO PRN (00:25)
[2021-10-19 02:39] VITALS: BP 176/81
[2021-10-19 06:11] LABS: BASO # 0.1 x10^3/uL (0.0-0.2); BASO % 1 % (0-3); EOS # 0.4 x10^3/uL (0.0-0.7); EOS % 2 % (0-3); HEMATOCRIT 37.9 % (36.0-47.0); HEMOGLOBIN 11.4 g/dL (12.0-15.5); LYMPH # 1.2 x10^3/uL (1.0-4.8); LYMPH % 6 % (24-48); MEAN CORPUSCULAR HEMOGLOBIN 20 pg (25-35); MEAN CORPUSCULAR HGB CONC 30 g/dL (31-37); MEAN CORPUSCULAR VOLUME 68 fL (79-100); MONO # 0.3 x10^3/uL (0.0-1.1); MONO % 1 % (0-9); NEUT # 17.9 x10^3/uL (1.8-7.7); NEUT % 90 % (31-73); PLATELET COUNT 435 x10^3/uL (140-400); RED BLOOD COUNT 5.58 x10^6/uL (3.50-5.40); RED CELL DISTRIBUTION WIDTH 20.4 % (11.5-14.5); WHITE BLOOD COUNT 19.9 x10^3/uL (4.0-11.0)
[2021-10-19 06:31] LABS: CREATININE 1.1 mg/dL (0.6-1.0); GFR 48.3; POTASSIUM 4.1 mmol/L (3.5-5.1)
[2021-10-19] MEDS: LEVOTHYROXINE 75 MCG TABLET PO SCH (06:31)
[2021-10-19 07:00] VITALS: BP 149/72
[2021-10-19] MEDS: MULTIVITAMIN with MINERAL TABLET. PO SCH (07:51)
[2021-10-19] MEDS: ASPIRIN ENTERIC COATED 81 MG TABLET.DR. PO SCH (07:51)
[2021-10-19] MEDS: DOCUSATE SODIUM 100 MG CAPSULE. PO SCH (07:51)
[2021-10-19] MEDS: LABETALOL HCL 200 MG TABLET PO SCH (07:52)
[2021-10-19] MEDS: CHOLECALCIFEROL (VITAMIN D3) 1,000 UNIT TABLET PO SCH (07:52)
[2021-10-19] MEDS: APIXABAN 2.5 MG TABLET. PO SCH (07:52)
[2021-10-19] MEDS ORDERED: ISOSORBIDE MONONITRATE ER 30 MG TAB.ER.24H PO SCH (09:00)
--- NOTE | 2021-10-19 10:33 | SNU/HH DC ---
DISCHARGE ORDERS DISCHARGE INFORMATION: DISCHARGE DATE: Oct 18, 2021 FINAL DIAGNOSIS Problems Medical Problems: (1) Atrial fibrillation with rapid ventricular response Status: Acute (2) Leukocytosis Status: Acute (3) Renal insufficiency Status: Acute CONDITION ON DISCHARGE: Stable CODE STATUS: Code Status: Full NURSING HOME: SNF STAY <30 DAYS: No HOSPICE: HOSPICE: No HOSPICE EVAL & TREAT: No LTAC: ADMIT TO LTAC: No POST DISCHARGE ORDERS: ACTIVITY ORDERS: Activity as tolerated WEIGHT BEARING STATUS: Full weight bearing, As tolerated DIET AFTER DISCHARGE: Cardiac WOUND/INCISION CARE: Change dressing CHECKS AFTER DISCHARGE: CHECKS AFTER DISCHARGE: Check blood press - daily, Check your Temp as needed FOLLOW-UP: ADDITIONAL FOLLOW-UP: Primary care provider within two weeks of discharge TREATMENT/EQUIPMENT ORDERS: ADAPTIVE EQUIPMENT NEEDED: None DISCHARGE MEDICATIONS: Home Meds Active Scripts Labetalol Hcl (LABETALOL HCL) 200 Mg Tablet, 200 MG PO BID for . for 60 Days, #120 TAB Prov:CASTLE,NIAL K III DO 10/18/21 Multivits,Ca,Minerals/Iron/Fa (THERA-M TABLET) 1 Each Tablet, 1 TAB PO DAILY for SUPPLEMENT for 30 Days, #30 TAB Prov:LEANA LUU MD 07/25/20 Cholecalciferol (Vitamin D3) (Vitamin D3 ) 25 Mcg Tablet, 1000 UNIT PO DAILY for SUPPLEMENT for 30 Days, #30 TAB Prov:LEANA LUU MD 07/25/20 Polyethylene Glycol 3350 (POLYETHYLENE GLYCOL 3350) 17 Gm Powd.pack, 17 GM PO PRN DAILY PRN for CONSTIPATION for 30 Days, #30 PKT Prov:LEANA LUU MD 07/25/20 Docusate Sodium (DOK) 100 Mg Capsule, 100 MG PO BID for PREVENT HARD STOOLS for 30 Days, #60 CAP Prov:LEANA LUU MD 07/25/20 Mag Hydrox/Al Hydrox/Simeth (MAG-AL PLUS XS SUSPENSION) 30 Ml Oral.susp, 30 ML PO PRN Q3HRS PRN for HEARTBURN / GAS for 28 Days, #30 MISC Prov:LEANA LUU MD 07/25/20 Calcium Carbonate (CALCIUM CARBONATE) 200 Mg Tab.chew, 500 MG PO PRN Q3HRS PRN for UPSET STOMACH for 30 Days, #60 TAB.CHEW Prov:LEANA LUU MD 07/25/20 Acetaminophen (TYLENOL) 325 Mg Tablet, 650 MG PO PRN Q6HRS PRN for Headaches, Temp > 101.5F for 14 Days, #30 TAB Prov:LEANA LUU MD 07/25/20 Hydrocodone Bit/Acetaminophen (HYDROCODONE-APAP 5-325 ) 1 Tab Tablet, 1 TAB PO PRN Q4HRS PRN for MODERATE PAIN for 14 Days, #30 TAB Prov:LEANA LUU MD 07/25/20 Apixaban (ELIQUIS) 5 Mg Tablet, 5 MG PO BID for A FIB for 30 Days, #60 TAB Prov:LEANA LUU MD 07/25/20 Levothyroxine Sodium (LEVOTHYROXINE SODIUM) 50 Mcg Tablet, 50 TAB PO DAILY, #30 TAB 5 Refills Prov:KERLINE BROWN MD 02/25/15 Reported Medications Isosorbide Mononitrate (ISOSORBIDE MONONITRATE ER) 30 Mg Tab.er.24h, 1 TAB PO DAILY, #30 TAB 5 Refills 02/24/15 Hydrochlorothiazide (HYDROCHLOROTHIAZIDE TABLET) 12.5 Mg Tablet, 1 TAB PO DAILY, #30 TAB 5 Refills 02/24/15 Losartan Potassium (LOSARTAN POTASSIUM) 100 Mg Tablet, 1 TAB PO DAILY, #30 TAB 5 Refills 02/24/15 Citalopram Hydrobromide (CITALOPRAM HBR) 40 Mg Tablet, 1 TAB PO HS, #90 TAB 1 Refill 02/24/15 Simvastatin (SIMVASTATIN) 40 Mg Tablet, 1 TAB PO QHS, #30 TAB 5 Refills 02/24/15 Aspirin (ASPIR 81) 81 Mg Tablet.dr, 1 TAB PO DAILY, #30 TAB 5 Refills 02/24/15 Potassium Chloride (POTASSIUM CHLORIDE ) 10 Meq Capsule.er, 20 MEQ PO BIDWMEALS, TAB.SR 02/24/15 Zolpidem Tartrate (ZOLPIDEM TARTRATE) 10 Mg Tablet, 10 MG PO PRN QHS PRN for INSOMNIA, TAB 0 Refills 02/24/15 Cetirizine Hcl (CETIRIZINE HCL) 10 Mg Tablet, 1 TAB PO PRN DAILY PRN for CONGESTION, #30 TAB 5 Refills 02/24/15 Nebivolol Hcl (BYSTOLIC) 20 Mg Tablet, 1 TAB PO DAILY, #90 TAB 1 Refill 02/24/15 ROSALVA SOTOMAYOR III DO Oct 19, 2021 10:33
[2021-10-19 10:49] VITALS: BP 131/60
--- NOTE | 2021-10-19 11:03 | PDOC ---
Renal-Progress Notes Subjective Notes Notes NO COMPLAINTS History of Present Illness Hx of present illness STABLE Vitals Vitals Vital Signs Date Time Temp Pulse Resp B/P (MAP) Pulse Ox O2 Delivery O2 Flow Rate FiO2 10/19/21 10:49 98.7 62 18 131/60 (83) 90 Room Air 98.7 Weight Weight [ ] I.O. Intake and Output Intake and Output 10/19/21 07:00 Intake Total 1470 ml Balance 1470 ml Intake Oral 1470 ml # Voids 3 Labs Labs Laboratory Tests Test 10/19/21 05:35 White Blood Count 19.9 x10^3/uL (4.0-11.0) Red Blood Count 5.58 x10^6/uL (3.50-5.40) Hemoglobin 11.4 g/dL (12.0-15.5) Hematocrit 37.9 % (36.0-47.0) Mean Corpuscular Volume 68 fL (79-100) Mean Corpuscular Hemoglobin 20 pg (25-35) Mean Corpuscular Hemoglobin Concent 30 g/dL (31-37) Red Cell Distribution Width 20.4 % (11.5-14.5) Platelet Count 435 x10^3/uL (140-400) Neutrophils (%) (Auto) 90 % (31-73) Lymphocytes (%) (Auto) 6 % (24-48) Monocytes (%) (Auto) 1 % (0-9) Eosinophils (%) (Auto) 2 % (0-3) Basophils (%) (Auto) 1 % (0-3) Neutrophils # (Auto) 17.9 x10^3/uL (1.8-7.7) Lymphocytes # (Auto) 1.2 x10^3/uL (1.0-4.8) Monocytes # (Auto) 0.3 x10^3/uL (0.0-1.1) Eosinophils # (Auto) 0.4 x10^3/uL (0.0-0.7) Basophils # (Auto) 0.1 x10^3/uL (0.0-0.2) Sodium Level 137 mmol/L (136-145) Potassium Level 4.1 mmol/L (3.5-5.1) Chloride Level 102 mmol/L (98-107) Carbon Dioxide Level 25 mmol/L (21-32) Anion Gap 10 (6-14) Blood Urea Nitrogen 15 mg/dL (7-20) Creatinine 1.1 mg/dL (0.6-1.0) Estimated GFR (Cockcroft-Gault) 48.3 Glucose Level 101 mg/dL (70-99) Calcium Level 9.0 mg/dL (8.5-10.1) Review of Systems Constitutional: yes: alert, oriented Ears/Nose/Throat: Yes: no symptom reported Eyes: Yes: no symptom reported Pulmonary: Yes no symptom reported Cardiovascular: Yes no symptom reported Gastrointestional: Yes: no symptom reported Genitourinary: Yes: no symptom reported Musculoskeletal: Yes: no symptom reported Skin: Yes no symptom reported Psychiatric/Neurological: Yes: no symptom reported Physical Exam General Appearance: no apparent distress Skin: warm Respiratory: bilateral CTA Heart: S1S2 Abdomen: soft, bowel sounds present Genitourinary: bladder flat Extremities: atrophy Neurology: alert, follow commands Assessment Assessment IMP [id number] MALIGNANT ACCELERATED HTN-RESOLVED CAD HX - CHEST PAIN AFIB RVR NSTEMI LEUCOCYTOSIS PLAN RENAL FXN STABLE WILL SIGN OFF FREDI MAXWELL MD Oct 19, 2021 11:03
--- NOTE | 2021-10-19 11:21 | DS ---
DATE OF DISCHARGE: 10/19/2021 ADMITTING DIAGNOSES: Chest pain, atrial fibrillation, acute kidney injury. DISCHARGE DIAGNOSES: 1. Resolving chest pain, status post cardiac catheterization, no new stents were placed (she has previous 5 stents). 2. History of coronary artery disease, chronic anticoagulation, on Eliquis, allergic rhinitis, constipation, hypertension, resolving acute kidney injury after cardiac catheterization, history of angina, hypothyroidism, hyperlipidemia and insomnia. HOSPITAL COURSE: The patient is a pleasant elderly female who has a previous known 5 coronary stents. She presented with chest pain. 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 After the cath, she had issues with hypertension and acute kidney injury and leukocytosis. I gave her empiric IV antibiotics. We got her blood pressure is down. Her creatinine seems to have resolved. It is down to 1.1 from high of 2.1. I saw and examined her today, she is doing well. We plan to discharge. DISPOSITION: Home. DISPOSITION: Long-term care. ACTIVITY: As tolerated. DIET: Low sodium. DISCHARGE MEDICATIONS: Please see the MRAD. Labetalol 200 p.o. b.i.d., p.r.n. Tylenol, Eliquis 5 b.i.d., aspirin 81 a day, calcium, cetirizine 10 a day, vitamin D, citalopram 40 a day, docusate, hydrochlorothiazide 12.5 a day, hydrocodone p.r.n., Imdur 30 a day, Synthroid 50 a day, losartan 100 a day, Milk of Magnesia, vitamins, Bystolic 20 daily, MiraLax, potassium 20 a day, simvastatin 40 a day and Ambien 10 at bedtime. Total time 34 minutes. MYRANDA/KULDEEP DR: Jacky TID: [id number]
--- NOTE | 2021-10-19 12:40 | NUR ---
SS following up with discharge planning. SS reviewed pt chart and discussed with pt RN. Pt is resident from [facility], ; fax [phone]. Pt is currently on room air. COVID19 negative. Discharge orders received and phoned and faxed to [facility]. Pt will discharge today and return to [facility] between 1500 and 1530. [place] to provide transportation. Pt and pt's RN notified.
--- NOTE | 2021-10-19 14:31 | PDOC ---
CARDIO Progress Notes Date and Time Date of Service 10/19/2021 Time of Evaluation 1400 Subjective Subjective: No Chest Pain, No shortness of breath, No Palpitations, Other (was asleep) Vitals Vitals Vital Signs Date Time Temp Pulse Resp B/P (MAP) Pulse Ox O2 Delivery O2 Flow Rate FiO2 10/19/21 10:49 98.7 62 18 131/60 (83) 90 Room Air 98.7 Weight Weight [ ] Input and Output Intake and Output Intake and Output 10/19/21 07:00 Intake Total 1470 ml Balance 1470 ml Intake Oral 1470 ml # Voids 3 Laboratory Labs Laboratory Tests Test 10/19/21 05:35 White Blood Count 19.9 x10^3/uL (4.0-11.0) Red Blood Count 5.58 x10^6/uL (3.50-5.40) Hemoglobin 11.4 g/dL (12.0-15.5) Hematocrit 37.9 % (36.0-47.0) Mean Corpuscular Volume 68 fL (79-100) Mean Corpuscular Hemoglobin 20 pg (25-35) Mean Corpuscular Hemoglobin Concent 30 g/dL (31-37) Red Cell Distribution Width 20.4 % (11.5-14.5) Platelet Count 435 x10^3/uL (140-400) Neutrophils (%) (Auto) 90 % (31-73) Lymphocytes (%) (Auto) 6 % (24-48) Monocytes (%) (Auto) 1 % (0-9) Eosinophils (%) (Auto) 2 % (0-3) Basophils (%) (Auto) 1 % (0-3) Neutrophils # (Auto) 17.9 x10^3/uL (1.8-7.7) Lymphocytes # (Auto) 1.2 x10^3/uL (1.0-4.8) Monocytes # (Auto) 0.3 x10^3/uL (0.0-1.1) Eosinophils # (Auto) 0.4 x10^3/uL (0.0-0.7) Basophils # (Auto) 0.1 x10^3/uL (0.0-0.2) Sodium Level 137 mmol/L (136-145) Potassium Level 4.1 mmol/L (3.5-5.1) Chloride Level 102 mmol/L (98-107) Carbon Dioxide Level 25 mmol/L (21-32) Anion Gap 10 (6-14) Blood Urea Nitrogen 15 mg/dL (7-20) Creatinine 1.1 mg/dL (0.6-1.0) Estimated GFR (Cockcroft-Gault) 48.3 Glucose Level 101 mg/dL (70-99) Calcium Level 9.0 mg/dL (8.5-10.1) Review of Systems Constitutional: yes: alert, oriented Ears/Nose/Throat: Yes: no symptom reported Eyes: Yes: no symptom reported Pulmonary: Yes no symptom reported Cardiovascular: Yes no symptom reported Gastrointestional: Yes: no symptom reported Genitourinary: Yes: no symptom reported Musculoskeletal: Yes: no symptom reported Skin: Yes no symptom reported Psychiatric/Neurological: Yes: no symptom reported Physical Exam HEENT: Neck Supple W Full Motion Chest: Symmetric LUNGS: Clear to Auscultation Heart: S1S2, irregularly irregular (off tele) Abdomen: Soft N/T Extremities: No Edema, No Calf Tenderness Neurology: alert, oriented, follow commands Assessment Assessment 1. NSTEMI: LHC revealed 3VD with patent stents in the LAD and circumflex 2. HTN urgency: now controlled 3. AFIB RVR: paroxysmal by hx. presently SR 4. HLP; statin 5. Chronic diastolic CHF; compensated 6. Hypothyroidism: TSH not on goal per PCP 7. CAD: past stents 8. Leukocytosis; ID following 9. SHASHANK, hyperkalemia; ARB, HCTZ held. much improved. nephrology following Recommendations Secondary prevention measures. ASA therapy. Eliquis for stroke prevention Avoid nephrotoxins. Monitor renal function Will plan for outpatient PCI of the right coronary artery with likely orbital atherectomy. Supportive care Follow up in our office has been arranged with Dr. Shamir HENDERSON today Justicifation of Admission Dx: Justifications for Admission: Justification of Admission Dx: Yes MORRIS DAILEY APRN Oct 19, 2021 14:31
== END 2021-10-19 15:05 | DRG 280 ==
LOC: ER 02:08 → 6 SOUTH 06:25
PROVIDERS: ADMIT Internal Medicine; ATTEND Internal Medicine
PROC: 4A023N7 Measurement of Cardiac Sampling and Pressure, Left Heart, Percutaneous Approach (ICD-10-PCS; principal; 2021-10-12)
PROC: B2111ZZ Fluoroscopy of Multiple Coronary Arteries using Low Osmolar Contrast (ICD-10-PCS; 2021-10-12)
PROC: B2151ZZ Fluoroscopy of Left Heart using Low Osmolar Contrast (ICD-10-PCS; 2021-10-12)
DX: I21.4 Non-ST elevation (NSTEMI) myocardial infarction (principal); N17.0 Acute kidney failure with tubular necrosis; I50.32 Chronic diastolic (congestive) heart failure; D64.9 Anemia, unspecified; D72.829 Elevated white blood cell count, unspecified; E03.9 Hypothyroidism, unspecified; E78.5 Hyperlipidemia, unspecified; E87.5 Hyperkalemia; F41.9 Anxiety disorder, unspecified; I16.0 Hypertensive urgency; I25.10 Atherosclerotic heart disease of native coronary artery without angina pectoris; I48.0 Paroxysmal atrial fibrillation; K59.00 Constipation, unspecified; N18.9 Chronic kidney disease, unspecified; Z72.0 Tobacco use; Z79.01 Long term (current) use of anticoagulants; Z82.49 Family history of ischemic heart disease and other diseases of the circulatory system; Z86.16 Personal history of COVID-19; Z95.5 Presence of coronary angioplasty implant and graft; M19.90 Unspecified osteoarthritis, unspecified site
CPT/HCPCS: 36415; 71045; 71250; 74176; 80048; 80053; 80061; 80307; 81001; 83735; 83880; 84443; 84484; 85007; 85025; 85027; 85520; 87428; 93005; 93306; 93458; 96374; 99152; 99153; C1894; J0360; J0696; J1160; J1644; J1940; J2250; J2405; J3010; J3490; J7030; Q9967; U0003; 99285-25; C8929; G0378

== ENCOUNTER 2021-11-25 17:54 | Inpatient (IN) | payer MEDICARE, MEDICAID ==
[~2021-11-25] VITALS: Ht 157.5 cm; Wt 54.3 kg
[~2021-11-25 17:54] MED LIST changes: +LABE200T4 PO
--- NOTE | 2021-11-25 19:35 | RAD ---
INDICATION: Reason: abn labs / Spl. Instructions: / History: COMPARISON: October 11, 2021 FINDINGS: Single view of chest obtained. Calcific atherosclerosis with cardiomediastinal silhouette similar to prior. Mild interstitial opacities at the lung bases. Calcified nodule could be sequela of chronic granulomatous disease. IMPRESSION: * Mild interstitial opacities at lung bases could be atelectasis or infiltrate. Electronically signed by: Bart العراقي MD (11/25/2021 7:32 PM) [id number]
--- NOTE | 2021-11-25 19:44 | PHYS DOC ---
Past Medical History Past Medical History: A-Fib, Anemia, Anxiety, CAD, CHF, Depression, High Cholesterol, Hypertension, Hypothyroid, Sinusitis Additional Past Medical Histor: FALLS, renal disease? Past Surgical History: Other Additional Past Surgical Histo: 5 cardiac stents, otherwise unknown Smoking Status: Former Smoker Alcohol Use: None Drug Use: None General Adult EDM: Chief Complaint: ABNORMAL LABS HPI: HPI: Patient is a 76 year old female who presents via EMS from [facility] with malaise and abnormal lab values. EMS reports creatinine elevation of 5.9 with BUN elevation of 114 and absence of history of renal disease. Patient's only complaint is that she "feels sick." No other complaints per patient or per EMS. Review of Systems: Review of Systems: 12 systems reviewed. ROS negative or noncontributory except as mentioned in HPI. Heart Score: C/O Chest Pain: No Allergies: Allergies: Allergies Coded Allergies Type Severity Reaction Last Updated Verified amlodipine Allergy Severe lip swelling 10/11/21 Yes hydralazine Allergy Intermediate Rash 10/11/21 Yes sulfamethoxazole Allergy Intermediate 10/11/21 Yes trimethoprim Allergy Intermediate 10/11/21 Yes morphine Adverse Reaction Intermediate 10/12/21 Yes Physical Exam: PE: Constitutional: Thin, chronically ill-appearing, no acute distress. HENT: Normocephalic, atraumatic, bilateral external ears normal, nose normal. Eyes: EOMI, conjunctiva normal, no discharge. Neck: Normal range of motion, no stridor. Cardiovascular: Heart regular rate and rhythm. Lungs & Thorax: Equal thoracic expansion, no increased work of breathing. Abdomen: Bowel sounds normal, soft, no tenderness, no masses, no pulsatile masses. Skin: Warm, dry, no erythema, no rash. Extremities: No tenderness, no cyanosis, no clubbing, ROM intact, no edema. Neurologic: Alert and oriented, no focal deficits noted. Current Patient Data: Labs: Laboratory Tests Test 11/25/21 19:35 11/25/21 21:35 White Blood Count 19.3 x10^3/uL (4.0-11.0) Red Blood Count 5.85 x10^6/uL (3.50-5.40) Hemoglobin 12.7 g/dL (12.0-15.5) Hematocrit 40.0 % (36.0-47.0) Mean Corpuscular Volume 68 fL (79-100) Mean Corpuscular Hemoglobin 22 pg (25-35) Mean Corpuscular Hemoglobin Concent 32 g/dL (31-37) Red Cell Distribution Width 20.5 % (11.5-14.5) Platelet Count 463 x10^3/uL (140-400) Neutrophils (%) (Auto) 90 % (31-73) Lymphocytes (%) (Auto) 5 % (24-48) Monocytes (%) (Auto) 1 % (0-9) Eosinophils (%) (Auto) 3 % (0-3) Basophils (%) (Auto) 1 % (0-3) Neutrophils # (Auto) 17.4 x10^3/uL (1.8-7.7) Lymphocytes # (Auto) 0.9 x10^3/uL (1.0-4.8) Monocytes # (Auto) 0.3 x10^3/uL (0.0-1.1) Eosinophils # (Auto) 0.6 x10^3/uL (0.0-0.7) Basophils # (Auto) 0.1 x10^3/uL (0.0-0.2) Segmented Neutrophils % 85 % (35-66) Band Neutrophils % 7 % (0-9) Lymphocytes % 4 % (24-48) Monocytes % 1 % (0-10) Eosinophils % 3 % (0-5) Platelet Estimate Increased (ADEQUATE) Hypochromasia Mod Poikilocytosis Slight Anisocytosis Mod Microcytosis Marked Ovalocytes Few Schistocytes Occ Sodium Level 132 mmol/L (136-145) Potassium Level 5.5 mmol/L (3.5-5.1) Chloride Level 96 mmol/L (98-107) Carbon Dioxide Level 17 mmol/L (21-32) Anion Gap 19 (6-14) Blood Urea Nitrogen 132 mg/dL (7-20) Creatinine 6.4 mg/dL (0.6-1.0) Estimated GFR (Cockcroft-Gault) 6.3 BUN/Creatinine Ratio 21 (6-20) Glucose Level 79 mg/dL (70-99) Lactic Acid Level 0.9 mmol/L (0.4-2.0) Calcium Level 8.9 mg/dL (8.5-10.1) Phosphorus Level 7.8 mg/dL (2.6-4.7) Magnesium Level 3.4 mg/dL (1.8-2.4) Total Bilirubin 0.7 mg/dL (0.2-1.0) Aspartate Amino Transf (AST/SGOT) 19 U/L (15-37) Alanine Aminotransferase (ALT/SGPT) 14 U/L (14-59) Alkaline Phosphatase 95 U/L (46-116) Total Protein 7.1 g/dL (6.4-8.2) Albumin 4.2 g/dL (3.4-5.0) Albumin/Globulin Ratio 1.4 (1.0-1.7) Urine Collection Type U cath Urine Color (Auto) Yellow Urine Turbidity Clear Urine pH (Auto) 5.0 (<5.0-8.0) Urine Specific [place] 1.014 (1.000-1.030) Urine Protein (Auto) Negative mg/dL (Negative) Urine Glucose (Auto)(UA) Negative mg/dL (Negative) Urine Ketones (Auto) Negative mg/dL (Negative) Urine Blood (Auto) Negative (Negative) Urine Nitrite Negative (Negative) Urine Bilirubin (Auto) Negative (Negative) Urine Urobilinogen (Auto) Normal mg/dL (Normal) Urine Leukocyte Esterase (Auto) Negative (Negative) Urine RBC Occ /HPF (0-2) Urine WBC Occ /HPF (0-4) Urine Squamous Epithelial Cells Mod /LPF Urine Bacteria 0 /HPF (0-FEW) Urine Hyaline Casts Few /HPF Urine Mucus Slight /LPF Vital Signs: Vital Signs Date Time Temp Pulse Resp B/P (MAP) Pulse Ox O2 Delivery O2 Flow Rate FiO2 11/25/21 22:11 66 16 87/53 (64) 99 Nasal Cannula 2.0 11/25/21 21:33 66 18 73/45 (54) 99 Nasal Cannula 2.0 11/25/21 21:03 66 18 101/54 (70) 91 Nasal Cannula 2.0 11/25/21 20:30 66 18 89/55 (66) 95 Nasal Cannula 2.0 11/25/21 20:15 18 89 11/25/21 20:00 66 18 90/51 (64) 89 Room Air 11/25/21 19:30 64 18 95/50 (65) 98 Room Air 11/25/21 19:00 64 18 92/54 (67) 92 Room Air 11/25/21 17:54 98.2 66 18 104/57 (73) 98 Room Air 98.2 EKG: EKG: EKG Interpreted by Dr. Cifuentes at 1827: Regular rate and rhythm 65 bpm with no ectopic beats. NJ 192 ms/QT 460 ms/QTc 484 ms. No STEMI. Radiology/Procedures: Radiology/Procedures: PROCEDURE: CHEST AP ONLY INDICATION: Reason: abn labs / Spl. Instructions: / History: COMPARISON: October 11, 2021 FINDINGS: Single view of chest obtained. Calcific atherosclerosis with cardiomediastinal silhouette similar to prior. Mild interstitial opacities at the lung bases. Calcified nodule could be sequela of chronic granulomatous disease. IMPRESSION: * Mild interstitial opacities at lung bases could be atelectasis or infiltrate. Electronically signed by: Bart العراقي MD (11/25/2021 7:32 PM) [id number] Course & Med Decision Making: Course & Med Decision Making Pertinent Labs and Imaging studies reviewed. (See chart for details) Patient is a 76-year-old female presenting via EMS from [facility] with complaints of malaise and abnormal labs. Labs concerning for acutely elevated creatinine at 6.4 and BUN at 132 as well as mild pancytophilia and electrolyte abnormalities. Patient has significant comorbidities. Discussed interventions and treatments with hospitalist, Dr. Curran, who gladly accepts patient for admission. Patient will undergo gentle rehydration and have renal ultrasound performed for acute renal failure and absence of chronic insufficiency. Additionally, I spoke with Dr. Harrington, nephrology, who is in agreement with current interventions and treatments. Prior to transport to the floor, nursing staff made me aware that the patient's blood pressure had decreased to 87/53. Patient was provided with 500 mL fluid bolus with improvement. Blood pressure improved slightly prior to transport. Patient hemodynamically stable at time of transport. Dragon Disclaimer: Dragon Disclaimer: This electronic medical record was generated, in whole or in part, using a voice recognition dictation system. Departure Departure Impression: Primary Impression: Malaise and fatigue Additional Impressions: Acute kidney failure Qualified Codes: N17.9 - Acute kidney failure, unspecified Elevated red blood cell count Elevated white blood cell count Qualified Codes: D72.828 - Other elevated white blood cell count Electrolyte abnormality Disposition: 09 ADMITTED INPATIENT Admitting Physician: EVERTON (Magdy) Condition: GUARDED Referrals: HILDA NOLAND CNM (PCP) ADELA RODRIGUEZ Nov 25, 2021 19:44
[2021-11-25 19:50] LABS: BASO # 0.1 x10^3/uL (0.0-0.2); BASO % 1 % (0-3); EOS # 0.6 x10^3/uL (0.0-0.7); EOS % 3 % (0-3); HEMOGLOBIN 12.7 g/dL (12.0-15.5); LYMPH # 0.9 x10^3/uL (1.0-4.8); LYMPH % 5 % (24-48); MEAN CORPUSCULAR HEMOGLOBIN 22 pg (25-35); MEAN CORPUSCULAR HGB CONC 32 g/dL (31-37); MEAN CORPUSCULAR VOLUME 68 fL (79-100); MONO # 0.3 x10^3/uL (0.0-1.1); MONO % 1 % (0-9); NEUT # 17.4 x10^3/uL (1.8-7.7); NEUT % 90 % (31-73); PLATELET COUNT 463 x10^3/uL (140-400); RED BLOOD COUNT 5.85 x10^6/uL (3.50-5.40); RED CELL DISTRIBUTION WIDTH 20.5 % (11.5-14.5); WHITE BLOOD COUNT 19.3 x10^3/uL (4.0-11.0)
[2021-11-25 20:16] LABS: CALCIUM 8.9 mg/dL (8.5-10.1); CREATININE 6.4 mg/dL (0.6-1.0); GFR 6.3; POTASSIUM 5.5 mmol/L (3.5-5.1)
[2021-11-25 20:30] LABS: ALBUMIN 4.2 g/dL (3.4-5.0); ALBUMIN/GLOBULIN RATIO 1.4 (1.0-1.7); MAGNESIUM 3.4 mg/dL (1.8-2.4); PHOSPHORUS 7.8 mg/dL (2.6-4.7); TOTAL BILIRUBIN 0.7 mg/dL (0.2-1.0); TOTAL PROTEIN 7.1 g/dL (6.4-8.2)
[2021-11-25] MEDS ORDERED: IV NORMAL SALINE 1000ML BAG 1,000 ML IV ONE (21:15)
[2021-11-25 21:20] LABS: % BANDS 7 % (0-9); % EOS 3 % (0-5); % LYMPHS 4 % (24-48); % MONOS 1 % (0-10); % SEGS 85 % (35-66); ANISOCYTOSIS MOD; HYPOCHROMIA MOD; OVALOCYTES FEW; PLT ESTIMATE INCREASED (ADEQUATE); POIKILOCYTOSIS SLIGHT
[2021-11-25 21:22] LABS: MICROCYTOSIS MARKED; SCHISTOCYTES OCC
[2021-11-25 21:50] LABS: BACTERIA,URINE 0 /HPF (0-FEW); HYALINE CASTS, URINE FEW /HPF; RBC,URINE OCC /HPF (0-2); WBC,URINE OCC /HPF (0-4)
[2021-11-25] MEDS ORDERED: IV NORMAL SALINE 500ML BAG 500 ML IV ONE (22:15)
[2021-11-25 23:20] VITALS: BP 106/52
[2021-11-26 03:00] VITALS: BP 101/49
[2021-11-26] MEDS ORDERED: GUAI600T93 PO (06:45)
[2021-11-26] MEDS ORDERED: LEVO100T5 PO (06:45)
[2021-11-26 07:00] VITALS: BP 93/49
--- NOTE | 2021-11-26 10:28 | PDOC1 ---
History and Physical Date of Admission Date of Admission DATE: 11/26/21 TIME: 10:25 Identification/Chief Complaint Chief Complaint Lab abnormalities Source Source: Chart review, Patient History of Present Illness History of Present Illness Patient is a 76-year-old female past medical history CAD, CHF, anemia, hypertension, hypothyroidism, who was sent here from [facility] re[facility] due to abnormal renal function. Per EMS report, her creatinine was elevated at 5.9 and BUN was elevated at 114. When she was last seen at this hospital on 10/11/2021, her creatinine was 1.2, and her EGFR was 43.2. At the time of my ev aluation she is pleasantly demented and has no complaints. She will be admitted for further medical management. Past Medical History Cardiovascular: CAD, HTN, [place], Hyperlipidemia Pulmonary: Other CENTRAL NERVOUS SYSTEM: Other GI: No pertinent hx Heme/Onc: No pertinent hx Hepatobiliary: No pertinent hx Psych: Anxiety Rheumatologic: No pertinent hx Infectious disease: No pertinent hx Renal/: Chronic renal insuff, UTI Endocrine: Hypothyroidism Past Surgical History Past Surgical History: Appendectomy, Cataract Removal Family History Family History: Family History Unknown Social History Smoke: No ALCOHOL: none Drugs: None Current Problem List Problem List Problems Medical Problems: (1) Acute kidney failure Status: Acute (2) Electrolyte abnormality Status: Acute (3) Elevated red blood cell count Status: Acute (4) Elevated white blood cell count Status: Acute (5) Malaise and fatigue Status: Acute Current Medications Current Medications Current Medications Sodium Chloride 1,000 ml @ 75 mls/hr 1X ONCE IV Last administered on 11/25/21at 21:10; Start 11/25/21 at 21:15; Stop 11/26/21 at 10:34 Sodium Chloride 500 ml @ 500 mls/hr 1X ONCE IV ; Start 11/25/21 at 22:15; Sto p 11/25/21 at 23:14; Status DC Active Scripts Active Reported Mucus ER (Guaifenesin) 600 Mg Tab.er.12h 600 Mg PO Q12HR Levothyroxine Sodium 100 Mcg Tablet 100 Mcg PO DAILYAC Allergies Allergies: Coded Allergies: amlodipine (Verified Allergy, Severe, lip swelling, 10/11/21) hydralazine (Verified Allergy, Intermediate, Rash, 10/11/21) sulfamethoxazole (Verified Allergy, Intermediate, 10/11/21) trimethoprim (Verified Allergy, Intermediate, 10/11/21) morphine (Verified Adverse Reaction, Intermediate, 10/12/21) "makes me act loopy" ROS Review of System GENERAL: No history of weight change, weakness or fevers. SKIN: No bruising, hair changes or rashes. EYES: No blurred, double or loss of vision. NOSE AND THROAT: No history of nosebleeds, hoarseness or sore throat. HEART: Denies chest pain, denies palpitations. LUNGS: Denies cough, hemoptysis, wheezing or shortness of breath. GASTROINTESTINAL: Denies nausea, vomiting, abdominal pain. GENITOURINARY: Denies dysuria, frequency, urgency, hematuria. NEUROLOGIC: Denies history of numbness, tingling, tremor or weakness. PSYCHIATRIC: Denies anxiety, denies depression. ENDOCRINE: No history of heat or cold intolerance, polyuria or polydipsia. EXTREMITIES: Denies muscle weakness, joint pain, pain on walking or stiffness. Physical Exam Physical Exam General: Alert, Oriented X1, Cooperative, No acute distress HEENT: PERRLA, EOMI Lungs: Clear to auscultation, Normal air movement Heart: RRR, no murmurs Cardiovascular: S1, S2 Abdomen: Normal bowel sounds, Soft, No tenderness Extremities: No clubbing, No cyanosis Skin: No rashes, No significant lesion Neuro: Normal speech, Normal tone, Sensation intact Psych/Mental Status: Pleasantly confused Vitals Vitals Vital Signs Date Time Temp Pulse Resp B/P (MAP) Pulse Ox O2 Delivery O2 Flow Rate FiO2 11/26/21 08:00 Nasal Cannula 2.0 11/26/21 07:00 98.0 59 17 93/49 (64) 95 98.0 Labs Labs Laboratory Tests Test 11/25/21 19:35 11/25/21 21:35 White Blood Count 19.3 x10^3/uL (4.0-11.0) Red Blood Count 5.85 x10^6/uL (3.50-5.40) Hemoglobin 12.7 g/dL (12.0-15.5) Hematocrit 40.0 % (36.0-47.0) Mean Corpuscular Volume 68 fL (79-100) Mean Corpuscular Hemoglobin 22 pg (25-35) Mean Corpuscular Hemoglobin Concent 32 g/dL (31-37) Red Cell Distribution Width 20.5 % (11.5-14.5) Platelet Count 463 x10^3/uL (140-400) Neutrophils (%) (Auto) 90 % (31-73) Lymphocytes (%) (Auto) 5 % (24-48) Monocytes (%) (Auto) 1 % (0-9) Eosinophils (%) (Auto) 3 % (0-3) Basophils (%) (Auto) 1 % (0-3) Neutrophils # (Auto) 17.4 x10^3/uL (1.8-7.7) Lymphocytes # (Auto) 0.9 x10^3/uL (1.0-4.8) Monocytes # (Auto) 0.3 x10^3/uL (0.0-1.1) Eosinophils # (Auto) 0.6 x10^3/uL (0.0-0.7) Basophils # (Auto) 0.1 x10^3/uL (0.0-0.2) Segmented Neutrophils % 85 % (35-66) Band Neutrophils % 7 % (0-9) Lymphocytes % 4 % (24-48) Monocytes % 1 % (0-10) Eosinophils % 3 % (0-5) Platelet Estimate Increased (ADEQUATE) Hypochromasia Mod Poikilocytosis Slight Anisocytosis Mod Microcytosis Marked Ovalocytes Few Schistocytes Occ Sodium Level 132 mmol/L (136-145) Potassium Level 5.5 mmol/L (3.5-5.1) Chloride Level 96 mmol/L (98-107) Carbon Dioxide Level 17 mmol/L (21-32) Anion Gap 19 (6-14) Blood Urea Nitrogen 132 mg/dL (7-20) Creatinine 6.4 mg/dL (0.6-1.0) Estimated GFR (Cockcroft-Gault) 6.3 BUN/Creatinine Ratio 21 (6-20) Glucose Level 79 mg/dL (70-99) Lactic Acid Level 0.9 mmol/L (0.4-2.0) Calcium Level 8.9 mg/dL (8.5-10.1) Phosphorus Level 7.8 mg/dL (2.6-4.7) Magnesium Level 3.4 mg/dL (1.8-2.4) Total Bilirubin 0.7 mg/dL (0.2-1.0) Aspartate Amino Transf (AST/SGOT) 19 U/L (15-37) Alanine Aminotransferase (ALT/SGPT) 14 U/L (14-59) Alkaline Phosphatase 95 U/L (46-116) Total Protein 7.1 g/dL (6.4-8.2) Albumin 4.2 g/dL (3.4-5.0) Albumin/Globulin Ratio 1.4 (1.0-1.7) Urine Collection Type U cath Urine Color (Auto) Yellow Urine Turbidity Clear Urine pH (Auto) 5.0 (<5.0-8.0) Urine Specific [place] 1.014 (1.000-1.030) Urine Protein (Auto) Negative mg/dL (Negative) Urine Glucose (Auto)(UA) Negative mg/dL (Negative) Urine Ketones (Auto) Negative mg/dL (Negative) Urine Blood (Auto) Negative (Negative) Urine Nitrite Negative (Negative) Urine Bilirubin (Auto) Negative (Negative) Urine Urobilinogen (Auto) Normal mg/dL (Normal) Urine Leukocyte Esterase (Auto) Negative (Negative) Urine RBC Occ /HPF (0-2) Urine WBC Occ /HPF (0-4) Urine Squamous Epithelial Cells Mod /LPF Urine Bacteria 0 /HPF (0-FEW) Urine Hyaline Casts Few /HPF Urine Mucus Slight /LPF Laboratory Tests Test 11/25/21 19:35 11/25/21 21:35 White Blood Count 19.3 x10^3/uL (4.0-11.0) Red Blood Count 5.85 x10^6/uL (3.50-5.40) Hemoglobin 12.7 g/dL (12.0-15.5) Hematocrit 40.0 % (36.0-47.0) Mean Corpuscular Volume 68 fL (79-100) Mean Corpuscular Hemoglobin 22 pg (25-35) Mean Corpuscular Hemoglobin Concent 32 g/dL (31-37) Red Cell Distribution Width 20.5 % (11.5-14.5) Platelet Count 463 x10^3/uL (140-400) Neutrophils (%) (Auto) 90 % (31-73) Lymphocytes (%) (Auto) 5 % (24-48) Monocytes (%) (Auto) 1 % (0-9) Eosinophils (%) (Auto) 3 % (0-3) Basophils (%) (Auto) 1 % (0-3) Neutrophils # (Auto) 17.4 x10^3/uL (1.8-7.7) Lymphocytes # (Auto) 0.9 x10^3/uL (1.0-4.8) Monocytes # (Auto) 0.3 x10^3/uL (0.0-1.1) Eosinophils # (Auto) 0.6 x10^3/uL (0.0-0.7) Basophils # (Auto) 0.1 x10^3/uL (0.0-0.2) Segmented Neutrophils % 85 % (35-66) Band Neutrophils % 7 % (0-9) Lymphocytes % 4 % (24-48) Monocytes % 1 % (0-10) Eosinophils % 3 % (0-5) Platelet Estimate Increased (ADEQUATE) Hypochromasia Mod Poikilocytosis Slight Anisocytosis Mod Microcytosis Marked Ovalocytes Few Schistocytes Occ Sodium Level 132 mmol/L (136-145) Potassium Level 5.5 mmol/L (3.5-5.1) Chloride Level 96 mmol/L (98-107) Carbon Dioxide Level 17 mmol/L (21-32) Anion Gap 19 (6-14) Blood Urea Nitrogen 132 mg/dL (7-20) Creatinine 6.4 mg/dL (0.6-1.0) Estimated GFR (Cockcroft-Gault) 6.3 BUN/Creatinine Ratio 21 (6-20) Glucose Level 79 mg/dL (70-99) Lactic Acid Level 0.9 mmol/L (0.4-2.0) Calcium Level 8.9 mg/dL (8.5-10.1) Phosphorus Level 7.8 mg/dL (2.6-4.7) Magnesium Level 3.4 mg/dL (1.8-2.4) Total Bilirubin 0.7 mg/dL (0.2-1.0) Aspartate Amino Transf (AST/SGOT) 19 U/L (15-37) Alanine Aminotransferase (ALT/SGPT) 14 U/L (14-59) Alkaline Phosphatase 95 U/L (46-116) Total Protein 7.1 g/dL (6.4-8.2) Albumin 4.2 g/dL (3.4-5.0) Albumin/Globulin Ratio 1.4 (1.0-1.7) Urine Collection Type U cath Urine Color (Auto) Yellow Urine Turbidity Clear Urine pH (Auto) 5.0 (<5.0-8.0) Urine Specific [place] 1.014 (1.000-1.030) Urine Protein (Auto) Negative mg/dL (Negative) Urine Glucose (Auto)(UA) Negative mg/dL (Negative) Urine Ketones (Auto) Negative mg/dL (Negative) Urine Blood (Auto) Negative (Negative) Urine Nitrite Negative (Negative) Urine Bilirubin (Auto) Negative (Negative) Urine Urobilinogen (Auto) Normal mg/dL (Normal) Urine Leukocyte Esterase (Auto) Negative (Negative) Urine RBC Occ /HPF (0-2) Urine WBC Occ /HPF (0-4) Urine Squamous Epithelial Cells Mod /LPF Urine Bacteria 0 /HPF (0-FEW) Urine Hyaline Casts Few /HPF Urine Mucus Slight /LPF Images Images PATIENT: MONICO LONG ACCOUNT: [id number] : 1945 LOCATION: ER AGE: 76 SEX: F EXAM STATUS: REG ER ORD. PHYSICIAN: ADELA RODRIGUEZ REASON: abn labs PROCEDURE: CHEST AP ONLY INDICATION: Reason: abn labs / Spl. Instructions: / History: COMPARISON: October 11, 2021 FINDINGS: Single view of chest obtained. Calcific atherosclerosis with cardiomediastinal silhouette similar to prior. Mild interstitial opacities at the lung bases. Calcified nodule could be sequela of chronic granulomatous disease. IMPRESSION: * Mild interstitial opacities at lung bases could be atelectasis or infiltrate. VTE Prophylaxis Ordered VTE Prophylaxis Devices: No VTE Pharmacological Prophylaxi: Yes Assessment/Plan Assessment/Plan Acute renal failure CAD Hypothyroidism Plan: Consultation placed to nephrology We will hydrate patient Bilateral renal ultrasounds pending Echocardiogram on 10/12/2021 showed normal left-ventricular systolic function with ejection fraction 55-60%; moderate to moderately severe concentric left ventricular hypertrophy. Resume home medications FEN - Cardiac diet PPX - Heparin FULL CODE/no surrogate decision-maker, and at this time Dispo - inpatient for above Justifications for Admission Other Justification Right hip fracture DOUG TOVAR MD Nov 26, 2021 10:28
[2021-11-26] MEDS ORDERED: MAG HYDROX/ALUMINUM HYD/SIMETH 30 ML ORAL.SUSP PO PRN (10:45)
[2021-11-26 11:00] VITALS: BP 119/64
--- NOTE | 2021-11-26 11:00 | PDOC2 ---
CONSULT Date of Consult Date of Consult DATE: 11/26/21 TIME: 10:55 Reason for Consult Reason for Consult: SHASHANK Referring Physician Referring Physician: NICOLASA Identification/Chief Complaint Chief Complaint CONFUSION Source Source: Chart review History of Present Illness Reason for Visit: THIS IS A 76 YR OLD WITH ABNORMAL LABS OP. STATES SHE HAS NOT BEEN EATING WELL. ON ADMIT SHE IS NOTED TO HAVE SHASHANK. CR OF 6.4. SHE ALSO HAS LEUCOCYTOSIS. SHE DOES NOT HAVE ANY CKD BUT HAS HAD EPISODES OF SHASHANK. MOST RECENTLY IN OCTOBER THIS YEAR DUE TO DEHYDRATION. HAD FULL RECOVERY WITH HYDRATION ALONE. SHE IS PLEASANTLY CONFUSED AND HAS DEMENTIA. NO NEPHROTOXINS NOTED AND SHE IS HEMODYNAMICALLY STABLE. Past Medical History Cardiovascular: CAD, HTN, [place], Hyperlipidemia Pulmonary: Other CENTRAL NERVOUS SYSTEM: Other GI: No pertinent hx Heme/Onc: No pertinent hx Hepatobiliary: No pertinent hx Psych: Anxiety Rheumatologic: No pertinent hx Infectious disease: No pertinent hx Renal/: Acute renal failure, UTI Endocrine: Hypothyroidism Past Surgical History Past Surgical History: Appendectomy, Cataract Removal Family History Family History: Family History Unknown Social History No ALCOHOL: none Drugs: None Lives: Intermediate Domestic Violence: Neg Current Problem List Problem List Problems Medical Problems: (1) Acute kidney failure Status: Acute (2) Electrolyte abnormality Status: Acute (3) Elevated red blood cell count Status: Acute (4) Elevated white blood cell count Status: Acute (5) Malaise and fatigue Status: Acute Current Medications Current Medications Current Medications Sodium Chloride 1,000 ml @ 75 mls/hr 1X ONCE IV Last administered on 11/25/21at 21:10; Start 11/25/21 at 21:15; Stop 11/26/21 at 10:34; Status DC Sodium Chloride 500 ml @ 500 mls/hr 1X ONCE IV ; Start 11/25/21 at 22:15; Stop 11/25/21 at 23:14; Status DC Ondansetron HCl (Zofran) 4 mg PRN Q6HRS PRN IVP NAUSEA/VOMITING; Start 11/26/21 at 10:45 Al Hydroxide/Mg Hydroxide (Mylanta Plus Xs) 30 ml PRN Q3HRS PRN PO HEARTBURN / GAS; Start 11/26/21 at 10:45 Heparin Sodium (Porcine) (Heparin Sodium) 5,000 unit Q12HR SQ ; Start 11/26/21 at 11:00 Guaifenesin (Mucinex) 600 mg Q12HR PO ; Start 11/26/21 at 11:00 Levothyroxine Sodium (Synthroid) 100 mcg DAILYAC PO ; Start 11/26/21 at 11:00 Active Scripts Active Reported Mucus ER (Guaifenesin) 600 Mg Tab.er.12h 600 Mg PO Q12HR Levothyroxine Sodium 100 Mcg Tablet 100 Mcg PO DAILYAC Allergies Allergies: Coded Allergies: amlodipine (Verified Allergy, Severe, lip swelling, 10/11/21) hydralazine (Verified Allergy, Intermediate, Rash, 10/11/21) sulfamethoxazole (Verified Allergy, Intermediate, 10/11/21) trimethoprim (Verified Allergy, Intermediate, 10/11/21) morphine (Verified Adverse Reaction, Intermediate, 10/12/21) "makes me act loopy" ROS Review of System CONFUSED Physical Exam General: Alert, Cooperative, No acute distress HEENT: Atraumatic, PERRLA, Other (DRY MUCOSA) Lungs: Clear to auscultation Heart: Regular rate Abdomen: Normal bowel sounds Extremities: No clubbing Skin: No breakdown Neuro: Other (NO ASYMMETRY) Psych/Mental Status: Other (PLEASANTLY CONFUSED) MUSCULOSKELETAL: No joint tenderness, Other (DIFFUSE MUSCLE ATROPHY) Vitals VITALS Vital Signs Date Time Temp Pulse Resp B/P (MAP) Pulse Ox O2 Delivery O2 Flow Rate FiO2 11/26/21 08:00 Nasal Cannula 2.0 11/26/21 07:00 98.0 59 17 93/49 (64) 95 98.0 Labs Labs Laboratory Tests Test 11/25/21 19:35 11/25/21 21:35 White Blood Count 19.3 x10^3/uL (4.0-11.0) Red Blood Count 5.85 x10^6/uL (3.50-5.40) Hemoglobin 12.7 g/dL (12.0-15.5) Hematocrit 40.0 % (36.0-47.0) Mean Corpuscular Volume 68 fL (79-100) Mean Corpuscular Hemoglobin 22 pg (25-35) Mean Corpuscular Hemoglobin Concent 32 g/dL (31-37) Red Cell Distribution Width 20.5 % (11.5-14.5) Platelet Count 463 x10^3/uL (140-400) Neutrophils (%) (Auto) 90 % (31-73) Lymphocytes (%) (Auto) 5 % (24-48) Monocytes (%) (Auto) 1 % (0-9) Eosinophils (%) (Auto) 3 % (0-3) Basophils (%) (Auto) 1 % (0-3) Neutrophils # (Auto) 17.4 x10^3/uL (1.8-7.7) Lymphocytes # (Auto) 0.9 x10^3/uL (1.0-4.8) Monocytes # (Auto) 0.3 x10^3/uL (0.0-1.1) Eosinophils # (Auto) 0.6 x10^3/uL (0.0-0.7) Basophils # (Auto) 0.1 x10^3/uL (0.0-0.2) Segmented Neutrophils % 85 % (35-66) Band Neutrophils % 7 % (0-9) Lymphocytes % 4 % (24-48) Monocytes % 1 % (0-10) Eosinophils % 3 % (0-5) Platelet Estimate Increased (ADEQUATE) Hypochromasia Mod Poikilocytosis Slight Anisocytosis Mod Microcytosis Marked Ovalocytes Few Schistocytes Occ Sodium Level 132 mmol/L (136-145) Potassium Level 5.5 mmol/L (3.5-5.1) Chloride Level 96 mmol/L (98-107) Carbon Dioxide Level 17 mmol/L (21-32) Anion Gap 19 (6-14) Blood Urea Nitrogen 132 mg/dL (7-20) Creatinine 6.4 mg/dL (0.6-1.0) Estimated GFR (Cockcroft-Gault) 6.3 BUN/Creatinine Ratio 21 (6-20) Glucose Level 79 mg/dL (70-99) Lactic Acid Level 0.9 mmol/L (0.4-2.0) Calcium Level 8.9 mg/dL (8.5-10.1) Phosphorus Level 7.8 mg/dL (2.6-4.7) Magnesium Level 3.4 mg/dL (1.8-2.4) Total Bilirubin 0.7 mg/dL (0.2-1.0) Aspartate Amino Transf (AST/SGOT) 19 U/L (15-37) Alanine Aminotransferase (ALT/SGPT) 14 U/L (14-59) Alkaline Phosphatase 95 U/L (46-116) Total Protein 7.1 g/dL (6.4-8.2) Albumin 4.2 g/dL (3.4-5.0) Albumin/Globulin Ratio 1.4 (1.0-1.7) Urine Collection Type U cath Urine Color (Auto) Yellow Urine Turbidity Clear Urine pH (Auto) 5.0 (<5.0-8.0) Urine Specific [place] 1.014 (1.000-1.030) Urine Protein (Auto) Negative mg/dL (Negative) Urine Glucose (Auto)(UA) Negative mg/dL (Negative) Urine Ketones (Auto) Negative mg/dL (Negative) Urine Blood (Auto) Negative (Negative) Urine Nitrite Negative (Negative) Urine Bilirubin (Auto) Negative (Negative) Urine Urobilinogen (Auto) Normal mg/dL (Normal) Urine Leukocyte Esterase (Auto) Negative (Negative) Urine RBC Occ /HPF (0-2) Urine WBC Occ /HPF (0-4) Urine Squamous Epithelial Cells Mod /LPF Urine Bacteria 0 /HPF (0-FEW) Urine Hyaline Casts Few /HPF Urine Mucus Slight /LPF Laboratory Tests Test 11/25/21 19:35 11/25/21 21:35 White Blood Count 19.3 x10^3/uL (4.0-11.0) Red Blood Count 5.85 x10^6/uL (3.50-5.40) Hemoglobin 12.7 g/dL (12.0-15.5) Hematocrit 40.0 % (36.0-47.0) Mean Corpuscular Volume 68 fL (79-100) Mean Corpuscular Hemoglobin 22 pg (25-35) Mean Corpuscular Hemoglobin Concent 32 g/dL (31-37) Red Cell Distribution Width 20.5 % (11.5-14.5) Platelet Count 463 x10^3/uL (140-400) Neutrophils (%) (Auto) 90 % (31-73) Lymphocytes (%) (Auto) 5 % (24-48) Monocytes (%) (Auto) 1 % (0-9) Eosinophils (%) (Auto) 3 % (0-3) Basophils (%) (Auto) 1 % (0-3) Neutrophils # (Auto) 17.4 x10^3/uL (1.8-7.7) Lymphocytes # (Auto) 0.9 x10^3/uL (1.0-4.8) Monocytes # (Auto) 0.3 x10^3/uL (0.0-1.1) Eosinophils # (Auto) 0.6 x10^3/uL (0.0-0.7) Basophils # (Auto) 0.1 x10^3/uL (0.0-0.2) Segmented Neutrophils % 85 % (35-66) Band Neutrophils % 7 % (0-9) Lymphocytes % 4 % (24-48) Monocytes % 1 % (0-10) Eosinophils % 3 % (0-5) Platelet Estimate Increased (ADEQUATE) Hypochromasia Mod Poikilocytosis Slight Anisocytosis Mod Microcytosis Marked Ovalocytes Few Schistocytes Occ Sodium Level 132 mmol/L (136-145) Potassium Level 5.5 mmol/L (3.5-5.1) Chloride Level 96 mmol/L (98-107) Carbon Dioxide Level 17 mmol/L (21-32) Anion Gap 19 (6-14) Blood Urea Nitrogen 132 mg/dL (7-20) Creatinine 6.4 mg/dL (0.6-1.0) Estimated GFR (Cockcroft-Gault) 6.3 BUN/Creatinine Ratio 21 (6-20) Glucose Level 79 mg/dL (70-99) Lactic Acid Level 0.9 mmol/L (0.4-2.0) Calcium Level 8.9 mg/dL (8.5-10.1) Phosphorus Level 7.8 mg/dL (2.6-4.7) Magnesium Level 3.4 mg/dL (1.8-2.4) Total Bilirubin 0.7 mg/dL (0.2-1.0) Aspartate Amino Transf (AST/SGOT) 19 U/L (15-37) Alanine Aminotransferase (ALT/SGPT) 14 U/L (14-59) Alkaline Phosphatase 95 U/L (46-116) Total Protein 7.1 g/dL (6.4-8.2) Albumin 4.2 g/dL (3.4-5.0) Albumin/Globulin Ratio 1.4 (1.0-1.7) Urine Collection Type U cath Urine Color (Auto) Yellow Urine Turbidity Clear Urine pH (Auto) 5.0 (<5.0-8.0) Urine Specific [place] 1.014 (1.000-1.030) Urine Protein (Auto) Negative mg/dL (Negative) Urine Glucose (Auto)(UA) Negative mg/dL (Negative) Urine Ketones (Auto) Negative mg/dL (Negative) Urine Blood (Auto) Negative (Negative) Urine Nitrite Negative (Negative) Urine Bilirubin (Auto) Negative (Negative) Urine Urobilinogen (Auto) Normal mg/dL (Normal) Urine Leukocyte Esterase (Auto) Negative (Negative) Urine RBC Occ /HPF (0-2) Urine WBC Occ /HPF (0-4) Urine Squamous Epithelial Cells Mod /LPF Urine Bacteria 0 /HPF (0-FEW) Urine Hyaline Casts Few /HPF Urine Mucus Slight /LPF Images Images PATIENT: MONICO LONG ACCOUNT: [id number] : 1945 LOCATION: ER AGE: 76 SEX: F EXAM STATUS: REG ER ORD. PHYSICIAN: ADELA RODRIGUEZ REASON: abn labs PROCEDURE: CHEST AP ONLY INDICATION: Reason: abn labs / Spl. Instructions: / History: COMPARISON: October 11, 2021 FINDINGS: Single view of chest obtained. Calcific atherosclerosis with cardiomediastinal silhouette similar to prior. Mild interstitial opacities at the lung bases. Calcified nodule could be sequela of chronic granulomatous disease. IMPRESSION: * Mild interstitial opacities at lung bases could be atelectasis or infiltrate. Electronically signed by: Bart العراقي MD (11/25/2021 7:32 PM) [id number] Assessment/Plan Assessment/Plan IMP SHASHANK-CR OF 6.4 DEHYDRATION MALIGNANT ACCELERATED HTN-RESOLVED CAD HX AFIB RVR-HX LEUCOCYTOSIS PLAN HYDRATION RENAL SONOGRAM CHECK UA EMPIRIC ANTIBIOTICS BLADDER SCAN LABS IN AM WILL FOLLOW FREDI MAXWELL MD Nov 26, 2021 11:00
[2021-11-26 11:25] LABS: ALBUMIN 3.6 g/dL (3.4-5.0); ALBUMIN/GLOBULIN RATIO 1.2 (1.0-1.7); CREATININE 5.3 mg/dL (0.6-1.0); GFR 7.9; POTASSIUM 4.8 mmol/L (3.5-5.1); TOTAL BILIRUBIN 0.6 mg/dL (0.2-1.0); TOTAL PROTEIN 6.6 g/dL (6.4-8.2)
[2021-11-26] MEDS: LEVOTHYROXINE 100 MCG TABLET PO SCH (11:35)
[2021-11-26] MEDS: HEPARIN for SUB-Q USE 5,000 UNIT/ML VIAL. SQ SCH ×2 (11:37→21:45)
[2021-11-26] MEDS: IV NORMAL SALINE 1000ML BAG 1,000 ML IV SCH (11:45)
--- NOTE | 2021-11-26 12:40 | RAD ---
Procedure: US RENAL BILAT ([id number]) Clinical information: Abnormal renal function tests (794.4). Technique: Multiple longitudinal and transverse 2D real time ultrasound images through the kidneys we re acquired. Findings: The kidneys are normal in size, contour, cortical thickness, and echogenicity. The right kidney measures 9.25 x 3.8 x 4.2 . There is no evidence of hydronephrosis. There is no evid ence of a renal mass. The LEFT kidney measures 10.2 x 3.5 x 4.0. There is no evidence of renal calculi. There is no evidenc e of hydronephrosis. The inferior pole of the left kidney is not clearly seen. There is no evidence o f a renal mass. The urinary bladder is unremarkable. There is no evidence of bladder stones. There is no evidence of a bladder mass. . Impression: 1. Unremarkable renal ultrasound. Electronically signed by: Isabel Snow MD (11/26/2021 12:38 PM) [facility]
[2021-11-26 13:18] LABS: HYALINE CASTS, URINE FEW /HPF
[2021-11-26 13:19] LABS: BACTERIA,URINE 0 /HPF (0-FEW); RBC,URINE 0 /HPF (0-2)
[2021-11-26 15:00] VITALS: BP 123/62
[2021-11-26 19:50] VITALS: BP 153/60
[2021-11-26 23:00] VITALS: BP 175/72
[2021-11-27] MEDS: IV NORMAL SALINE 1000ML BAG 1,000 ML IV SCH ×3 (00:20→22:13)
[2021-11-27] MEDS: ONDANSETRON PF 4 MG/2 ML VIAL. IVP PRN ×3 (00:33→22:14)
[2021-11-27] MEDS: LEVOTHYROXINE 100 MCG TABLET PO SCH (06:17)
[2021-11-27 07:00] VITALS: BP 122/52
[2021-11-27] MEDS: HEPARIN for SUB-Q USE 5,000 UNIT/ML VIAL. SQ SCH ×2 (09:01→22:22)
[2021-11-27 09:25] LABS: CALCIUM 8.5 mg/dL (8.5-10.1); CREATININE 2.9 mg/dL (0.6-1.0); GFR 15.8; POTASSIUM 4.4 mmol/L (3.5-5.1)
--- NOTE | 2021-11-27 10:09 | EKG ---
[facility] [address] [place] [address] Test Date: 2021-11-25 Test Time: 18:17:28 Pat Name: MONICO LONG Department: Room: 202 1 Gender: F [employer] Technician: [id number] : 1945 Requested By: ADELA RODRIGUEZ Order Number: [id number] Reading MD: Jose Mcmillan Measurements Intervals [place] Rate: 65 P: 90 NE: 192 QRS: -2 QRSD: 102 T: 148 QT: 460 QTc: 484 Interpretive Statements SINUS RHYTHM LEFTWARD AXIS LEFT VENTRICULAR HYPERTROPHY WITH REPOLARIZATION ABNORMALITIES Electronically Signed On 11-29-2021 18:37:05 CDT by Jose Mcmillan
[2021-11-27 10:43] LABS: BASO # 0.1 x10^3/uL (0.0-0.2); BASO % 1 % (0-3); EOS # 0.6 x10^3/uL (0.0-0.7); EOS % 3 % (0-3); HEMATOCRIT 38.5 % (36.0-47.0); HEMOGLOBIN 11.9 g/dL (12.0-15.5); LYMPH % 6 % (24-48); MEAN CORPUSCULAR HEMOGLOBIN 22 pg (25-35); MEAN CORPUSCULAR HGB CONC 31 g/dL (31-37); MEAN CORPUSCULAR VOLUME 70 fL (79-100); MONO # 0.2 x10^3/uL (0.0-1.1); MONO % 1 % (0-9); NEUT % 89 % (31-73); PLATELET COUNT 428 x10^3/uL (140-400); RED BLOOD COUNT 5.54 x10^6/uL (3.50-5.40); RED CELL DISTRIBUTION WIDTH 22.2 % (11.5-14.5); WHITE BLOOD COUNT 16.9 x10^3/uL (4.0-11.0)
[2021-11-27 10:47] VITALS: BP 124/51
--- NOTE | 2021-11-27 13:36 | PDOC ---
DATE OF SERVICE DATE: 11/27/21 TIME: 13:27 SUBJECTIVE ROS c/o mild nausea, No vomiting . Denies SOB OBJECTIVE Vital Signs Vital Signs Date Time Temp Pulse Resp B/P (MAP) Pulse Ox O2 Delivery O2 Flow Rate FiO2 11/27/21 10:47 98.0 57 18 124/51 (75) 95 Room Air 98.0 11/27/21 07:00 5.0 I & 0 Intake and Output 11/27/21 07:00 Intake Total 2103 ml Output Total 1000 ml Balance 1103 ml Intake Oral 250 ml IV Total 1853 ml Output Urine Total 1000 ml # Voids 1 PHYSICAL EXAM Physical Exam General: Alert, Cooperative, No acute distress HEENT: Atraumatic, PERRLA, Other (DRY MUCOSA) Lungs: Clear to auscultation Heart: Regular rate Abdomen: Normal bowel sounds Extremities: No clubbing Skin: No breakdown Neuro: Other (NO ASYMMETRY) Psych/Mental Status: Other (PLEASANTLY CONFUSED) MUSCULOSKELETAL: No joint tenderness, Other (DIFFUSE MUSCLE ATROPHY) DIAGNOSIS/ASSESSMENT Assessment & Plan SHASHANK- 2/2 Dehydration , BUN/ Creat 132/ 6.4 POA; Improving Renal function with IVF , non Oliguric . Renal US, UA unremarkable . Avoid Nephrotoxins, maintain Hydration. I/O Dehydration POA - Maintain Hydration with IVF Hypotension - POA, Improved , stable Hx of HTN Hx of CAD COMMENT/RELEVANT DATA Meds Current Medications Medications (Trade) Dose Ordered Sig/Merced Start Time Stop Time Status Last Admin Dose Admin Al Hydroxide/Mg Hydroxide (Mylanta Plus Xs) 30 ml PRN Q3HRS PRN 11/26/21 10:45 Guaifenesin (Mucinex) 600 mg Q12HR 11/26/21 11:00 11/27/21 08:58 600 MG Heparin Sodium (Porcine) (Heparin Sodium) 5,000 unit Q12HR 11/26/21 11:00 11/27/21 09:01 5,000 UNIT Levothyroxine Sodium (Synthroid) 100 mcg DAILYAC 11/26/21 11:00 11/27/21 06:17 100 MCG Ondansetron HCl (Zofran) 4 mg PRN Q6HRS PRN 11/26/21 10:45 11/27/21 00:33 4 MG Sodium Chloride 1,000 ml @ 75 mls/hr [id number] 11/26/21 11:00 4/18/22 10:43 75 MLS/HR Lab Laboratory Tests Test 11/27/21 08:22 White Blood Count 16.9 x10^3/uL (4.0-11.0) Red Blood Count 5.54 x10^6/uL (3.50-5.40) Hemoglobin 11.9 g/dL (12.0-15.5) Hematocrit 38.5 % (36.0-47.0) Mean Corpuscular Volume 70 fL (79-100) Mean Corpuscular Hemoglobin 22 pg (25-35) Mean Corpuscular Hemoglobin Concent 31 g/dL (31-37) Red Cell Distribution Width 22.2 % (11.5-14.5) Platelet Count 428 x10^3/uL (140-400) Neutrophils (%) (Auto) 89 % (31-73) Lymphocytes (%) (Auto) 6 % (24-48) Monocytes (%) (Auto) 1 % (0-9) Eosinophils (%) (Auto) 3 % (0-3) Basophils (%) (Auto) 1 % (0-3) Neutrophils # (Auto) 15.0 x10^3/uL (1.8-7.7) Lymphocytes # (Auto) 1.0 x10^3/uL (1.0-4.8) Monocytes # (Auto) 0.2 x10^3/uL (0.0-1.1) Eosinophils # (Auto) 0.6 x10^3/uL (0.0-0.7) Basophils # (Auto) 0.1 x10^3/uL (0.0-0.2) Sodium Level 140 mmol/L (136-145) Potassium Level 4.4 mmol/L (3.5-5.1) Chloride Level 105 mmol/L (98-107) Carbon Dioxide Level 17 mmol/L (21-32) Anion Gap 18 (6-14) Blood Urea Nitrogen 91 mg/dL (7-20) Creatinine 2.9 mg/dL (0.6-1.0) Estimated GFR (Cockcroft-Gault) 15.8 Glucose Level 69 mg/dL (70-99) Calcium Level 8.5 mg/dL (8.5-10.1) C-Reactive Protein, Quantitative 1.0 mg/L (0-3.3) Results All relevant outside records, renal labs, imaging studies, telemetry/EKG's were reviewed. Justicifation of Admission Dx: Justifications for Admission: Justification of Admission Dx: Yes FILEMON LAWRENCE MD Nov 27, 2021 13:36
[2021-11-27 15:00] VITALS: BP 138/62
--- NOTE | 2021-11-27 15:33 | PDOC ---
[employer] PROGRESS NOTE Date of Service DOS: DATE: 11/27/21 TIME: 15:31 Chief Complaint Chief Complaint Acute renal failure CAD Hypothyroidism History of Present Illness History of Present Illness 11/27: Patient seen and evaluated. Afebrile, no complaints. Improvement in renal function with hydration; creatinine 2.9, EGFR 15.8. Renal ultrasound unremarkable. Avoid nephrotoxins. Will follow nephrology recommendations. Vitals/I&O Vitals/I&O: Vital Signs Date Time Temp Pulse Resp B/P (MAP) Pulse Ox O2 Delivery O2 Flow Rate FiO2 11/27/21 15:00 98.6 70 18 138/62 (87) 97 Room Air 98.6 11/27/21 07:00 5.0 I & O 11/26/21 11/26/21 11/27/21 15:00 23:00 07:00 Intake Total 521 ml 1582 ml Output Total 600 ml 400 ml 0 ml Balance -79 ml 1182 ml 0 ml Physical Exam General: Alert, Cooperative, No acute distress Heart: Regular rate Lungs: Clear Abdomen: Normal bowel sounds Extremities: No clubbing Skin: No breakdown Labs Labs: Laboratory Tests Test 11/27/21 08:22 White Blood Count 16.9 x10^3/uL (4.0-11.0) Red Blood Count 5.54 x10^6/uL (3.50-5.40) Hemoglobin 11.9 g/dL (12.0-15.5) Hematocrit 38.5 % (36.0-47.0) Mean Corpuscular Volume 70 fL (79-100) Mean Corpuscular Hemoglobin 22 pg (25-35) Mean Corpuscular Hemoglobin Concent 31 g/dL (31-37) Red Cell Distribution Width 22.2 % (11.5-14.5) Platelet Count 428 x10^3/uL (140-400) Neutrophils (%) (Auto) 89 % (31-73) Lymphocytes (%) (Auto) 6 % (24-48) Monocytes (%) (Auto) 1 % (0-9) Eosinophils (%) (Auto) 3 % (0-3) Basophils (%) (Auto) 1 % (0-3) Neutrophils # (Auto) 15.0 x10^3/uL (1.8-7.7) Lymphocytes # (Auto) 1.0 x10^3/uL (1.0-4.8) Monocytes # (Auto) 0.2 x10^3/uL (0.0-1.1) Eosinophils # (Auto) 0.6 x10^3/uL (0.0-0.7) Basophils # (Auto) 0.1 x10^3/uL (0.0-0.2) Sodium Level 140 mmol/L (136-145) Potassium Level 4.4 mmol/L (3.5-5.1) Chloride Level 105 mmol/L (98-107) Carbon Dioxide Level 17 mmol/L (21-32) Anion Gap 18 (6-14) Blood Urea Nitrogen 91 mg/dL (7-20) Creatinine 2.9 mg/dL (0.6-1.0) Estimated GFR (Cockcroft-Gault) 15.8 Glucose Level 69 mg/dL (70-99) Calcium Level 8.5 mg/dL (8.5-10.1) C-Reactive Protein, Quantitative 1.0 mg/L (0-3.3) Assessment and Plan Assessmemt and Plan Problems Medical Problems: (1) Acute kidney failure Status: Acute (2) Electrolyte abnormality Status: Acute (3) Elevated red blood cell count Status: Acute (4) Elevated white blood cell count Status: Acute (5) Malaise and fatigue Status: Acute Comment Review of Relevant I have reviewed the following items reginald (where applicable) has been applied. Justifications for Admission Other Justification Right hip fracture DOUG TOVAR MD Nov 27, 2021 15:33
[2021-11-27 19:00] VITALS: BP 149/68
[2021-11-27 23:00] VITALS: BP 162/59
[2021-11-28 07:00] VITALS: BP 174/71
[2021-11-28] MEDS: LEVOTHYROXINE 100 MCG TABLET PO SCH (08:46)
[2021-11-28] MEDS: HEPARIN for SUB-Q USE 5,000 UNIT/ML VIAL. SQ SCH ×2 (08:50→22:03)
--- NOTE | 2021-11-28 09:19 | PDOC ---
DATE OF SERVICE DATE: 11/28/21 TIME: 09:17 SUBJECTIVE ROS Denies SOB, No Nausea OBJECTIVE Vital Signs Vital Signs Date Time Temp Pulse Resp B/P (MAP) Pulse Ox O2 Delivery O2 Flow Rate FiO2 11/28/21 07:00 97.9 66 18 174/71 (105) 100 Room Air 97.9 11/27/21 07:00 5.0 I & 0 Intake and Output 11/28/21 07:00 Intake Total 9149 ml Output Total 1500 ml Balance 7649 ml Intake Oral 490 ml Blood Product IV Normal Saline Flush 3659 ml Other 5000 ml Output Urine Total 1500 ml PHYSICAL EXAM Physical Exam General: Alert, Cooperative, No acute distress HEENT: Atraumatic, PERRLA, OM moist Lungs: Clear to auscultation Heart: Regular rate Abdomen: Normal bowel sounds, NT Extremities: No clubbing Skin: No Rash Neuro: Grossly normal DIAGNOSIS/ASSESSMENT Assessment & Plan SHASHANK- 2/2 Dehydration , BUN/ Creat 132/ 6.4 POA; Improving Renal function with IVF , non Oliguric . Renal US, UA unremarkable . Avoid Nephrotoxins, maintain Hydration. I/O Dehydration POA - Maintain Hydration with IVF Hypotension - POA, Improved , stable Hx of HTN Hx of CAD COMMENT/RELEVANT DATA Meds Current Medications Medications (Trade) Dose Ordered Sig/Merced Start Time Stop Time Status Last Admin Dose Admin Al Hydroxide/Mg Hydroxide (Mylanta Plus Xs) 30 ml PRN Q3HRS PRN 11/26/21 10:45 Guaifenesin (Mucinex) 600 mg Q12HR 11/26/21 11:00 11/28/21 08:46 600 MG Heparin Sodium (Porcine) (Heparin Sodium) 5,000 unit Q12HR 11/26/21 11:00 11/27/21 09:01 5,000 UNIT Levothyroxine Sodium (Synthroid) 100 mcg DAILYAC 11/26/21 11:00 11/28/21 08:46 100 MCG Ondansetron HCl (Zofran) 4 mg PRN Q6HRS PRN 11/26/21 10:45 11/27/21 22:14 4 MG Sodium Chloride 1,000 ml @ 75 mls/hr [id number] 11/26/21 11:00 11/27/21 22:13 75 MLS/HR Results All relevant outside records, renal labs, imaging studies, telemetry/EKG's were reviewed. Justicifation of Admission Dx: Justifications for Admission: Justification of Admission Dx: Yes FILEMON LAWRENCE MD Nov 28, 2021 09:19
[2021-11-28 10:15] LABS: BASO # 0.1 x10^3/uL (0.0-0.2); BASO % 1 % (0-3); EOS # 0.4 x10^3/uL (0.0-0.7); EOS % 3 % (0-3); HEMOGLOBIN 11.8 g/dL (12.0-15.5); LYMPH # 0.9 x10^3/uL (1.0-4.8); LYMPH % 6 % (24-48); MEAN CORPUSCULAR HEMOGLOBIN 21 pg (25-35); MEAN CORPUSCULAR HGB CONC 30 g/dL (31-37); MEAN CORPUSCULAR VOLUME 70 fL (79-100); MONO # 0.2 x10^3/uL (0.0-1.1); MONO % 1 % (0-9); NEUT # 14.2 x10^3/uL (1.8-7.7); NEUT % 90 % (31-73); PLATELET COUNT 447 x10^3/uL (140-400); RED CELL DISTRIBUTION WIDTH 23.3 % (11.5-14.5); WHITE BLOOD COUNT 15.9 x10^3/uL (4.0-11.0)
[2021-11-28] MEDS: ONDANSETRON PF 4 MG/2 ML VIAL. IVP PRN (10:31)
[2021-11-28 10:32] LABS: CALCIUM 8.7 mg/dL (8.5-10.1); CREATININE 1.7 mg/dL (0.6-1.0); GFR 29.2; POTASSIUM 4.1 mmol/L (3.5-5.1)
[2021-11-28 10:36] VITALS: BP 170/71
--- NOTE | 2021-11-28 11:42 | NUR ---
Pt confused, asking to speak to sister [place]. This RN attempted to call number on file for [place] multiple times. [phone]. Phone number is not in service. This RN called [facility] and spoke with Wiley whom stated the phone number they have on file is the same. Wiley also stated that pt is normally A/Ox3. Dr. Curran notified of change in mental status.
[2021-11-28] MEDS: LORazepam 0.5 MG TABLET PO PRN (12:09)
[2021-11-28] MEDS: IV NORMAL SALINE 1000ML BAG 1,000 ML IV SCH (14:01)
[2021-11-28] MEDS ORDERED: ZIPRASIDONE IM 20 MG VIAL. IM ONE (14:30)
--- NOTE | 2021-11-28 14:32 | PDOC ---
[employer] PROGRESS NOTE Date of Service DOS: DATE: 11/28/21 TIME: 14:30 Chief Complaint Chief Complaint Acute renal failure CAD Hypothyroidism History of Present Illness History of Present Illness 11/28/2021 No acute events overnight. Patient seen examined bedside. Creatinine improved to 1.7 with IV fluids. We will continue to trend. Getting closer for discharge to [facility]. However, it was reported by patient's nurse this afternoon approximately 138 that patient had confusion episodes and was climbing out of bed. Required 1 dose of Ativan and 10 mg Geodon. Patient normally is AAOx3. Once patient is be able to redirected without any centrally acting form pharmacologic's we will consider discharge at that time. Patient's chart, labs, images were reviewed and discussed with RN 11/27: Patient seen and evaluated. Afebrile, no complaints. Improvement in renal function with hydration; creatinine 2.9, EGFR 15.8. Renal ultrasound unremarkable. Avoid nephrotoxins. Will follow nephrology recommendations. Vitals/I&O Vitals/I&O: Vital Signs Date Time Temp Pulse Resp B/P (MAP) Pulse Ox O2 Delivery O2 Flow Rate FiO2 11/28/21 10:36 98.0 65 18 170/71 (104) 98 Room Air 98.0 11/27/21 07:00 5.0 I & O 11/27/21 11/27/21 11/28/21 15:00 23:00 07:00 Intake Total 340 ml 8809 ml Output Total 650 ml 450 ml 400 ml Balance -310 ml 8359 ml -400 ml Physical Exam General: Alert, Cooperative, No acute distress Heart: Regular rate Lungs: Clear Abdomen: Normal bowel sounds Extremities: No clubbing Skin: No breakdown Labs Labs: Laboratory Tests Test 11/28/21 09:50 White Blood Count 15.9 x10^3/uL (4.0-11.0) Red Blood Count 5.60 x10^6/uL (3.50-5.40) Hemoglobin 11.8 g/dL (12.0-15.5) Hematocrit 39.0 % (36.0-47.0) Mean Corpuscular Volume 70 fL (79-100) Mean Corpuscular Hemoglobin 21 pg (25-35) Mean Corpuscular Hemoglobin Concent 30 g/dL (31-37) Red Cell Distribution Width 23.3 % (11.5-14.5) Platelet Count 447 x10^3/uL (140-400) Neutrophils (%) (Auto) 90 % (31-73) Lymphocytes (%) (Auto) 6 % (24-48) Monocytes (%) (Auto) 1 % (0-9) Eosinophils (%) (Auto) 3 % (0-3) Basophils (%) (Auto) 1 % (0-3) Neutrophils # (Auto) 14.2 x10^3/uL (1.8-7.7) Lymphocytes # (Auto) 0.9 x10^3/uL (1.0-4.8) Monocytes # (Auto) 0.2 x10^3/uL (0.0-1.1) Eosinophils # (Auto) 0.4 x10^3/uL (0.0-0.7) Basophils # (Auto) 0.1 x10^3/uL (0.0-0.2) Sodium Level 143 mmol/L (136-145) Potassium Level 4.1 mmol/L (3.5-5.1) Chloride Level 107 mmol/L (98-107) Carbon Dioxide Level 20 mmol/L (21-32) Anion Gap 16 (6-14) Blood Urea Nitrogen 51 mg/dL (7-20) Creatinine 1.7 mg/dL (0.6-1.0) Estimated GFR (Cockcroft-Gault) 29.2 Glucose Level 75 mg/dL (70-99) Calcium Level 8.7 mg/dL (8.5-10.1) Assessment and Plan Assessmemt and Plan Problems Medical Problems: (1) Acute kidney failure Status: Acute (2) Electrolyte abnormality Status: Acute (3) Elevated red blood cell count Status: Acute (4) Elevated white blood cell count Status: Acute (5) Malaise and fatigue Status: Acute Comment Review of Relevant I have reviewed the following items reginald (where applicable) has been applied. Medications: Current Medications Medications (Trade) Dose Ordered Sig/Mer[place] Route PRN Reason Start Time Stop Time Status Last Admin Dose Admin Lorazepam (Ativan) 0.25 mg PRN Q8HRS PRN PO ANXIETY / AGITATION 11/28/21 12:00 11/28/21 12:09 Ziprasidone (Geodon Im) 10 mg 1X ONCE IM 11/28/21 14:30 11/28/21 14:31 11/28/21 14:02 Justifications for Admission Other Justification Right hip fracture LAURENCE BALDWIN MD Nov 28, 2021 14:32
[2021-11-28 14:54] VITALS: BP_SYST 131; BP_SYST 191; BP_DIAS 64; BP_DIAS 77
--- NOTE | 2021-11-28 16:18 | NUR ---
Pt transferred to room 538. Report called to MARTIN Lee. Pt transported via chair by FINESSE Gonzalez. All belonging with patient at the time of transfer.
[2021-11-28 19:00] VITALS: BP 168/52
[2021-11-28 23:00] VITALS: BP 154/66
[2021-11-29 03:00] VITALS: BP 146/65
[2021-11-29] MEDS: IV NORMAL SALINE 1000ML BAG 1,000 ML IV SCH (05:19)
[2021-11-29 07:00] VITALS: BP 187/73
[2021-11-29] MEDS: LORazepam 0.5 MG TABLET PO PRN (07:59)
[2021-11-29] MEDS: LEVOTHYROXINE 100 MCG TABLET PO SCH (07:59)
[2021-11-29] MEDS: HEPARIN for SUB-Q USE 5,000 UNIT/ML VIAL. SQ SCH (08:01)
--- NOTE | 2021-11-29 08:17 | PDOC ---
[employer] PROGRESS NOTE Date of Service DOS: DATE: 11/29/21 TIME: 08:16 Chief Complaint Chief Complaint Acute renal failure CAD Hypothyroidism History of Present Illness History of Present Illness 11/29/2021 Patient seen and examined She is still pleasantly confused Creatinine has gone down from 6.4-1.7 labs for today are still pending Discussed with RN Chart reviewed 11/28/2021 No acute events overnight. Patient seen examined bedside. Creatinine improved to 1.7 with IV fluids. We will continue to trend. Getting closer for discharge to [facility]. However, it was reported by patient's nurse this afternoon approximately 138 that patient had confusion episodes and was climbing out of bed. Required 1 dose of Ativan and 10 mg Geodon. Patient normally is AAOx3. Once patient is be able to redirected without any centrally acting form pharmacologic's we will consider discharge at that time. Patient's chart, labs, images were reviewed and discussed with RN 11/27: Patient seen and evaluated. Afebrile, no complaints. Improvement in renal function with hydration; creatinine 2.9, EGFR 15.8. Renal ultrasound unremarkable. Avoid nephrotoxins. Will follow nephrology recommendations. Vitals/I&O Vitals/I&O: Vital Signs Date Time Temp Pulse Resp B/P (MAP) Pulse Ox O2 Delivery O2 Flow Rate FiO2 11/29/21 07:00 97.3 70 18 187/73 (111) 98 Room Air 97.3 I & O 11/28/21 11/28/21 11/29/21 15:00 23:00 07:00 Intake Total 1290 ml 260 ml 0 ml Output Total 0 ml Balance 1290 ml 260 ml 0 ml Physical Exam General: Alert, Cooperative, No acute distress, Other (Pleasantly confused) Heart: Regular rate Lungs: Clear Abdomen: Normal bowel sounds Extremities: No clubbing Skin: No breakdown Labs Labs: Laboratory Tests Test 11/28/21 09:50 White Blood Count 15.9 x10^3/uL (4.0-11.0) Red Blood Count 5.60 x10^6/uL (3.50-5.40) Hemoglobin 11.8 g/dL (12.0-15.5) Hematocrit 39.0 % (36.0-47.0) Mean Corpuscular Volume 70 fL (79-100) Mean Corpuscular Hemoglobin 21 pg (25-35) Mean Corpuscular Hemoglobin Concent 30 g/dL (31-37) Red Cell Distribution Width 23.3 % (11.5-14.5) Platelet Count 447 x10^3/uL (140-400) Neutrophils (%) (Auto) 90 % (31-73) Lymphocytes (%) (Auto) 6 % (24-48) Monocytes (%) (Auto) 1 % (0-9) Eosinophils (%) (Auto) 3 % (0-3) Basophils (%) (Auto) 1 % (0-3) Neutrophils # (Auto) 14.2 x10^3/uL (1.8-7.7) Lymphocytes # (Auto) 0.9 x10^3/uL (1.0-4.8) Monocytes # (Auto) 0.2 x10^3/uL (0.0-1.1) Eosinophils # (Auto) 0.4 x10^3/uL (0.0-0.7) Basophils # (Auto) 0.1 x10^3/uL (0.0-0.2) Sodium Level 143 mmol/L (136-145) Potassium Level 4.1 mmol/L (3.5-5.1) Chloride Level 107 mmol/L (98-107) Carbon Dioxide Level 20 mmol/L (21-32) Anion Gap 16 (6-14) Blood Urea Nitrogen 51 mg/dL (7-20) Creatinine 1.7 mg/dL (0.6-1.0) Estimated GFR (Cockcroft-Gault) 29.2 Glucose Level 75 mg/dL (70-99) Calcium Level 8.7 mg/dL (8.5-10.1) Assessment and Plan Assessmemt and Plan Problems Medical Problems: (1) Acute kidney failure Status: Acute (2) Electrolyte abnormality Status: Acute (3) Elevated red blood cell count Status: Acute (4) Elevated white blood cell count Status: Acute (5) Malaise and fatigue Status: Acute Acute renal failure CAD Hypothyroidism Metabolic cephalopathy Plan Continue IV fluids Trend labs especially creatinine PT OT Home meds DVT prophylaxis Full code Hope to discharge back to long-term care in [place] once her creatinine has plat eaued Comment Review of Relevant I have reviewed the following items reginald (where applicable) has been applied. Medications: Current Medications Medications (Trade) Dose Ordered Sig/Merced Route PRN Reason Start Time Stop Time Status Last Admin Dose Admin Lorazepam (Ativan) 0.25 mg PRN Q8HRS PRN PO ANXIETY / AGITATION 11/28/21 12:00 11/29/21 07:59 Ziprasidone (Geodon Im) 10 mg 1X ONCE IM 11/28/21 14:30 11/28/21 14:31 DC 11/28/21 14:02 Justifications for Admission Other Justification Right hip fracture ROSALVA SOTOMAYOR III DO Nov 29, 2021 08:17
[2021-11-29 08:26] LABS: BASO # 0.1 x10^3/uL (0.0-0.2); BASO % 1 % (0-3); EOS # 0.3 x10^3/uL (0.0-0.7); EOS % 2 % (0-3); HEMATOCRIT 38.7 % (36.0-47.0); LYMPH # 0.7 x10^3/uL (1.0-4.8); LYMPH % 5 % (24-48); MEAN CORPUSCULAR HEMOGLOBIN 22 pg (25-35); MEAN CORPUSCULAR HGB CONC 31 g/dL (31-37); MEAN CORPUSCULAR VOLUME 71 fL (79-100); MONO # 0.2 x10^3/uL (0.0-1.1); MONO % 2 % (0-9); NEUT # 14.7 x10^3/uL (1.8-7.7); NEUT % 91 % (31-73); PLATELET COUNT 431 x10^3/uL (140-400); RED BLOOD COUNT 5.49 x10^6/uL (3.50-5.40); RED CELL DISTRIBUTION WIDTH 22.9 % (11.5-14.5)
[2021-11-29 08:37] LABS: CALCIUM 8.6 mg/dL (8.5-10.1); CREATININE 1.4 mg/dL (0.6-1.0); GFR 36.6; POTASSIUM 3.9 mmol/L (3.5-5.1)
--- NOTE | 2021-11-29 10:52 | NUR ---
SS following up with discharge planning. SS reviewed pt chart and discussed with pt RN. Pt is LTC resident from [facility], ; fax [phone]. Pt is currently on room air. Clinical updates phoned and faxed to [facility]. Pt is able to return when medically ready. SS will continue to follow for discharge planning. Addendum: 11/29/21 at 1248 by JAZMIN AL SS Discharge orders received and sent to [facility]. Pt will discharge today and return to facility between 1500 and 1530. [facility] providing transportation.
[2021-11-29 11:00] VITALS: BP 189/86
--- NOTE | 2021-11-29 11:14 | PDOC ---
DATE OF SERVICE DATE: 11/29/21 TIME: 11:14 SUBJECTIVE ROS Denies SOB, No Nausea . Sitting up in chair . OBJECTIVE Vital Signs Vital Signs Date Time Temp Pulse Resp B/P (MAP) Pulse Ox O2 Delivery O2 Flow Rate FiO2 11/29/21 08:00 Room Air 11/29/21 07:00 97.3 70 18 187/73 (111) 98 97.3 I & 0 Intake and Output 11/29/21 07:00 Intake Total 1550 ml Output Total 0 ml Balance 1550 ml Intake Oral 600 ml IV Total 950 ml Output Urine Total 0 ml PHYSICAL EXAM Physical Exam General: Alert, Cooperative, No acute distress HEENT: Atraumatic, PERRLA, OM moist Lungs: Clear to auscultation Heart: Regular rate Abdomen: Normal bowel sounds, NT Extremities: No clubbing Skin: No Rash Neuro: Grossly normal DIAGNOSIS/ASSESSMENT Assessment & Plan SHASHANK- 2/2 Dehydration , BUN/ Creat 132/ 6.4 POA; Improving Renal function with IVF , non Oliguric . Renal US, UA unremarkable . Avoid Nephrotoxins, maintain Hydration. Dehydration POA - Resolved Hypotension - POA, Improved , stable Hx of HTN Hx of CAD DC planning per primary COMMENT/RELEVANT DATA Meds Current Medications Medications (Trade) Dose Ordered Sig/Merced Start Time Stop Time Status Last Admin Dose Admin Al Hydroxide/Mg Hydroxide (Mylanta Plus Xs) 30 ml PRN Q3HRS PRN 11/26/21 10:45 Guaifenesin (Mucinex) 600 mg Q12HR 11/26/21 11:00 11/29/21 07:59 600 MG Heparin Sodium (Porcine) (Heparin Sodium) 5,000 unit Q12HR 11/26/21 11:00 11/29/21 08:01 5,000 UNIT Levothyroxine Sodium (Synthroid) 100 mcg DAILYAC 11/26/21 11:00 11/29/21 07:59 100 MCG Lorazepam (Ativan) 0.25 mg PRN Q8HRS PRN 11/28/21 12:00 11/29/21 07:59 0.25 MG Ondansetron HCl (Zofran) 4 mg PRN Q6HRS PRN 11/26/21 10:45 11/28/21 10:31 4 MG Sodium Chloride 1,000 ml @ 75 mls/hr [id number] 11/26/21 11:00 11/29/21 05:19 75 MLS/HR Ziprasidone (Geodon Im) 10 mg 1X ONCE 11/28/21 14:30 11/28/21 14:31 DC 11/28/21 14:02 10 MG Lab Laboratory Tests Test 11/29/21 07:25 White Blood Count 16.0 x10^3/uL (4.0-11.0) Red Blood Count 5.49 x10^6/uL (3.50-5.40) Hemoglobin 12.0 g/dL (12.0-15.5) Hematocrit 38.7 % (36.0-47.0) Mean Corpuscular Volume 71 fL (79-100) Mean Corpuscular Hemoglobin 22 pg (25-35) Mean Corpuscular Hemoglobin Concent 31 g/dL (31-37) Red Cell Distribution Width 22.9 % (11.5-14.5) Platelet Count 431 x10^3/uL (140-400) Neutrophils (%) (Auto) 91 % (31-73) Lymphocytes (%) (Auto) 5 % (24-48) Monocytes (%) (Auto) 2 % (0-9) Eosinophils (%) (Auto) 2 % (0-3) Basophils (%) (Auto) 1 % (0-3) Neutrophils # (Auto) 14.7 x10^3/uL (1.8-7.7) Lymphocytes # (Auto) 0.7 x10^3/uL (1.0-4.8) Monocytes # (Auto) 0.2 x10^3/uL (0.0-1.1) Eosinophils # (Auto) 0.3 x10^3/uL (0.0-0.7) Basophils # (Auto) 0.1 x10^3/uL (0.0-0.2) Sodium Level 142 mmol/L (136-145) Potassium Level 3.9 mmol/L (3.5-5.1) Chloride Level 109 mmol/L (98-107) Carbon Dioxide Level 21 mmol/L (21-32) Anion Gap 12 (6-14) Blood Urea Nitrogen 31 mg/dL (7-20) Creatinine 1.4 mg/dL (0.6-1.0) Estimated GFR (Cockcroft-Gault) 36.6 Glucose Level 77 mg/dL (70-99) Calcium Level 8.6 mg/dL (8.5-10.1) Results All relevant outside records, renal labs, imaging studies, telemetry/EKG's were reviewed. Justicifation of Admission Dx: Justifications for Admission: Justification of Admission Dx: Yes FILEMON LAWRENCE MD Nov 29, 2021 11:14
[2021-11-29] MEDS ORDERED: AMOX1TAB10 PO (11:45)
--- NOTE | 2021-11-29 11:46 | SNU/HH DC ---
DISCHARGE ORDERS DISCHARGE INFORMATION: FINAL DIAGNOSIS Problems Medical Problems: (1) Acute kidney failure Status: Acute (2) Electrolyte abnormality Status: Acute (3) Elevated red blood cell count Status: Acute (4) Elevated white blood cell count Status: Acute (5) Malaise and fatigue Status: Acute CONDITION ON DISCHARGE: Stable CODE STATUS: Code Status: Full JAIL: SNF STAY <30 DAYS: No HOSPICE: HOSPICE: No HOSPICE EVAL & TREAT: No LTAC: ADMIT TO LTAC: No POST DISCHARGE ORDERS: ACTIVITY ORDERS: Activity as tolerated WEIGHT BEARING STATUS: Full weight bearing, As tolerated DIET AFTER DISCHARGE: Cardiac WOUND/INCISION CARE: Change dressing CHECKS AFTER DISCHARGE: CHECKS AFTER DISCHARGE: Check blood press - daily, Check your Temp as needed TREATMENT/EQUIPMENT ORDERS: ADAPTIVE EQUIPMENT NEEDED: None DISCHARGE MEDICATIONS: Home Meds Reported Medications Guaifenesin (Mucus ER) 600 Mg Tab.er.12h, 600 MG PO Q12HR for expectorant, TAB.SR 11/26/21 Levothyroxine Sodium (LEVOTHYROXINE SODIUM) 100 Mcg Tablet, 100 MCG PO DAILYAC for THYROID SUPPLEMENT 11/26/21 ROSALVA SOTOMAYOR III DO Nov 29, 2021 11:46
--- NOTE | 2021-11-29 15:43 | NUR ---
Discharge Note: PT DISCHARGED TO [facility]. PT LEFT FACILITY VIA TRANSPORT VAN AT 1540. PT STABLE AND ALERT UPON DISCHARGE. PT PIV REMOVED FROM R FA WITHOUT COMPLICATIONS, BANDAGE APPLIED. PT TELE MONITOR REMOVED. REPORT CALLED TO DARBY AT 1600. EDUCATED ABOUT DISCHARGE INSTRUCTIONS, DISCHARGE MEDICATIONS, AND FOLLOW-UP CARE INSTRUCTIONS. NO CONCERNS VOICED AT THIS TIME. PT LEFT WITH ALL PERSONAL BELONGINGS. [place] LONG Discharge instructions and discharge home medications reviewed with Patient and a copy given. All questions have been answered and understanding verbalized.
--- NOTE | 2021-11-30 11:49 | DS ---
DATE OF DISCHARGE: 11/29/2021 ADMISSION DIAGNOSES: Acute kidney injury, pneumonia. DISCHARGE DIAGNOSES: Resolving acute kidney injury (her creatinine went from 6.4-1.7, history of coronary artery disease and hypothyroidism, resolving pneumonia. CONSULTS: Nephrology. PROCEDURES: None. HOSPITAL COURSE: The patient is a pleasant middle-aged female who presented with weakness and mental status change. Her BUN and creatinine had bumped up to 114 and 6.7. We gave her IV fluids. We consulted Nephrology. Yesterday, I saw and examined her. She is doing well. Her creatinine came down to 1.7. We discharged to her long-term care facility. DISPOSITION: Long-term care. ACTIVITY: As tolerated. DIET: Renal. DISCHARGE MEDICATIONS: Please see the MRAD. Augmentin 500 b.i.d. p.r.n., Mucomyst ER and Synthroid 100 a day. TOTAL TIME: 35 minutes. [facility] DR: Jacky TID: [id number]
== END 2021-11-29 15:40 | DRG 682 ==
LOC: ER 17:54 → 1 WEST ICU 21:05 → 2 NORTH 22:39 → 5 NORTH 11-28 16:07
PROVIDERS: ADMIT Internal Medicine; ATTEND Internal Medicine
DX: N17.0 Acute kidney failure with tubular necrosis (principal); J96.21 Acute and chronic respiratory failure with hypoxia; J18.9 Pneumonia, unspecified organism; E86.0 Dehydration; E03.9 Hypothyroidism, unspecified; E78.00 Pure hypercholesterolemia, unspecified; E78.5 Hyperlipidemia, unspecified; F03.90 Unspecified dementia, unspecified severity, without behavioral disturbance, psychotic disturbance, mood disturbance, and anxiety; I25.10 Atherosclerotic heart disease of native coronary artery without angina pectoris; I48.91 Unspecified atrial fibrillation; I50.9 Heart failure, unspecified; N18.9 Chronic kidney disease, unspecified; Z87.891 Personal history of nicotine dependence; Z95.5 Presence of coronary angioplasty implant and graft; F32.A Depression, unspecified; F41.9 Anxiety disorder, unspecified; Z88.8 Allergy status to other drugs, medicaments and biological substances
CPT/HCPCS: 36415; 71045; 76770; 80048; 80053; 81001; 83605; 83735; 84100; 85007; 85025; 86140; 93005; 96360; J1644; J2405; J3486; J7030; J7040; 99285-25; G0378